=== PATIENT | male | born 1950 | race Caucasian/White ===

== ENCOUNTER 2016-11-30 14:36 | Observation (INO) ==
[2016-11-30] MEDS ORDERED: Aspirin 81 MG TAB.CHEW PO ONE (14:44)
[2016-11-30] MEDS ORDERED: 0.9 % Sodium Chloride 500 ML IVC ONE (14:44)
--- NOTE | 2016-11-30 14:48 | Emergency Department Note ---
Disposition Clinical Impression: PVC (premature ventricular contraction), History of pneumonia Chest pain Qualifiers: Chest pain type: unspecified Qualified Code(s): R07.9 - Chest pain, unspecified COPD (chronic obstructive pulmonary disease) Qualifiers: COPD type: unspecified COPD Qualified Code(s): J44.9 - Chronic obstructive pulmonary disease, unspecified Disposition: Admitted As Inpatient Condition: Fair [facility] Care Provider[facility] - Forms: ED Satisfaction Letter Chest Pain HPI - General Chief Complaint: ED Chest Pain Stated Complaint: Chest Pain Time Seen by Provider: 11/30/16 14:39 Source: patient, EMS Mode of arrival: EMS Limitations: no limitations Vital Signs Reviewed: Yes Nursing Notes Reviewed: Yes - History of Present Illness HPI Narrative: 66-year-old male history of COPD, hypertension presents for evaluation of chest pain. Patient noted the pain started just prior to arrival. Nonexertional retrosternal pain without radiation. Patient states that it felt like " somebody was pushing on his chest". Denies any history of heart attacks or MIs. Denies any other associated symptoms. Reports that the pain lasts approximately half hour and resolved spontaneously. Notes that he was taking his pulse ox and his heart rate was anywhere from 36-90. Denies any shortness of breath. On home oxygen at 2 L. No fevers. No cough. Patient was recently admitted at the [facility] and treated with pneumonia. On ciprofloxacin. No nausea vomiting or diaphoresis. At the time my examination the patient states that he is not any pain. Notes he took 2 baby aspirin prior to arrival. Denies any history of black tarry stools or blood in his stool. Pt complaint: chest pain - Related Data Home Medications Medication Instructions Recorded Confirmed Albuterol Neb [Proventil Neb] 2.5 mg IH Q4HR PRN 04/09/16 04/09/16 Benzoyl Peroxide [Foaming Acne 1 appl TP DAILY 04/09/16 04/09/16 Face Wash] Budesonide/Formoterol 160/4.5 2 puff IH BIDR PRN 04/09/16 04/09/16 [Symbicort 160/4.5] Calcium Carbonate [Calcium] 600 mg PO DAILY 04/09/16 04/09/16 Cholecalciferol (D-3) [Vitamin D] 1,000 unit PO DAILY 04/09/16 04/09/16 Cyanocobalamin (Vitamin B-12) 500 mcg PO DAILY 04/09/16 04/09/16 [Vitamin B12] Escitalopram [Lexapro] 20 mg PO DAILY 04/09/16 04/09/16 Fluticasone Propionate Nasal 1 spray NS DAILY PRN 04/09/16 04/09/16 [Flonase] Gabapentin [Neurontin] 1,200 mg PO HS 04/09/16 04/10/16 Gabapentin [Neurontin] 900 mg PO BID 04/09/16 04/10/16 Guaifenesin [Tab Tussin] 400 mg PO BID PRN 04/09/16 04/09/16 L. Acidophilus/Pectin, [place] 1 cap PO DAILY 04/09/16 04/09/16 [Acidophilus Probiotic Capsule] Levothyroxine [Synthroid] 25 mcg PO DAILY 04/09/16 04/09/16 Loperamide [Imodium] 2 mg PO Q4HR PRN 04/09/16 04/09/16 Mirtazapine [Remeron] 15 mg PO HS 04/09/16 04/09/16 Morphine Sulfate 15 mg PO BID 04/09/16 04/09/16 Previous Rx's Medication Instructions Recorded Ferrous Sulfate 325 mg PO DAILY@0800 #30 tablet 04/12/16 Omeprazole 20 mg PO DAILY #30 tablet. 04/12/16 Allergies Allergy/AdvReac Type Severity Reaction Status Date / Time No Known Allergies Allergy Verified 11/30/16 14:36 All systems ED: reviewed and negative except as stated. Constitutional: Reports: as per HPI. Denies: fever Eyes: Reports: as per HPI ENT ED: Reports: as per HPI Cardiovascular: Reports: as per HPI, chest pain, palpitations Respiratory: Reports: as per HPI. Denies: cough, dyspnea Gastrointestinal: Reports: as per HPI. Denies: abdominal pain, nausea, vomiting Genitourinary: Reports: as per HPI Musculoskeletal: Reports: as per HPI Integumentary: Reports: as per HPI Neurological: Reports: as per HPI Psychiatric: Reports: as per HPI Endocrine: Reports: as per HPI Hematological/Lymphatic: Reports: as per HPI Chest Pain PMH - Past Medical History Medical history: Reports: COPD, GI bleed, thyroid disease, other Surgical history: Reports: colectomy, other Psychiatric history: Reports: anxiety, depression - Social History Smoking Status: Former smoker Alcohol use: Reports: occasionally, recent Drug use: Reports: none Physical Exam - General Limitations: no limitations General appearance: alert, in no apparent distress - Head Head exam: atraumatic, normocephalic, normal inspection - Eye Eye exam: Present: normal appearance, PERRL, EOMI - ENT ENT exam: normal exam, mucous membranes moist - Neck Neck exam: Present: normal inspection, trachea midline - Chest Chest inspection: Present: normal inspection, symmetric chest wall rise - Respiratory Respiratory exam: Present: normal lung sounds bilaterally. Absent: respiratory distress - Cardiovascular Cardiovascular exam: Present: regular rate, normal rhythm - Abdominal Exam Abdominal exam: Present: soft, Non-Tender - Extremities Exam Extremities exam: Present: normal inspection. Absent: pedal edema - Expanded Lower Extremity Exam Neurovascular/Tendon exam: Present: normal capillary refill - Back Exam Back exam: Present: normal inspection. Absent: CVA tenderness (R), CVA tenderness (L) - Neurological Exam Neurological exam: Present: alert, oriented X3, CN II-XII intact - Skin Skin exam: Present: warm, dry, intact, normal color Course Course Narrative: Patient seen and examined. Patient is in no acute distress at time of exam. Patient does have a concerning history of chest pain. Patient does not have a history of heart attacks. Patient's records were reviewed. Patient will get EKG, chest x-ray, basic lab work including a troponin. Patient does not have risk factors for pulmonary embolism. No recent travel. No unilateral leg swelling. No history of DVT or PE. Patient's records reviewed shows that he had an EF of 67% with an nuclear stress test back in September of this year. Negative for ischemia or infarct. - Reevaluation(s) Reevaluation #1: Patient seen and examined. Patient continues to deny chest pain at this time. Patient's lab work reviewed shows a negative troponin with a nonacute EKG. Discussed disposition and plan of care. Recommended admission at this time. Patient agrees Time: 15:38 Vital Signs Temperature 98.0 F 11/30/16 14:38 Pulse Rate 60 11/30/16 14:38 Respiratory Rate 10 11/30/16 14:38 Blood Pressure 150/90 11/30/16 14:38 O2 Sat by Pulse Oximetry 94 11/30/16 14:38 Temperature 98.0 F 11/30/16 14:38 Pulse Rate 58 11/30/16 15:23 Respiratory Rate 10 11/30/16 14:47 Blood Pressure 142/92 11/30/16 15:23 O2 Sat by Pulse Oximetry 93 11/30/16 15:23 Oxygen Delivery Oxygen Delivery Nasal Cannula Chest Pain - MDM Narrative Medical decision making narrative: 66-year-old male for evaluation of chest pain. Patient had a concerning story with nonexertional retrosternal chest pressure she described. No history of cardiac disease in the past. Did have a negative stress test is performed back in September of this year. Given the patient's risk factors and elevated heart score patient will be admitted to the hospital service for further evaluation monitoring. Patient's pain has resolved prior to the [facility] department. Patient was also receiving antibiotics for recent pneumonia. Patient's chest x- ray does show basilar coarse interstitial markings. Patient lab work has been reviewed. Patient has a negative troponin from 30 minutes of nonexertional chest pain. Patient's EKG shows no acute changes but does show a PVC. Patient will be admitted. Patient's plan of care was discussed at bedside. All questions were answered. - Lab Data Lab results reviewed: Yes I reviewed the patient's lab results. Result diagrams: 11/30/16 14:53 11/30/16 14:53 Lab Results 11/30/16 11/30/16 11/30/16 Range/Units 14:53 14:53 14:53 WBC 6.0 (4.3-11.1) K/mcL RBC 4.86 (4.19-5.50) M/mcL Hgb 14.5 (12.9-16.9) g/dL Hct 45.6 (37.5-50.1) % MCV 93.8 (83.0-100.0) fL MCH 29.8 (28.0-33.3) pg MCHC 31.8 (31.6-35.5) g/dL RDW 13.5 (11.5-14.5) % Plt Count 136 L (140-400) K/mcL MPV 11.7 (9.4-12.4) fL Immature Gran % 0.3 (0-4) % Seg Neutrophils % 60.9 % Lymphocytes % 19.2 % Monocytes % 11.4 % Eosinophils % 7.4 % Basophils % 0.8 % Neutrophils # 3.6 (1.6-8.9) K/mcL Lymphocytes # 1.2 (0.6-4.6) K/mcL Monocytes # 0.7 (0.0-1.3) K/mcL Eosinophils # 0.4 (0.0-0.6) K/mcL Basophils # 0.1 (0.0-0.2) K/mcL Sodium 142 (136-145) mEq/L Potassium 3.8 (3.5-4.5) mEq/L Chloride 106 (98-109) mEq/L Carbon Dioxide 30 H (19-29) mEq/L BUN 17 (8-26) mg/dL Creatinine 0.96 (0.72-1.25) mg/dL Est GFR ( Amer) > 60 (> 60) Est GFR (Non-Af Amer) > 60 (> 60) BUN/Creatinine Ratio 18 (6-26) Glucose 101 H (70-99) mg/dL Calculated Osmolality 296 (280-300) Calcium 9.2 (8.6-10.8) mg/dL Troponin I (0-0.03) ng/mL B-Natriuretic Peptide 116 H (0-100) pg/mL 11/30/16 Range/Units 14:53 WBC (4.3-11.1) K/mcL RBC (4.19-5.50) M/mcL Hgb (12.9-16.9) g/dL Hct (37.5-50.1) % MCV (83.0-100.0) fL MCH (28.0-33.3) pg MCHC (31.6-35.5) g/dL RDW (11.5-14.5) % Plt Count (140-400) K/mcL MPV (9.4-12.4) fL Immature Gran % (0-4) % Seg Neutrophils % % Lymphocytes % % Monocytes % % Eosinophils % % Basophils % % Neutrophils # (1.6-8.9) K/mcL Lymphocytes # (0.6-4.6) K/mcL Monocytes # (0.0-1.3) K/mcL Eosinophils # (0.0-0.6) K/mcL Basophils # (0.0-0.2) K/mcL Sodium (136-145) mEq/L Potassium (3.5-4.5) mEq/L Chloride (98-109) mEq/L Carbon Dioxide (19-29) mEq/L BUN (8-26) mg/dL Creatinine (0.72-1.25) mg/dL Est GFR ( Amer) (> 60) Est GFR (Non-Af Amer) (> 60) BUN/Creatinine Ratio (6-26) Glucose (70-99) mg/dL Calculated Osmolality (280-300) Calcium (8.6-10.8) mg/dL Troponin I 0.00 (0-0.03) ng/mL B-Natriuretic Peptide (0-100) pg/mL - Radiology Data Radiology results reviewed: Yes I reviewed the patient's radiology results. Chest X-Ray 11/30/16 14:44 IMPRESSION: Coarsening of the basilar interstitial markings. The findings are suggestive of an infectious or inflammatory pneumonitis. Changes appear similar to images through the lung bases on CT of the abdomen in April of 2016. D/ / Surinder Tipton MD / Surinder Tipton MD Interpreting Provider: Surinder Tipton MD - EKG Data EKG attestation: Yes I reviewed and interpreted this EKG. EKG shows normal: sinus rhythm Rate: normal Rhythm: NSR [place]/QRS: normal T wave inversions noted in: III, v1 Ectopy: PVC When compared to previous EKG there are: no significant changes (04/2016) Interpretation: nonspecific ST-T wave changes Heart Score - Score History: Highly Suspicious EKG: Non Specific repolarisation Disturbance Age: Greater than 65 Risk Factors: 1-2 risk factors Troponin: Less than normal limit HEART Score Total: 6 S.B.A.RHeidi - S.B.A.RHeidi Situation: Demographics Background: Presenting Complaint Assessment: Vital Signs, Course and respsone to treatment, Patient/Family Expectation, Pertinant Lab Results Recommendation: Barrier(s) to disposition, Recommendation based on pending studies, treatments, or consults S.B.A.RHeidi Report Given to: Dr. Doni Gilliam Repor Time: 15:44
--- NOTE | 2016-11-30 14:51 | Emergency Department Note ---
Disposition Clinical Impression: Chest pain, PVC (premature ventricular contraction), COPD (chronic obstructive pulmonary disease), History of pneumonia Disposition: Admitted As Inpatient Condition: Fair General Adult HPI - General Chief complaint: ED Chest Pain Stated complaint: Chest Pain Time Seen by Provider: 11/30/16 14:39 Source: patient, EMS Mode of arrival: EMS Limitations: no limitations - History of Present Illness Pain Scale: 0 - Related Data Home Medications Medication Instructions Recorded Confirmed Albuterol Neb [Proventil Neb] 2.5 mg IH Q4HR PRN 04/09/16 11/30/16 Benzoyl Peroxide [Foaming Acne 1 appl TP DAILY 04/09/16 11/30/16 Face Wash] Budesonide/Formoterol 160/4.5 2 puff IH BIDR PRN 04/09/16 11/30/16 [Symbicort 160/4.5] Calcium Carbonate [Calcium] 600 mg PO DAILY 04/09/16 11/30/16 Cholecalciferol (D-3) [Vitamin D] 1,000 unit PO DAILY 04/09/16 11/30/16 Cyanocobalamin (Vitamin B-12) 500 mcg PO DAILY 04/09/16 11/30/16 [Vitamin B12] Escitalopram [Lexapro] 20 mg PO DAILY 04/09/16 11/30/16 Fluticasone Propionate Nasal 1 spray NS DAILY PRN 04/09/16 11/30/16 [Flonase] Gabapentin [Neurontin] 1,200 mg PO HS 04/09/16 11/30/16 Gabapentin [Neurontin] 900 mg PO BID 04/09/16 11/30/16 Guaifenesin [Tab Tussin] 400 mg PO BID PRN 04/09/16 11/30/16 L. Acidophilus/Pectin, [place] 1 cap PO DAILY 04/09/16 11/30/16 [Acidophilus Probiotic Capsule] Levothyroxine [Synthroid] 25 mcg PO DAILY 04/09/16 11/30/16 Loperamide [Imodium] 2 mg PO Q4HR PRN 04/09/16 11/30/16 Mirtazapine [Remeron] 15 mg PO HS 04/09/16 11/30/16 Morphine Sulfate 30 mg PO BID 04/09/16 11/30/16 Albuterol Sulfate [Albuterol 2 puff IH Q6HR PRN 11/30/16 11/30/16 Inhaler] Aspirin [Ecotrin] 325 mg PO DAILY 11/30/16 11/30/16 Atorvastatin Calcium [Lipitor] 20 mg PO DAILY 11/30/16 11/30/16 Benzocaine/Menthol [place] [Cepacol 1 lozenge MM Q2H 11/30/16 11/30/16 Sore Throat Lozenge] Ciprofloxacin HCl [Cipro] 500 mg PO BID 11/30/16 11/30/16 Lisinopril [Zestril] 10 mg PO DAILY 11/30/16 11/30/16 Polyethylene Glycol 3350 17 gm PO DAILY 11/30/16 11/30/16 [Smoothlax] Propranolol [Inderal] 10 mg PO TID 11/30/16 11/30/16 Previous Rx's Medication Instructions Recorded Ferrous Sulfate 325 mg PO DAILY@0800 #30 tablet 04/12/16 Omeprazole 20 mg PO DAILY #30 tablet. 04/12/16 Allergies Allergy/AdvReac Type Severity Reaction Status Date / Time No Known Allergies Allergy Verified 11/30/16 14:36 Past Medical History - Past Medical History Medical history: Reports: COPD, GI bleed, thyroid disease, other Surgical history: Reports: colectomy, other Psychiatric history: Reports: anxiety, depression - Social History Smoking Status: Former smoker Smokeless Tobacco Status: No Alcohol use: Reports: occasionally, recent Drug use: Reports: none Physical Exam - General Limitations: no limitations General appearance: alert, in no apparent distress Course Vital Signs Temperature 98.0 F 11/30/16 14:38 Pulse Rate 60 11/30/16 14:38 Respiratory Rate 10 11/30/16 14:38 Blood Pressure 150/90 11/30/16 14:38 O2 Sat by Pulse Oximetry 94 11/30/16 14:38 Temperature 97.8 F 11/30/16 18:46 Pulse Rate 57 11/30/16 18:46 Respiratory Rate 17 11/30/16 18:46 Blood Pressure 114/75 11/30/16 18:46 O2 Sat by Pulse Oximetry 93 11/30/16 18:46 Oxygen Delivery Oxygen Delivery Nasal Cannula Medical Decision Making - Lab Data Result diagrams: 11/30/16 14:53 11/30/16 14:53 Lab Results 11/30/16 11/30/1617 Range/Units 14:53 14:53 14:53 WBC 6.0 (4.3-11.1) K/mcL RBC 4.86 (4.19-5.50) M/mcL Hgb 14.5 (12.9-16.9) g/dL Hct 45.6 (37.5-50.1) % MCV 93.8 (83.0-100.0) fL MCH 29.8 (28.0-33.3) pg MCHC 31.8 (31.6-35.5) g/dL RDW 13.5 (11.5-14.5) % Plt Count 136 L (140-400) K/mcL MPV 11.7 (9.4-12.4) fL Immature Gran % 0.3 (0-4) % Seg Neutrophils % 60.9 % Lymphocytes % 19.2 % Monocytes % 11.4 % Eosinophils % 7.4 % Basophils % 0.8 % Neutrophils # 3.6 (1.6-8.9) K/mcL Lymphocytes # 1.2 (0.6-4.6) K/mcL Monocytes # 0.7 (0.0-1.3) K/mcL Eosinophils # 0.4 (0.0-0.6) K/mcL Basophils # 0.1 (0.0-0.2) K/mcL Sodium 142 (136-145) mEq/L Potassium 3.8 (3.5-4.5) mEq/L Chloride 106 (98-109) mEq/L Carbon Dioxide 30 H (19-29) mEq/L BUN 17 (8-26) mg/dL Creatinine 0.96 (0.72-1.25) mg/dL Est GFR ( Amer) > 60 (> 60) Est GFR (Non-Af Amer) > 60 (> 60) BUN/Creatinine Ratio 18 (6-26) Glucose 101 H (70-99) mg/dL Calculated Osmolality 296 (280-300) Calcium 9.2 (8.6-10.8) mg/dL Phosphorus 3.3 (2.3-4.7) mg/dL Magnesium 2.3 (1.6-2.6) mg/dL Troponin I (0-0.03) ng/mL B-Natriuretic Peptide 116 H (0-100) pg/mL 11/30/16 Range/Units 14:53 WBC (4.3-11.1) K/mcL RBC (4.19-5.50) M/mcL Hgb (12.9-16.9) g/dL Hct (37.5-50.1) % MCV (83.0-100.0) fL MCH (28.0-33.3) pg MCHC (31.6-35.5) g/dL RDW (11.5-14.5) % Plt Count (140-400) K/mcL MPV (9.4-12.4) fL Immature Gran % (0-4) % Seg Neutrophils % % Lymphocytes % % Monocytes % % Eosinophils % % Basophils % % Neutrophils # (1.6-8.9) K/mcL Lymphocytes # (0.6-4.6) K/mcL Monocytes # (0.0-1.3) K/mcL Eosinophils # (0.0-0.6) K/mcL Basophils # (0.0-0.2) K/mcL Sodium (136-145) mEq/L Potassium (3.5-4.5) mEq/L Chloride (98-109) mEq/L Carbon Dioxide (19-29) mEq/L BUN (8-26) mg/dL Creatinine (0.72-1.25) mg/dL Est GFR ( Amer) (> 60) Est GFR (Non-Af Amer) (> 60) BUN/Creatinine Ratio (6-26) Glucose (70-99) mg/dL Calculated Osmolality (280-300) Calcium (8.6-10.8) mg/dL Phosphorus (2.3-4.7) mg/dL Magnesium (1.6-2.6) mg/dL Troponin I 0.00 (0-0.03) ng/mL B-Natriuretic Peptide (0-100) pg/mL Attestation Statement - Attestation Attestation: I examined this patient and my medical decision-making was reviewed with the FREIGHT UNLOADER/PA/Advanced Practice Nurse/Resident Physician. I agree with the documented findings, disposition and treatment plan as described except to the extent set forth below. [id number] time provided Patient complains of chest discomfort. No previous history of coronary artery disease. Appears in no acute distress on exam. EKG reviewed by me
[2016-11-30 15:02] LABS: Basophils # 0.1 K/mcL (0.0-0.2); Basophils % 0.8 %; Eosinophils # 0.4 K/mcL (0.0-0.6); Eosinophils % 7.4 %; Hematocrit 45.6 % (37.5-50.1); Hemoglobin 14.5 g/dL (12.9-16.9); Immature Granulocytes % 0.3 % (0-4); Lymphocytes # 1.2 K/mcL (0.6-4.6); Lymphocytes % 19.2 %; Mean Corpuscular HGB Conc 31.8 g/dL (31.6-35.5); Mean Corpuscular Hemoglobin 29.8 pg (28.0-33.3); Mean Corpuscular Volume 93.8 fL (83.0-100.0); Mean Platelet Volume 11.7 fL (9.4-12.4); Monocytes # 0.7 K/mcL (0.0-1.3); Monocytes % 11.4 %; Neutrophils # 3.6 K/mcL (1.6-8.9); Platelet Count 136 K/mcL (140-400); Red Blood Count 4.86 M/mcL (4.19-5.50); Red Cell Distribution Width 13.5 % (11.5-14.5); Segmented Neutrophils % 60.9 %
[2016-11-30 15:14] LABS: BUN/Creatinine Ratio 18 (6-26); Blood Urea Nitrogen 17 mg/dL (8-26); Calcium 9.2 mg/dL (8.6-10.8); Carbon Dioxide 30 mEq/L (19-29); Chloride 106 mEq/L (98-109); Glucose 101 mg/dL (70-99); Osmolality,Calculated 296 (280-300); Potassium 3.8 mEq/L (3.5-4.5); Sodium 142 mEq/L (136-145); eGFR For African Americans > 60 (> 60); eGFR For Non-African Americans > 60 (> 60)
[2016-11-30 15:48] LABS: Magnesium 2.3 mg/dL (1.6-2.6); Phosphorous 3.3 mg/dL (2.3-4.7)
[2016-11-30] MEDS ORDERED: Acetaminophen 325 MG TABLET PO PRN (15:57)
[2016-11-30] MEDS ORDERED: Naloxone 0.4 MG/ML INJ IVP PRN (15:57)
--- NOTE | 2016-11-30 16:27 | Event Note ---
Date of Encounter: 11/30/16 Time of Encounter: 16:26 Patient seen and examined with nurse practitioner. Rule out acute coronary syndrome. Recent diagnoses of pneumonia. continue Levaquin. He is currently chest pain free. Initial troponin normal. Check serial troponin's. He has an appointment with Dr. Mercado at 2 PM tomorrow.
[2016-11-30] MEDS ORDERED: Budesonide/Formoterol 160/4.5 MDI IH PRN (16:39)
[2016-11-30] MEDS ORDERED: GuaiFENesin Liq 200 MG/10 ML UDC PO PRN (16:39)
--- NOTE | 2016-11-30 16:54 | Internal Med History&Physical ---
Date of Encounter: 11/30/16 Time of Encounter: 16:47 Assessment and Plan (1) Chest pain Current visit: Yes Status: Acute Patient complains of chest pain described as pressure in mid sternum with stabbing radiating to bilateral shoulders on and off for about 2 hours accompanied by lightheadedness and palpitations. EKG shows sinus rhythm with occasional PVCs. Troponin negative at 0.00. He had a stress test in September which was negative for ischemia. continuous lunchroom monitor serial troponins echocardiogram Qualifiers: Chest pain type: precordial pain Qualified Code(s): R07.2 - Precordial pain (2) COPD (chronic obstructive pulmonary disease) Current visit: No Status: Acute Patient wears 2L O2 PRN at home. Recent diagnosis of pneumonia 1 week ago, but not in exacerbation currently. duoneb treatments QID albuterol nebulizer Q2hr PRN Continue budesonide/formotorol BID titrate oxygen to maintain O2 sat > 92% Qualifiers: COPD type: unspecified COPD Qualified Code(s): J44.9 - Chronic obstructive pulmonary disease, unspecified (3) Chronic back pain Current visit: No Status: Acute Continue home doses of morphine BID and neurontin. Qualifiers: Back pain location: low back pain Back pain laterality: unspecified Sciatica presence: without sciatica Qualified Code(s): M54.5 - Low back pain; G89.29 - Other chronic pain (4) History of pneumonia Current visit: Yes Status: Acute Patient on cipro for pneumonia diagnosed 1 week ago. EKG shows prolonged QTc of 451, will switch to Doxycycline. duonebs QID albuterol nebulizer Q2hr prn titrate O2 to maintain oxygen saturation > 92%. (5) Prolonged Q-T interval on ECG Current visit: Yes Status: Acute EKG shows sinus rhythm with occasional PVCs. QTc prolonged at 451. Patient has been on cipro for the last week due to pneumonia. Will switch to doxycycline 100mg IVPB BID. Continuous lunchroom monitor. (6) DVT prophylaxis Current visit: No Status: Acute Calf sequential compression devices Patient with 2 episodes of GI bleed, with most recent episode last fall. Will hold pharmacologic prophylaxis. Internal Medicine - H&P: HPI Chief complaint: chest pain Admitted From: Emergency Dept Plans for Post Hospital Care: Home History of present illness: Mr. Abel is a 66 year old male with hypertension, COPD, hypothyroid, GERD, history of GI bleeds, presents to the ED today with complaints of chest pain. He reports it started at 1 pm this afternoon, and he describes it as pressure in the middle of his chest with occasional stabs to the left and right shoulder. The pain was on and off and lasted about 2 hours. He also noted that his heart rate was bouncing around from the 30s to the 90s during that time , he was using a pulse oximeter to track his heart rate. He reports he had some lightheadedness and headache. He denies shortness of breath, nausea, vomiting, abdominal pain, fever, chills or sweats. Evaluation in the ED included an EKG which showed sinus rhythm with occasional PVCs, no changes from previous ekg, troponin was negative at 0.00, BNP was mildly elevated at 116. WBC was normal. On exam, patient denying any active chest pain. Patient alert and oriented, in no distress. Heart had regular rhythm, lungs with some mild rhonchi in left base. Past Med Surg Social Fam HX - Past Medical History Medical history: COPD, GERD, GI bleed, hyperlipidemia, hypertension, thyroid disease, other Psychiatric history: anxiety, depression - Past Surgical History Surgical History: colectomy, orthopedic, other (toe, left wrist), other - Social History Smoking Status: Former smoker (45 pack year history) Smokeless Tobacco Status: No Alcohol use: none Drug use: none - Family History Mother Living Status: Age at : 62 Cause of : [place] Hx Family Cardiac Disorders: Yes Hx Family Respiratory Disorders: No Hx Family Cancer: Yes (Lymphoma) Hx Family GI Disorders: Yes (Ulcers) Hx Family Endocrine Disorder: No Hx Family Neuromuscular Disorders: No Hx Family Neurologic Disorders: No Hx Family HEENT Disorders: No Hx Family Autoimmune Disorders: No Father Living Status: Age at : 70 Cause of : lymphoma Hx Family Cancer: Yes Internal Medicine - H&P: Meds Albuterol Neb [Proventil Neb] 2.5 mg IH Q4HR PRN 04/09/16 [History] Benzoyl Peroxide [Foaming Acne Face Wash] 1 appl TP DAILY 04/09/16 [History] Budesonide/Formoterol 160/4.5 [Symbicort 160/4.5] 2 puff IH BIDR PRN 04/09/16 [ History] Calcium Carbonate [Calcium] 600 mg PO DAILY 04/09/16 [History] Cholecalciferol (D-3) [Vitamin D] 1,000 unit PO DAILY 04/09/16 [History] Cyanocobalamin (Vitamin B-12) [Vitamin B12] 500 mcg PO DAILY 04/09/16 [History] Escitalopram [Lexapro] 20 mg PO DAILY 04/09/16 [History] Fluticasone Propionate Nasal [Flonase] 1 spray NS DAILY PRN 04/09/16 [History] Gabapentin [Neurontin] 1,200 mg PO HS 04/09/16 [History] Gabapentin [Neurontin] 900 mg PO BID 04/09/16 [History] Guaifenesin [Tab Tussin] 400 mg PO BID PRN 04/09/16 [History] L. Acidophilus/Pectin, [place] [Acidophilus Probiotic Capsule] 1 cap PO DAILY 04/16 [History] Levothyroxine [Synthroid] 25 mcg PO DAILY 04/09/16 [History] Loperamide [Imodium] 2 mg PO Q4HR PRN 04/09/16 [History] Mirtazapine [Remeron] 15 mg PO HS 04/09/16 [History] Morphine Sulfate 30 mg PO BID 04/09/16 [History] Ferrous Sulfate 325 mg PO DAILY@0800 #30 tablet 04/12/16 [Rx] Omeprazole 20 mg PO DAILY #30 tablet. 04/12/16 [Rx] Albuterol Sulfate [Albuterol Inhaler] 2 puff IH Q6HR PRN 11/30/16 [History] Aspirin [Ecotrin] 325 mg PO DAILY 11/30/16 [History] Atorvastatin Calcium [Lipitor] 20 mg PO DAILY 11/30/16 [History] Benzocaine/Menthol Marian [Cepacol Sore Throat Lozenge] 1 lozenge MM Q2H 11/30/16 [ History] Ciprofloxacin HCl [Cipro] 500 mg PO BID 11/30/16 [History] Lisinopril [Zestril] 10 mg PO DAILY 11/30/16 [History] Polyethylene Glycol 3350 [Smoothlax] 17 gm PO DAILY 11/30/16 [History] Propranolol [Inderal] 10 mg PO TID 11/30/16 [History] Allergies No Known Allergies Allergy (Verified 11/30/16 14:36) All Systems PM: A 10-system review of systems was performed and is negative for pertinent findings except as documented above in the HPI. - Constitutional Constitutional: no chills, no fever(s), no night sweats - EENT Eyes: no change in vision, no discharge, no pain, no photophobia Ears: no ear discharge, no ear pain, no tinnitus Nose, mouth and throat: no dysphagia, no nasal discharge, no neck pain, no sore throat - Cardiovascular Cardiovascular ROS IM: chest pain, lightheadedness, palpitations, no diaphoresis , no dyspnea, no syncope - Respiratory Respiratory: no cough, no dyspnea, no wheezing, no excessive phlegm production - Gastrointestinal Gastrointestinal: no abdominal pain, no diarrhea, no hematemesis, no hematochezia, no melena, no nausea, no vomiting - Musculoskeletal Musculoskeletal ROS IM: no numbness, no tingling - Integumentary Integumentary IM: no rash, no unusual bruising - Neurological Neurological ROS: no confusion, no convulsions, no focal weakness, no numbness, no tingling, no tremor(s) - Hematologic/Lymphatic Hematologic/Lymphatic: no easy bruising - Constitutional Vitals: Temp Pulse Resp BP Pulse Ox 97.6 F 46 17 146/88 94 11/30/16 16:19 11/30/16 16:19 11/30/16 16:19 11/30/16 16:19 11/30/16 16:19 General appearance: Present: A&O X 3, pleasant, no acute distress - Head Head exam: Present: atraumatic, normocephalic - Eye Eye exam: Present: PERRL, conjuntiva pink, sclera anicteric Pupils: Present: PERRL - Neck Neck exam general surgery: Present: supple, trachea midline. Absent: lymphadenopathy - Respiratory Respiratory exam: Present: CTAB. Absent: accessory muscle use, rales, rhonchi, wheezes - Cardiovascular Cardiovascular exam: Present: RRR, +S1, +S2. Absent: diastolic murmur, gallop, rubs, systolic murmur - GI/Abdominal GI/Abdominal exam: Present: normal bowel sounds, soft, no peritoneal signs. Absent: distended, tenderness - Extremities Exam Extremities exam: Present: warm, radial pulses palpable and symetrical. Absent : calf tenderness, cyanotic, pedal edema - Neurological Exam Neurological exam: Present: CN II-XII intact, oriented X3, no focal deficits. Absent: facial droop, speech deficit - Skin Skin exam: Present: dry, intact Internal Med - H&P Results - Labs CBC & Chem 7: 11/30/16 14:53 11/30/16 14:53 Labs: All Lab Results (24 Hours) 11/30/16 11/30/16 11/30/16 Range/Units 14:53 14:53 14:53 WBC 6.0 (4.3-11.1) K/mcL RBC 4.86 (4.19-5.50) M/mcL Hgb 14.5 (12.9-16.9) g/dL Hct 45.6 (37.5-50.1) % MCV 93.8 (83.0-100.0) fL MCH 29.8 (28.0-33.3) pg MCHC 31.8 (31.6-35.5) g/dL RDW 13.5 (11.5-14.5) % Plt Count 136 L (140-400) K/mcL MPV 11.7 (9.4-12.4) fL Immature Gran % 0.3 (0-4) % Seg Neutrophils % 60.9 % Lymphocytes % 19.2 % Monocytes % 11.4 % Eosinophils % 7.4 % Basophils % 0.8 % Neutrophils # 3.6 (1.6-8.9) K/mcL Lymphocytes # 1.2 (0.6-4.6) K/mcL Monocytes # 0.7 (0.0-1.3) K/mcL Eosinophils # 0.4 (0.0-0.6) K/mcL Basophils # 0.1 (0.0-0.2) K/mcL Sodium 142 (136-145) mEq/L Potassium 3.8 (3.5-4.5) mEq/L Chloride 106 (98-109) mEq/L Carbon Dioxide 30 H (19-29) mEq/L BUN 17 (8-26) mg/dL Creatinine 0.96 (0.72-1.25) mg/dL Est GFR ( Amer) > 60 (> 60) Est GFR (Non-Af Amer) > 60 (> 60) BUN/Creatinine Ratio 18 (6-26) Glucose 101 H (70-99) mg/dL Calculated Osmolality 296 (280-300) Calcium 9.2 (8.6-10.8) mg/dL Phosphorus 3.3 (2.3-4.7) mg/dL Magnesium 2.3 (1.6-2.6) mg/dL Troponin I (0-0.03) ng/mL B-Natriuretic Peptide 116 H (0-100) pg/mL 11/30/16 Range/Units 14:53 WBC (4.3-11.1) K/mcL RBC (4.19-5.50) M/mcL Hgb (12.9-16.9) g/dL Hct (37.5-50.1) % MCV (83.0-100.0) fL MCH (28.0-33.3) pg MCHC (31.6-35.5) g/dL RDW (11.5-14.5) % Plt Count (140-400) K/mcL MPV (9.4-12.4) fL Immature Gran % (0-4) % Seg Neutrophils % % Lymphocytes % % Monocytes % % Eosinophils % % Basophils % % Neutrophils # (1.6-8.9) K/mcL Lymphocytes # (0.6-4.6) K/mcL Monocytes # (0.0-1.3) K/mcL Eosinophils # (0.0-0.6) K/mcL Basophils # (0.0-0.2) K/mcL Sodium (136-145) mEq/L Potassium (3.5-4.5) mEq/L Chloride (98-109) mEq/L Carbon Dioxide (19-29) mEq/L BUN (8-26) mg/dL Creatinine (0.72-1.25) mg/dL Est GFR ( Amer) (> 60) Est GFR (Non-Af Amer) (> 60) BUN/Creatinine Ratio (6-26) Glucose (70-99) mg/dL Calculated Osmolality (280-300) Calcium (8.6-10.8) mg/dL Phosphorus (2.3-4.7) mg/dL Magnesium (1.6-2.6) mg/dL Troponin I 0.00 (0-0.03) ng/mL B-Natriuretic Peptide (0-100) pg/mL - Diagnostic Studies Chest x-ray Additional comments: Chest X-Ray 11/30/16 14:44 IMPRESSION: Coarsening of the basilar interstitial markings. The findings are suggestive of an infectious or inflammatory pneumonitis. Changes appear similar to images through the lung bases on CT of the abdomen in April of 2016. D/ / Surinder Tipton MD / Surinder Tipton MD Interpreting Provider: Surinder Tipton MD
[2016-11-30] MEDS ORDERED: Albuterol 2.5 MG/3 ML NEBULIZER IH PRN (16:59)
[2016-11-30] MEDS: Doxycycline 100 MG in 0.9 % Sodium Chloride Mini Bag 100 ML IVPB SCH (19:17)
[2016-11-30] MEDS: Ipratropium/Albuterol Neb 3 ML IH SCH ×2 (20:01→22:15)
[2016-11-30] MEDS ORDERED: Gabapentin 400 MG CAPSULE PO SCH (21:00)
[2016-11-30] MEDS ORDERED: Mirtazapine 15 MG TABLET PO SCH (21:00)
[2016-11-30] MEDS: Gabapentin 300 MG CAPSULE PO SCH (21:22)
[2016-11-30] MEDS: *HR* Morphine Sulfate SR (12 HR) 30 MG TABLET.ER PO SCH (21:24)
[2016-12-01] MEDS: Ipratropium/Albuterol Neb 3 ML IH SCH ×2 (04:42→11:00)
[2016-12-01 05:29] LABS: Basophils % 0.7 %; Eosinophils # 0.4 K/mcL (0.0-0.6); Hematocrit 44.7 % (37.5-50.1); Hemoglobin 14.2 g/dL (12.9-16.9); Immature Granulocytes % 0.5 % (0-4); Lymphocytes # 1.4 K/mcL (0.6-4.6); Lymphocytes % 23.2 %; Mean Corpuscular HGB Conc 31.8 g/dL (31.6-35.5); Mean Corpuscular Volume 94.3 fL (83.0-100.0); Monocytes # 0.6 K/mcL (0.0-1.3); Monocytes % 9.6 %; Neutrophils # 3.5 K/mcL (1.6-8.9); Platelet Count 122 K/mcL (140-400); Red Blood Count 4.74 M/mcL (4.19-5.50); Red Cell Distribution Width 13.4 % (11.5-14.5)
[2016-12-01] MEDS: Doxycycline 100 MG in 0.9 % Sodium Chloride Mini Bag 100 ML IVPB SCH (05:51)
[2016-12-01 05:52] LABS: BUN/Creatinine Ratio 18 (6-26); Blood Urea Nitrogen 16 mg/dL (8-26); Calcium 8.8 mg/dL (8.6-10.8); Carbon Dioxide 30 mEq/L (19-29); Chloride 106 mEq/L (98-109); Glucose 96 mg/dL (70-99); Osmolality,Calculated 295 (280-300); Potassium 3.8 mEq/L (3.5-4.5); Sodium 142 mEq/L (136-145); eGFR For African Americans > 60 (> 60); eGFR For Non-African Americans > 60 (> 60)
[2016-12-01] MEDS: Gabapentin 300 MG CAPSULE PO SCH (08:07)
[2016-12-01] MEDS: *HR* Morphine Sulfate SR (12 HR) 30 MG TABLET.ER PO SCH (08:07)
[2016-12-01] MEDS ORDERED: Lactobacillus 1 EACH CAP.SPRINK PO SCH (09:00)
[2016-12-01] MEDS ORDERED: Levothyroxine 25 MCG TABLET PO SCH (09:00)
[2016-12-01] MEDS ORDERED: Cyanocobalamin (B-12) 1,000 MCG TABLET PO SCH (09:00)
[2016-12-01] MEDS ORDERED: Aspirin Enteric Coated 325 MG Tablet PO SCH (09:00)
[2016-12-01 10:50] VITALS: BP 127/80
--- NOTE | 2016-12-01 12:02 | ECHO - Doppler Report ---
Echocardiogram Name: Surinder Abel Date of Study: 12/01/2016 Date: 1950 Ht: 73.0 in Medical Record#: [id number] Age: 66 Wt: 176.0 lb Gender: Male BSA: 2.04 Order #: [id number] Location: [facility] Room #: 3B12 Reading Physician: Chan Ramirez DO, JULIANNE HEAD Roving Machine Operator: Matthew Gabriel Ordering Physician: Rekha Mcqueen CNP Primary Physician: [facility] Indications: Chest pain Impressions: LVEF 60%. Normal LV chamber size, wall thickness and function. Mild left ventricular diastolic dysfunction. Atypical septal motion of unclear etiology. Mild to moderately dilated left atrium. Mildly dilated right ventricle with normal function. Moderate pulmonary hypertension. No significant valvular dysfunction. Left Ventricular Wall Motion: Rest Echo Findings All wall segments showed normal motion. Findings: Study Quality * Technically adequate exam. ECG Findings * Sinus bradycardia. Left Ventricle * LVEF 60%. * Normal LV chamber size, wall thickness and function. * Mild left ventricular diastolic dysfunction. * Atypical septal motion of unclear etiology. Right Ventricle * Mildly dilated right ventricle with normal function. Left Atrium * Mild to moderately dilated left atrium. Right Atrium * Mildly dilated right atrium. Interatrial Septum * Interatrial septum not well evaluated. Aortic Valve * Trileaflet aortic valve. * Trace aortic regurgitation. * No aortic stenosis. Mitral Valve * Mildly thickened mitral valve leaflets. * No mitral regurgitation. * No mitral stenosis. Tricuspid Valve * Normal tricuspid valve structure and function. * Trace tricuspid regurgitation. * Moderate pulmonary hypertension. Pulmonic Valve * Normal pulmonic valve structure and function. * No pulmonic regurgitation. Aorta * Normally sized aortic root. Pericardium * The pericardium appears normal. IVC * Normal IVC dimensions and inspiratory collapse. Pulmonary Artery * Normal visualized portions of the main pulmonary artery. History Hypertension Hypercholesteremia Years 30 Packs 1.5 Family History of CAD 08/07/2015 a Previous Echo was performed. Measurements: BP: 154/ 91 2D Normal Values RVIDd: 3.50 cm <2.7 cm IVSd: .80 cm 0.6 - 1.0 cm LVIDd: 5.20 cm 3.7 - 5.6 cm LVPWd: .90 cm 0.6 - 1.1 cm LVIDs: 3.90 cm 1.5 - 3.6 cm AO: 2.90 cm < 4.0 cm LA: 4.30 cm 2.0 - 4.0cm %FS: 31.60 cm >25 % LA volume: 63 Mitral Valve Peak E:.38 m/sec Peak A:.71 m/sec E/A Ratio:0.5 Peak E' Lat Stephen:6.04 cm/s Peak E' Med Stephen:5.85 cm/s E/E' Lat Ratio:6.29 E/E' Med Ratio:6.49 Aortic Valve AI pressure Half-time: 677.00 msec Tricuspid Valve TV Regurg Peak Grad: 45.00mmHg TV Regurg Peak Stephen: 3.34m/sec Updated by Chan Ramirez DO, FACEllyn, HUMBLE WHITAKER on 12/01/2016 11:56:47 AM electronically signed on 12/01/2016 11:57:57 AM with status of Final Wall Motion [place]: 1=Normal, 2=Hypokinesis, 3=Akinesis, 4=Dyskinesis, 5=Aneurysmal, 6=Hyperkinetic, X=Not Visualized (Blank)=Missing
--- NOTE | 2016-12-01 12:38 | Discharge Summary ---
Date of Encounter: 12/01/16 Time of Encounter: 12:00 - Discharge Diagnosis (1) Chest pain Priority: Primary Status: Resolved Comments: Patient denied chest pain on the of discharge. Negative stress test in September. Echocardiogram unremarkable with ejection fraction of 60%. Euvolemic on examination. Follow up outpatient with cardiology Qualifiers: Chest pain type: precordial pain Qualified Code(s): R07.2 - Precordial pain (2) Pneumonitis Priority: Primary Status: Acute Comments: Patient was diagnosed with pneumonia 1 week prior to presentation was started on ciprofloxacin. EKG with prolonged QTC of 451 so he was changed to doxycycline. Repeat imaging consistent with inflammatory/infectious pneumonitis. Patient was on room air during this admission and denied shortness of breath above his norm. Continue doxycycline and follow-up outpatient. ITS Impressions Chest X-Ray 11/30/16 14:44 IMPRESSION: Coarsening of the basilar interstitial markings. The findings are suggestive of an infectious or inflammatory pneumonitis. Changes appear similar to images through the lung bases on CT of the abdomen in April of 2016. D/ / Surinder Tipton MD / Surinder Tipton MD Interpreting Provider: Surinder Tipton MD (3) History of pneumonia Priority: Secondary Status: Chronic (4) COPD (chronic obstructive pulmonary disease) Priority: Secondary Status: Chronic Comments: No acute exacerbation. Qualifiers: COPD type: unspecified COPD Qualified Code(s): J44.9 - Chronic obstructive pulmonary disease, unspecified (5) Chronic back pain Priority: Secondary Status: Chronic Qualifiers: Back pain location: low back pain Back pain laterality: unspecified Sciatica presence: without sciatica Qualified Code(s): M54.5 - Low back pain; G89.29 - Other chronic pain (6) Alcohol abuse Priority: Secondary Status: Chronic Comments: No signs of withdrawal during this admission (7) Hypothyroidism Priority: Secondary Status: Chronic Comments: TSH checked in April 2016 was normal. Follow-up outpatient. Qualifiers: Hypothyroidism type: unspecified Qualified Code(s): E03.9 - Hypothyroidism , unspecified (8) Anxiety and depression Priority: Secondary Status: Chronic (9) DVT prophylaxis Priority: Primary Status: Acute Comments: IPC's; pharmacologic prophylaxis contraindicated secondary to patient's lengthy history of GI bleeds. (10) PVC (premature ventricular contraction) Priority: Primary Status: Acute Comments: Telemetry with sinus rhythm and occasional PVCs. He has an appointment with his hospitality ambassador later today. (11) Prolonged Q-T interval on ECG Priority: Primary Status: Acute (12) Chronic respiratory failure Priority: Secondary Status: Chronic Comments: On 2 L per nasal cannula as needed at home. Was on room air during this admission. Qualifiers: Respiratory failure complication: unspecified whether with hypoxia or hypercapnia Qualified Code(s): J96.10 - Chronic respiratory failure, unspecified whether with hypoxia or hypercapnia - Discharge Medications Prescriptions: Doxycycline 100 mg PO BID #14 capsule Home Medications: Albuterol Neb [Proventil Neb] 2.5 mg IH Q4HR PRN 04/09/16 [History] Benzoyl Peroxide [Foaming Acne Face Wash] 1 appl TP DAILY 04/09/16 [History] Budesonide/Formoterol 160/4.5 [Symbicort 160/4.5] 2 puff IH BIDR PRN 04/09/16 [ History] Calcium Carbonate [Calcium] 600 mg PO DAILY 04/09/16 [History] Cholecalciferol (D-3) [Vitamin D] 1,000 unit PO DAILY 04/09/16 [History] Cyanocobalamin (Vitamin B-12) [Vitamin B12] 500 mcg PO DAILY 04/09/16 [History] Escitalopram [Lexapro] 20 mg PO DAILY 04/09/16 [History] Fluticasone Propionate Nasal [Flonase] 1 spray NS DAILY PRN 04/09/16 [History] Gabapentin [Neurontin] 1,200 mg PO HS 04/09/16 [History] Gabapentin [Neurontin] 900 mg PO BID 04/09/16 [History] Guaifenesin [Tab Tussin] 400 mg PO BID PRN 04/09/16 [History] L. Acidophilus/Pectin, [place] [Acidophilus Probiotic Capsule] 1 cap PO DAILY 04/16 [History] Levothyroxine [Synthroid] 25 mcg PO DAILY 04/09/16 [History] Loperamide [Imodium] 2 mg PO Q4HR PRN 04/09/16 [History] Mirtazapine [Remeron] 15 mg PO HS 04/09/16 [History] Morphine Sulfate 30 mg PO BID 04/09/16 [History] Ferrous Sulfate 325 mg PO DAILY@0800 #30 tablet 04/12/16 [Rx] Omeprazole 20 mg PO DAILY #30 tablet. 04/12/16 [Rx] Albuterol Sulfate [Albuterol Inhaler] 2 puff IH Q6HR PRN 11/30/16 [History] Aspirin [Ecotrin] 325 mg PO DAILY 11/30/16 [History] Atorvastatin Calcium [Lipitor] 20 mg PO DAILY 11/30/16 [History] Benzocaine/Menthol Marian [Cepacol Sore Throat Lozenge] 1 lozenge MM Q2H 11/30/16 [ History] Lisinopril [Zestril] 10 mg PO DAILY 11/30/16 [History] Polyethylene Glycol 3350 [Smoothlax] 17 gm PO DAILY 11/30/16 [History] Propranolol [Inderal] 10 mg PO TID 11/30/16 [History] Doxycycline 100 mg PO BID #14 capsule 12/01/16 [Rx] Allergies/Adverse Reactions: Allergies No Known Allergies Allergy (Verified 11/30/16 14:36) Procedures/tests Complete & Pending: Procedures Performed prior 72 hours Category Date Time Status EV echocardiogram Routine Y 12/01/16 17:13 Completed Date of admission: 11/30/16 15:48 Primary care physician: PCP [place] Discharging clinician: Monie Dempsey Anticipated date of discharge: 12/01/16 (has cardio appt today) - Patient Status Disposition: Home, Self-Care Condition: Fair Functional capacity at discharge: independent ambulation Overall status at discharge: patient is back to baseline - Discharge Instructions Follow Up With: [facility] [Primary Care Provider[facility] - 12/09/16 1:30 pm Megan Mercado MD [Partnered Physician] - Additional Instructions: Follow-up with primary care provider as scheduled. Follow-up with hospitality ambassador this afternoon - Diet and Activity Activity: increase activity as tolerated Diet: low fat, low cholesterol, low salt diet Hospital course: Mr. Abel is a 66 year old male past medical history of COPD on 2 L as needed at home, hypertension, hypothyroid, GERD, GI bleeds. Patient presented to emergency department chief complaint of chest pain started on the day of presentation described as pressure in the middle of his chest with occasional stabbing cessation to the right and left shoulders. Patient stating the pain was intermittent and lasted approximately 2 hours. Patient also noted that his heart rate was ranging from 30s to the 90s as he has a home pulse oximeter that he was tracking his heart rate with. He also endorsed lightheadedness and headache. He denies shortness of breath, abdominal pain. ECG in the emergency department revealed sinus rhythm with occasional PVCs, no change from prior EKGs. Patient was admitted to the hospitalist service for further evaluation and management. Patient was diagnosed with pneumonia last week and was started on ciprofloxacin. EKG with prolonged QTC of 451 so he was changed to doxycycline. Repeat chest imaging consistent with inflammatory/infectious pneumonitis. Patient was on room air during this admission and denied shortness of breath above his norm. He also denied chest pain during this admission. Echocardiogram unremarkable with ejection fraction of 60% and mild diastolic dysfunction. Patient euvolemic on examination throughout this admission. Troponins negative 3. ACS ruled out. He was discharged home in stable condition with close outpatient follow-up recommended. Of note, he has an appointment with his hospitality ambassador Dr. Megan Mercado on the afternoon of discharge. ITS Impressions Chest X-Ray 11/30/16 14:44 IMPRESSION: Coarsening of the basilar interstitial markings. The findings are suggestive of an infectious or inflammatory pneumonitis. Changes appear similar to images through the lung bases on CT of the abdomen in April of 2016. D/ / Surinder Tipton MD / Surinder Tipton MD Interpreting Provider: Surinder Tipton MD Echocardiogram impressions: LVEF 60%. Normal LV chamber size, wall thickness and function. Mild left ventricular diastolic dysfunction. Atypical septal motion of unclear etiology. Mild to moderately dilated left atrium. Mildly dilated right ventricle with normal function. Moderate pulmonary hypertension. No significant valvular dysfunction. - Time Spent with Patient Total time spent providing and/or coordinating discharge services: - Constitutional Vitals: Temp Pulse Resp BP Pulse Ox 98.0 F 59 16 127/80 93 12/01/16 10:47 12/01/16 10:47 12/01/16 11:01 12/01/16 10:47 12/01/16 11:01 General appearance: Present: A&O X 3, pleasant, no acute distress, answers questions appropriately - Head Head exam: Present: atraumatic, normocephalic - Eye Eye exam: Present: PERRL, conjuntiva pink, sclera anicteric Pupils: Present: PERRL - Neck Neck exam general surgery: Present: supple, trachea midline. Absent: lymphadenopathy - Respiratory Respiratory exam: Present: decreased breath sounds. Absent: accessory muscle use, rales, respiratory distress, rhonchi, wheezes - Cardiovascular Cardiovascular exam: Present: RRR, +S1, +S2. Absent: diastolic murmur, gallop, rubs, systolic murmur - GI/Abdominal GI/Abdominal exam: Present: normal bowel sounds, soft, no peritoneal signs. Absent: distended, tenderness - Extremities Exam Extremities exam: Present: warm, radial pulses palpable and symetrical. Absent : calf tenderness, cyanotic, pedal edema - Neurological Exam Neurological exam: Present: alert, CN II-XII intact, normal gait, oriented X3, no focal deficits, strengths equal and symetr throughout. Absent: pronater drift, facial droop, speech deficit - Skin Skin exam: Present: dry, intact, normal color, warm
--- NOTE | 2016-12-01 14:23 | Electrocardiograph Report ---
[place] [id number] Test Date: 2016-11-30 Pat Name: Surinder Abel Department: 102 Room: 3B12 Gender: M Extruder: [facility] : 1950 Requested By: Tone Ramon Order Number: [id number] Reading MD: Pa Simon MD Measurements Intervals [place] Rate: 62 P: 41 [place]: 184 QRS: -1 QRSD: 97 T: 6 QT: 446 QTc: 451 Interpretive Statements SINUS RHYTHM WITH OCCASIONAL VENTRICULAR PREMATURE COMPLEXES Electronically Signed On 12-01-2016 14:22:10 EDT by Pa Simon MD
== END 2016-12-01 13:40 | disposition home or self-care (01) ==
LOC: EMEROO 14:36 → 3BNU 14:36
PROVIDERS: ADMIT Hospitalist; ATTEND Nurse Practitioner Family

== ENCOUNTER 2019-01-09 12:58 | Inpatient (IN) ==
--- NOTE | 2019-01-09 13:39 | Emergency Department Note ---
Disposition Clinical Impression: Anemia due to blood loss, acute, Acute GI bleeding Disposition: Admitted As Inpatient Condition: Fair Time of Disposition: 15:32 General Adult HPI - General Chief complaint: ED GI Bleed Stated complaint: possible gi bleed Time Seen by Provider: 01/09/19 13:05 Source: patient, EMS Limitations: no limitations Nursing Notes Reviewed: Yes Vital Signs Reviewed: Yes - History of Present Illness HPI Narrative: 68-year-old male with history of bowel resection, COPD on home oxygen 2.5L who presents the emergency department with complaints of bright red blood per rectum which started this morning at approximately 8 AM. The patient has had 4 episodes of large-volume bright red blood passing in his stool since that time. He initially noted abdominal cramping, weakness and lightheadedness which has since resolved. He denies any straining during bowel movements. He has external hemorrhoids but denies any recent bleeding from this. He denies any blood thinners though he does take aspirin and meloxicam daily. He was also recently placed on prednisone and azithromycin for pneumonia per his PCP. He otherwise denies any recent alcohol use, last drink was approximately one month ago. He denies any hematemesis, vomiting, nausea, abdominal pain at this time, hematuria, headache or falls. Pain Scale: 3 - Related Data Home Medications Medication Instructions Recorded Confirmed Albuterol Neb [Proventil Neb] 2.5 mg IH Q4HR PRN 04/09/16 01/09/19 Budesonide/Formoterol 160/4.5 2 puff IH BIDR 04/09/16 01/09/19 [Symbicort 160/4.5] Fluticasone Propionate Nasal 1 spray NS DAILY PRN 04/09/16 01/09/19 [Flonase] Gabapentin [Neurontin] 1,200 mg PO HS 04/09/16 01/09/19 Gabapentin [Neurontin] 900 mg PO 0900,1500 04/09/16 01/09/19 L. Acidophilus/Pectin, [place] 1 cap PO DAILY 04/09/16 01/09/19 [Acidophilus Probiotic Capsule] Levothyroxine [Synthroid] 25 mcg PO DAILY 04/09/16 01/09/19 Mirtazapine [Remeron] 30 mg PO HS 04/09/16 01/09/19 Albuterol Sulfate [Albuterol 2 puff IH Q6HR PRN 05/02/17 06/11/19 Inhaler] Atorvastatin Calcium [Lipitor] 20 mg PO DAILY 11/30/16 01/09/19 Lisinopril [Zestril] 20 mg PO DAILY 11/30/16 01/09/19 Furosemide [Lasix] 40 mg PO DAILY PRN 09/26/18 01/09/19 Meloxicam [Mobic] 7.5 mg PO BID 09/26/18 01/09/19 Metoprolol Succinate [Toprol Xl] 12.5 mg PO DAILY 09/26/18 01/09/19 Morphine Sulfate SR (12 HR) [MS 1 tab PO Q12HR 09/26/18 01/09/19 Contin] Tiotropium [place] [Spiriva 2 puff IH DAILY 09/26/18 01/09/19 Respimat] guaiFENesin [Guaifenesin] 400 mg PO BID PRN 09/26/18 01/09/19 Ergocalciferol (VITAMIN D2) 50,000 unit PO QWEEK 01/09/19 01/09/19 [Vitamin D2] Escitalopram Oxalate 20 mg PO QAM 01/09/19 01/09/19 Melatonin 3 mg Tablet 6 mg PO HS 01/09/19 01/09/19 Prazosin [Minipress] 5 mg PO DAILY 01/09/19 01/09/19 Prednisone 20 mg PO DAILY 01/09/19 01/09/19 Allergies Allergy/AdvReac Type Severity Reaction Status Date / Time No Known Allergies Allergy Verified 10/06/18 14:00 Review of Systems: ROS per history of present illness, all other systems reviewed and negative or normal.ROS per history of present illness, all other systems reviewed and negative or normal. All systems ED: reviewed and negative except as stated. Review of Systems: As Per HPI Past Medical History - Past Medical History Medical history: Reports: COPD, GERD, GI bleed, hypertension, thyroid disease, other Surgical history: Reports: colectomy, other Psychiatric history: Reports: anxiety, depression - Social History Smoking Status: Never smoker Smokeless Tobacco Status: No Alcohol use: Reports: occasionally Drug use: Reports: none Physical Exam General: Conversant. No apparent distress. Follow commands. Appears stated age. Neck: No JVD. Trachea midline. Neck supple. Eyes: PERRL. No scleral icterus. HENT: Normocephalic and atraumatic. Moist mucus membranes. Telangectasias bilateral cheeks. Cardiovascular: Regular rate and rhythm. Normal S1 and S2. No murmurs appreciated. Normal capillary refill. Extremities well perfused with 2+ distal pulses bilaterally. No edema. Pulmonary: Normal and equal breath sounds bilaterally, anteriorly and posterior ly. No wheezes, rales, or rhonchi. Not in respiratory distress. Speaks in full sentences on 2.5L which is baseline. Abdomen: Soft, nondistended, and tontender. No bruits or masses. No guarding. Patient does have notable external hemorrhoid which does not appear to be actively bleeding. There is maroon colored stool on rectal exam. No palpable rectal mass. Neuro: Alert and oriented x3. No slurred speech. No focal deficits noted. Skin: No rashes noted on visualized skin., Diffuse pallor. Musculoskeletal: No bony abnormalities visualized. Moves all extremities. Psych: Normal mood. Pleasant. Makes appropriate eye contact. - General Limitations: no limitations General appearance: alert, in no apparent distress Course - Reevaluation(s) Reevaluation #1: Patietns blood pressure found to be 80s systolic on multiple readings given hemoglobin drop of 8.9 which is a 3 point drop in three months and now hypotensive, will transfuse. 2U pRBC ordered. Blood bank contacted for uncrossed blood while type and screen are pending. Time: 14:25 Reevaluation #2: PAtient undergoing first transfusion, BP in 90s systolic. Awaiting GI to return call with Dr. Adam's recommendation. Repeat paged. Time: 15:28 - Consultations Consultation #1: Discussed with Mj Livingston who will discuss case with Dr. Adam regarding endoscopy. Time: 14:53 Consultation #2: Discussed case with Mj Livingston and Dr. Adam, GI. At this point they will plan for EGD ~1730. Kept NPO for now. Do not recommend octreotide at this time given no varices on EGD in 2016 and no history of cirrhosis. Time: 15:32 Vital Signs Temperature 99.9 F H 01/09/19 13:01 Pulse Rate 89 01/09/19 13:01 Respiratory Rate 16 01/09/19 13:01 Blood Pressure 110/70 01/09/19 13:01 O2 Sat by Pulse Oximetry 95 01/09/19 13:01 Temperature 98.3 F 01/09/19 17:00 Pulse Rate 72 01/09/19 17:00 Respiratory Rate 16 01/09/19 17:00 Blood Pressure 95/68 01/09/19 17:00 O2 Sat by Pulse Oximetry 87 01/09/19 17:00 Oxygen Delivery Oxygen Delivery Nasal Cannula Medical Decision Making - MDM Narrative Medical decision making narrative: 68-year-old male who presents emergency department for possible GI bleed. The patient has had several instances of lower GI bleed, most recently in 2016 which required several units transfusion without an obvious source of bleed found at that time. On arrival the patient is in no acute distress, no significant tachycardia or hypotension. He is otherwise well-appearing though does appear slightly pale. He does have maroon-colored stool on exam and non-bleeding external hemorrhoid. Laboratory evaluation shows Hemoccult-positive, hemoglobin of 8.9 which is down approximately 3 point drop from 4 months ago at 12. On reassessment the patient was found be hypertensive with systolics in the 80s. Given his hypotension will transfuse with 2 units of uncrossed packed red blood cells. The patient has no abdominal tenderness therefore did not obtain imaging. On evaluation of the patient's home medication he is beta-blockaded therefore do not believe he can mount an appropriate tachycardic response. Patient has no prior history of variceal bleed or evidence of varices on 2016 EGD and has no history of cirrhosis. I discussed the patient's case with on- call cobbler mckay, Dr. Adam who at this point does not recommend octreotide. We have initiated a Protonix bolus and drip. The patient does have the UA and elevation above his baseline therefore do consider him more likely to have an upper GI source of bleeding. Dr. Adam plans to proceed with EGD at approximately 1730 today. We will keep him nothing by mouth until that time. Discussed case with on-call hospitalist Dr. Oliva who agrees with plan for admission and accepts the patient to the inpatient service. Patient agrees with and understands course of treatment plan including plan for admission. All questions answered. - Medical Records Medical records reviewed: Yes I reviewed the patient's medical records. - Lab Data Lab results reviewed: Yes I reviewed the patient's lab results. Result diagrams: 01/09/19 17:33 01/09/19 13:50 Lab Results 01/09/19 01/09/19 01/09/19 Range/Units 13:45 13:50 13:50 WBC 8.8 (4.3-11.1) K/mcL RBC 3.03 L (4.19-5.50) M/mcL Hgb 8.9 L (12.9-16.9) g/dL Hct 30.1 L (37.5-50.1) % MCV 99.3 (83.0-100.0) fL MCH 29.4 (28.0-33.3) pg MCHC 29.6 L (31.6-35.5) g/dL RDW 15.0 H (11.5-14.5) % Plt Count 128 L (140-400) K/mcL MPV 11.3 (9.4-12.4) fL Immature Gran % Test Not Performed Seg Neutrophils % 86.0 % Band Neutrophils % 4.0 (0-4) % Lymphocytes % 2.0 % Monocytes % 8.0 % Eosinophils % Test Not Performed Basophils % Test Not Performed Neutrophils # 7.9 (1.6-8.9) K/mcL Lymphocytes # 0.2 L (0.6-4.6) K/mcL Monocytes # 0.7 (0.0-1.3) K/mcL Eosinophils # Test Not Performed Basophils # Test Not Performed Platelet Estimate Slight Decrease L (Normal) PT (9.4-12.1) Seconds INR Sodium 139 (136-145) mEq/L Potassium 4.4 (3.5-5.1) mEq/L Chloride 105 (98-107) mEq/L Carbon Dioxide 30 H (23-29) mEq/L BUN 36 H (8-23) mg/dL Creatinine 0.85 (0.70-1.30) mg/dL Est GFR ( Amer) > 60 (> 60) Est GFR (Non-Af Amer) > 60 (> 60) BUN/Creatinine Ratio 42 H (6-26) Glucose 219 H (70-105) mg/dL Calculated Osmolality 303 H (280-300) Calcium 7.6 L (8.6-10.3) mg/dL Magnesium 1.9 (1.6-2.6) mg/dL Total Bilirubin 0.3 (0.3-1.0) mg/dL Direct Bilirubin 0.1 (0.0-0.2) mg/dL Indirect Bilirubin 0.2 (0.0-1.2) mg/dL AST 8 L (13-39) Units/L ALT 4 L (7-52) Units/L Alkaline Phosphatase 46 (34-104) Units/L Serum Total Protein 4.6 L (6.4-8.9) g/dL Albumin 2.5 L (3.5-5.7) g/dL Globulin 2.1 L (2.4-3.5) g/dL Albumin/Globulin Ratio 1.2 (1.1-2.2) Stool Occult Bld Scrn Positive A (Negative) Blood Type Antibody Screen Crossmatch 01/09/19 01/09/19 Range/Units 13:50 13:50 WBC (4.3-11.1) K/mcL RBC (4.19-5.50) M/mcL Hgb (12.9-16.9) g/dL Hct (37.5-50.1) % MCV (83.0-100.0) fL MCH (28.0-33.3) pg MCHC (31.6-35.5) g/dL RDW (11.5-14.5) % Plt Count (140-400) K/mcL MPV (9.4-12.4) fL Immature Gran % Seg Neutrophils % % Band Neutrophils % (0-4) % Lymphocytes % % Monocytes % % Eosinophils % Basophils % Neutrophils # (1.6-8.9) K/mcL Lymphocytes # (0.6-4.6) K/mcL Monocytes # (0.0-1.3) K/mcL Eosinophils # Basophils # Platelet Estimate (Normal) PT 12.2 H (9.4-12.1) Seconds INR 1.1 Sodium (136-145) mEq/L Potassium (3.5-5.1) mEq/L Chloride (98-107) mEq/L Carbon Dioxide (23-29) mEq/L BUN (8-23) mg/dL Creatinine (0.70-1.30) mg/dL Est GFR ( Amer) (> 60) Est GFR (Non-Af Amer) (> 60) BUN/Creatinine Ratio (6-26) Glucose (70-105) mg/dL Calculated Osmolality (280-300) Calcium (8.6-10.3) mg/dL Magnesium (1.6-2.6) mg/dL Total Bilirubin (0.3-1.0) mg/dL Direct Bilirubin (0.0-0.2) mg/dL Indirect Bilirubin (0.0-1.2) mg/dL AST (13-39) Units/L ALT (7-52) Units/L Alkaline Phosphatase (34-104) Units/L Serum Total Protein (6.4-8.9) g/dL Albumin (3.5-5.7) g/dL Globulin (2.4-3.5) g/dL Albumin/Globulin Ratio (1.1-2.2) Stool Occult Bld Scrn (Negative) Blood Type A POSITIVE Antibody Screen NEGATIVE Crossmatch See Detail - Radiology Data Radiology results reviewed: Yes I reviewed the patient's radiology results. Chest X-Ray 01/09/19 13:28 IMPRESSION: Stable chest. Coarsening of the interstitial markings, likely chronic. Nodule at the right base, likely a nipple shadow. Consider follow-up chest with nipple markers. D/ / Surinder Tipton MD / Surinder Tipton MD Interpreting Provider: Surinder Tipton MD - EKG Data EKG #1 EKG attestation: Yes I reviewed and interpreted this EKG. EKG results narrative: Normal sinus rhythm rate of 79. Normal axis. No acute ischemic ST or T wave changes. Normal intervals. Compared with prior from 09/25/18 there are no significant changes. Attestation Statement - Attestation Attestation: Resident Attestation: I examined this patient and my medical decision making was reviewed with the Resident Physician. I agree with the documented findings, disposition and treatment plan as described except to the extent set forth below. We independently had [id number] contact with the patient.EKG reviewed with resident physician. Agree with documentation. Patient presenting to the emergency department for evaluation of bright red bloo d per rectum. Started earlier in the day. Patient has had 4 episodes. Patient has associated weakness and fatigue. Currently undergoing treatment for pneumonia. Patient is on steroids as well as takes aspirin at home for headaches and is also taking ibuprofen. Patient did become hypotensive with in the emergency department. Blood has been transfused. Patient has 2 large IVs area GI was called and the patient will be admitted for further management. Resting in bed comfortably, generalized weakness, regular rhythm, abdomen soft nontender to palpation without guarding or rebound.
[2019-01-09 14:11] LABS: Hematocrit 30.1 % (37.5-50.1); Hemoglobin 8.9 g/dL (12.9-16.9); Mean Corpuscular HGB Conc 29.6 g/dL (31.6-35.5); Mean Corpuscular Hemoglobin 29.4 pg (28.0-33.3); Mean Corpuscular Volume 99.3 fL (83.0-100.0); Mean Platelet Volume 11.3 fL (9.4-12.4); Monocytes # 0.7 K/mcL (0.0-1.3); Platelet Count 128 K/mcL (140-400); Red Blood Count 3.03 M/mcL (4.19-5.50); White Blood Count 8.8 K/mcL (4.3-11.1)
[2019-01-09 14:21] LABS: INR 1.1; Prothrombin Time 12.2 Seconds (9.4-12.1)
[2019-01-09] MEDS ORDERED: Pantoprazole 40 MG VIAL IVP ONE (14:24)
[2019-01-09 14:27] LABS: Alanine Aminotransferase 4 Units/L (7-52); Albumin 2.5 g/dL (3.5-5.7); Albumin/Globulin Ratio 1.2 (1.1-2.2); Alkaline Phosphatase 46 Units/L (34-104); Aspartate Amino Transferase 8 Units/L (13-39); BUN/Creatinine Ratio 42 (6-26); Bilirubin,Direct 0.1 mg/dL (0.0-0.2); Bilirubin,Indirect 0.2 mg/dL (0.0-1.2); Bilirubin,Total 0.3 mg/dL (0.3-1.0); Blood Urea Nitrogen 36 mg/dL (8-23); Calcium 7.6 mg/dL (8.6-10.3); Carbon Dioxide 30 mEq/L (23-29); Chloride 105 mEq/L (98-107); Globulin 2.1 g/dL (2.4-3.5); Glucose 219 mg/dL (70-105); Lymphocytes # 0.2 K/mcL (0.6-4.6); Magnesium 1.9 mg/dL (1.6-2.6); Neutrophils # 7.9 K/mcL (1.6-8.9); Osmolality,Calculated 303 (280-300); Platelet Estimate Slight Decrease (Normal); Potassium 4.4 mEq/L (3.5-5.1); Sodium 139 mEq/L (136-145); Total Protein 4.6 g/dL (6.4-8.9); eGFR For African Americans > 60 (> 60); eGFR For Non-African Americans > 60 (> 60)
[2019-01-09] MEDS ORDERED: Pantoprazole 40 MG in 0.9 % Sodium Chloride Mini Bag 100 ML IVC SCH (14:30)
[2019-01-09] MEDS ORDERED: 0.9 % Sodium Chloride 250 ML ONE (14:44)
[2019-01-09] MEDS ORDERED: Naloxone 0.4 MG/ML INJ IVP PRN (16:56)
[2019-01-09] MEDS ORDERED: Ondansetron 4 MG/2 ML VIAL IVP PRN (16:56)
--- NOTE | 2019-01-09 16:56 | Internal Med History&Physical ---
Date of Encounter: 01/09/19 Time of Encounter: 16:56 Internal Medicine - H&P: HPI Chief complaint: GI bleed Admitted From: Emergency Dept Plans for Post Hospital Care: Home History of present illness: Mr. Abel is a 68 year old male with history of GI bleed in the past is status post bowel resection few years ago with last GI bleed 20 17(multiple episode of GI bleed almost 3 times in the past), last GI endoscope in 2016 with no varices or cirrhosis, COPD on 2.5 L home oxygen came to emergency room with complaint of bright red blood per rectum a started this morning. He had 4-5 episodes of large-volume bright red blood in the stool associated with dizziness, lightheadedness and shortness of breath. He also initially noted abdominal cramps especially right side but resolved eventually. Patient takes aspirin and meloxicam daily for chronic low back pain but not prescribed by any physician. He also got treated for pneumonia almost 10-14 days ago at [facility] and completed course of antibiotic but is still on tapering prednisone. In ER his blood pressure was found to be low but no active bleeding witnessed. Hemoglobin 8.9 with Hemoccult positive. 1 L IV fluid resuscitation was done by EMS and PRC transfusion is started in the ER. ER physician also consulted GI specialist who is planning for endoscopy possibly later today. Your physician called on-call hospitalists for the admission with diagnosis of GI bleed. Patient is nothing by mouth. Patient denies fever but had intermittent chills, chest pain headache urinary complaint. He does complain of fatigue generalized weakness lightheadedness with some shortness of breath. He also denies hemoptysis immaturity a hematemesis. Abdominal pain no complaint of abdominal pain at this time Past Med Surg Social Fam HX - Past Medical History Medical history: COPD, GERD, GI bleed, hypertension, thyroid disease, other Additional medical history: Skin cancer on the face Psychiatric history: anxiety, depression - Past Surgical History Surgical History: colectomy, other Additional surgical history: laminectomy, Right foot surgery, Left wrist surgery - Social History Smoking Status: Never smoker Smokeless Tobacco Status: No Alcohol use: occasionally Drug use: none - Family History Mother Living Status: Hx Family Cardiac Disorders: Yes Hx Family Respiratory Disorders: No Hx Family Cancer: Yes (Lymphoma) Hx Family GI Disorders: Yes (Ulcers) Hx Family Endocrine Disorder: No Hx Family Neuromuscular Disorders: No Hx Family Neurologic Disorders: No Hx Family HEENT Disorders: No Hx Family Autoimmune Disorders: No Father Living Status: Hx Family Cancer: Yes Internal Medicine - H&P: Meds Albuterol Neb [Proventil Neb] 2.5 mg IH Q4HR PRN 04/09/16 [History] Budesonide/Formoterol 160/4.5 [Symbicort 160/4.5] 2 puff IH BIDR 04/09/16 [History] Fluticasone Propionate Nasal [Flonase] 1 spray NS DAILY PRN 04/09/16 [History] Gabapentin [Neurontin] 1,200 mg PO HS 04/09/16 [History] Gabapentin [Neurontin] 900 mg PO 0900,1500 04/09/16 [History] L. Acidophilus/Pectin, [place] [Acidophilus Probiotic Capsule] 1 cap PO DAILY 04/09/16 [History] Levothyroxine [Synthroid] 25 mcg PO DAILY 04/09/16 [History] Mirtazapine [Remeron] 30 mg PO HS 04/09/16 [History] Albuterol Sulfate [Albuterol Inhaler] 2 puff IH Q6HR PRN 11/30/16 [History] Atorvastatin Calcium [Lipitor] 20 mg PO DAILY 11/30/16 [History] Lisinopril [Zestril] 20 mg PO DAILY 11/30/16 [History] Furosemide [Lasix] 40 mg PO DAILY PRN 09/26/18 [History] Meloxicam [Mobic] 7.5 mg PO BID 09/26/18 [History] Metoprolol Succinate [Toprol Xl] 12.5 mg PO DAILY 09/26/18 [History] Morphine Sulfate SR (12 HR) [MS Contin] 1 tab PO Q12HR 09/26/18 [History] Tiotropium [place] [Spiriva Respimat] 2 puff IH DAILY 09/26/18 [History] guaiFENesin [Guaifenesin] 400 mg PO BID PRN 09/26/18 [History] Ergocalciferol (VITAMIN D2) [Vitamin D2] 50,000 unit PO QWEEK 01/09/19 [History] Escitalopram Oxalate 20 mg PO QAM 01/09/19 [History] Melatonin 3 mg Tablet 6 mg PO HS 01/09/19 [History] Prazosin [Minipress] 5 mg PO DAILY 01/09/19 [History] Prednisone 20 mg PO DAILY 01/09/19 [History] Allergy/AdvReac Type Severity Reaction Status Date / Time No Known Allergies Allergy Verified 10/06/18 14:00 All Systems PM: A 10-system review of systems was performed and is negative for pertinent findings except as documented above in the HPI. - Constitutional Vitals: Temp Pulse Resp BP Pulse Ox 98.5 F 74 18 98/66 95 01/09/19 15:21 01/09/19 16:04 01/09/19 16:04 01/09/19 16:04 01/09/19 16:04 Exam: General appearance: No acute distress, A&O X 3. Family at bedside. Appear pale and tired Head exam: Atraumatic Eye exam: EOMI, PERRLA. Pallor conjunctiva ENT exam: Moist oral mucosa Neck nontender, supple Respiratory exam: Rales bilaterally more on the left side-possibly chronic. No wheezing Cardiovascular exam: Regular rate and rhythm, no systolic murmur Abdominal exam: Soft, nontender, nondistended, positive bowel sounds Extremities exam: No calf tenderness, no pedal edema Present: Skin-no rash, warm, dry, intact Neurological exam: Alert, awake, oriented 3, CN II-XII intact, no focal deficits. No facial droop. Normal speech. Internal Med - H&P Results - Labs CBC & Chem 7: 01/09/19 13:50 01/09/19 13:50 Labs: Short CBC 01/09/19 Range/Units 13:50 WBC 8.8 (4.3-11.1) K/mcL Hgb 8.9 L (12.9-16.9) g/dL Hct 30.1 L (37.5-50.1) % Plt Count 128 L (140-400) K/mcL Neutrophils # 7.9 (1.6-8.9) K/mcL BMP 01/09/19 13:50 Sodium 139 Potassium 4.4 Chloride 105 Carbon Dioxide 30 H BUN 36 H Creatinine 0.85 Glucose 219 H Calcium 7.6 L Liver Function 01/09/19 Range/Units 13:50 Total Bilirubin 0.3 (0.3-1.0) mg/dL Direct Bilirubin 0.1 (0.0-0.2) mg/dL AST 8 L (13-39) Units/L ALT 4 L (7-52) Units/L Alkaline Phosphatase 46 (34-104) Units/L Albumin 2.5 L (3.5-5.7) g/dL - Impressions ITS Impressions Chest X-Ray 01/09/19 13:28 IMPRESSION: Stable chest. Coarsening of the interstitial markings, likely chronic. Nodule at the right base, likely a nipple shadow. Consider follow-up chest with nipple markers. D/ / Surinder Tipton MD / Surinder Tipton MD Interpreting Provider: Surinder Tipton MD - Assessment and Plan (1) Acute GI bleeding Current Visit: Yes Status: Acute Assessment and plan: History of recurrent GI bleed in the past. Is status post bowel resection but no further details available. Patient has symptomatic anemia. Stool occult positive. PRC transfusion is started in the ER. Keep patient nothing by mouth, IV fluid normal saline 100 mL per hour, PRC transfusion, PPI drip. Surgery GI and plan for endoscopic possibly later today. Serial hemoglobin. SCD for DVT prophylaxis (2) Anemia due to blood loss, acute Current Visit: Yes Status: Acute Assessment and plan: as mentioned above. Hemoglobin 8.9 on admission. Noticed 3-point drop in hemoglobin compared to last 3 month. (3) Anxiety and depression Current Visit: No Status: Chronic Assessment and plan: Stable. Continue home medicine (4) Chronic back pain Current Visit: No Status: Chronic Assessment and plan: Stable. Continue home medicine Qualifiers: Back pain location: low back pain Back pain laterality: unspecified Sciatica presence: without sciatica Qualified Code(s): M54.5 - Low back pain; G89.29 - Other chronic pain (5) Chronic diastolic heart failure Current Visit: No Status: Chronic Assessment and plan: Stable and does not appear in volume overloaded. Lasix on hold for now. Echo done in November 2016 Impressions: LVEF 60%. Normal LV chamber size, wall thickness and function. Mild left ventricular diastolic dysfunction. Atypical septal motion of unclear etiology. Mild to moderately dilated left atrium. Mildly dilated right ventricle with normal function. Moderate pulmonary hypertension. No significant valvular dysfunction. Left Ventricular Wall Motion: Rest Echo Findings All wall segments showed normal motion. (6) Hypertension Current Visit: No Status: Chronic Assessment and plan: Low blood pressure at this time. Blood pressure medicine on hold Qualifiers: Hypertension type: unspecified Qualified Code(s): I10 - Essential (primary) hypertension (7) Hypothyroidism Current Visit: No Status: Chronic Assessment and plan: Continue home medicine Qualifiers: Hypothyroidism type: unspecified Qualified Code(s): E03.9 - Hypothyroidism, unspecified (8) DVT prophylaxis Current Visit: No Status: Acute Assessment and plan: SCDs - Time Spent With Patient Total time spent is greater than 50% in coordination of care (as documented) at patient's floor/unit and/or counseling patient:
[2019-01-09] MEDS ORDERED: Albuterol 2.5 MG/3 ML NEBULIZER IH PRN (17:04)
[2019-01-09] MEDS ORDERED: Fluticasone Propionate Nasal 50 MCG/SPRAY BOTTLE NS PRN (17:04)
[2019-01-09] MEDS ORDERED: D5% in Water 1,000 ML IVC PRN (17:26)
[2019-01-09] MEDS ORDERED: Dextrose Gel 15 GM/37.5 ML TUBE PO PRN ×2 (17:26)
[2019-01-09] MEDS ORDERED: *HR* Dextrose 50 % in Water (Syg) 50 ML SYRINGE IVP PRN (17:26)
[2019-01-09 17:47] LABS: Hematocrit 34.7 % (37.5-50.1)
[2019-01-09 17:52] LABS: Hemoglobin 10.6 g/dL (12.9-16.9)
[2019-01-09] MEDS ORDERED: 0.9 % Sodium Chloride 500 ML ONE (17:59)
[2019-01-09] MEDS: Morphine Sulfate ER (12 HR) 15 MG TABLET.ER PO SCH (18:09)
[2019-01-09] MEDS: Cholecalciferol (D-3) 1,000 UNIT TABLET PO SCH (18:09)
[2019-01-09] MEDS: Insulin LISPRO 300 UNITS/3 ML VIAL SQ SCH (18:20)
[2019-01-09 18:21] LABS: Estimated Average Glucose 146 mg/dl
[2019-01-09] MEDS: 0.9 % Sodium Chloride 1,000 ML IVC SCH (18:24)
--- NOTE | 2019-01-09 18:24 | Event Note ---
Date of Encounter: 01/09/19 Time of Encounter: 18:00 Patient seen. Patient with a history of recurrent lower GI bleed first time in 2005. Had a hemicolectomy done and then repeat bleeding 2015 and . Previous workup have been negative including multiple scopes and capsule endoscopies. Bleeding this time started around 8 am the last bloody bowel movement was ~ 12 pm. per patient is not bleeding anymore and is feeling hungry and wants to eat. Rec: Patient to gets 2nd blood hemodynamically stable and asymptomatic. If he starts bleeding again will need bleeding scan stat. We will tentatively prep him for possible scopes tomorrow
[2019-01-09] MEDS: Budesonide/Formoterol 160/4.5 1 PUFF INH IH SCH (19:59)
[2019-01-09] MEDS: Pantoprazole 40 MG in 0.9 % Sodium Chloride Mini Bag 100 ML IVC SCH ×2 (20:02→22:32)
[2019-01-09] MEDS ORDERED: Acetaminophen IV 1,000 MG/100 ML INFUS..BTL IVPB ONE (20:08)
[2019-01-09 23:26] LABS: Hematocrit 38.2 % (37.5-50.1); Hemoglobin 11.9 g/dL (12.9-16.9)
[2019-01-10] MEDS: Insulin LISPRO 300 UNITS/3 ML VIAL SQ SCH ×4 (00:52→18:02)
[2019-01-10] MEDS: Pantoprazole 40 MG in 0.9 % Sodium Chloride Mini Bag 100 ML IVC SCH ×5 (00:53→23:46)
[2019-01-10] MEDS: 0.9 % Sodium Chloride 1,000 ML IVC SCH ×2 (04:50→14:28)
[2019-01-10] MEDS: Morphine Sulfate ER (12 HR) 15 MG TABLET.ER PO SCH ×2 (05:59→18:02)
[2019-01-10] MEDS: Levothyroxine 25 MCG TABLET PO SCH (05:59)
[2019-01-10] MEDS ORDERED: 0.9 % Sodium Chloride 1,000 ML IVC SCH (06:55)
[2019-01-10] MEDS: (Tiotropium Bromide [Spiriva Respimat] 2 PUFF) IH SCH (08:12)
[2019-01-10] MEDS: Lactobacillus 1 EACH CAP.SPRINK PO SCH (08:34)
[2019-01-10] MEDS: Cholecalciferol (D-3) 1,000 UNIT TABLET PO SCH (08:34)
[2019-01-10 08:55] LABS: Basophils % 0.1 %; Eosinophils # 0.1 K/mcL (0.0-0.6); Eosinophils % 1.8 %; Hematocrit 34.7 % (37.5-50.1); Hemoglobin 10.8 g/dL (12.9-16.9); Immature Granulocytes % 0.4 % (0-4); Lymphocytes # 0.8 K/mcL (0.6-4.6); Lymphocytes % 10.1 %; Mean Corpuscular HGB Conc 31.1 g/dL (31.6-35.5); Mean Corpuscular Hemoglobin 29.2 pg (28.0-33.3); Mean Corpuscular Volume 93.8 fL (83.0-100.0); Mean Platelet Volume 10.9 fL (9.4-12.4); Monocytes # 0.8 K/mcL (0.0-1.3); Monocytes % 10.5 %; Neutrophils # 5.7 K/mcL (1.6-8.9); Platelet Count 122 K/mcL (140-400); Red Cell Distribution Width 16.2 % (11.5-14.5); Segmented Neutrophils % 77.1 %; White Blood Count 7.4 K/mcL (4.3-11.1)
[2019-01-10 09:15] LABS: BUN/Creatinine Ratio 42 (6-26); Blood Urea Nitrogen 28 mg/dL (8-23); Calcium 7.7 mg/dL (8.6-10.3); Carbon Dioxide 29 mEq/L (23-29); Chloride 105 mEq/L (98-107); Glucose 103 mg/dL (70-105); Osmolality,Calculated 292 (280-300); Potassium 3.5 mEq/L (3.5-5.1); Sodium 138 mEq/L (136-145); eGFR For African Americans > 60 (> 60); eGFR For Non-African Americans > 60 (> 60)
[2019-01-10] MEDS: Acetaminophen 325 MG TABLET PO PRN ×2 (09:47→19:35)
[2019-01-10] MEDS: Budesonide/Formoterol 160/4.5 1 PUFF INH IH SCH ×2 (11:20→20:12)
--- NOTE | 2019-01-10 12:56 | Gastroenterology Consult Note ---
Date of Encounter: 01/10/19 Time of Encounter: 10:50 - Assessment and plan (1) GI bleed Current Visit: No Status: Acute Assessment and plan: Pt with several large volume BRBPR. Hgb 8.9 on admission and 11.9 today. Received 2 units PRBC. No further bleeding noted. Plan for EGD and colonoscopy tomorrow. Clear liquid diet today, no red or purple. NPO at midnight. If unable tolerate NuLytely please use MiraLAX prep. If not clear by 6 AM, give 2 tap water enemas. Qualifiers: GI bleed type/associated pathology: unspecified gastrointestinal hemorrhage type Qualified Code(s): K92.2 - Gastrointestinal hemorrhage, unspecified - Time Spent With Patient Total time spent is greater than 50% in coordination of care (as documented) at patient's floor/unit and/or counseling patient: GI History of Present Illness - Data of Consult Patient: new to practice Consult date: 01/10/19 Requesting Physician: Celsa Oliva - Consult Narrative Reason for consult: GI bleed History of present illness: Mr. Abel is a 68 year old male with PMHx of COPD, GERD, GI bleed, HTN, s/p sigmoid resection (12/20/2006 Dr. Ybarra) who presented with several episodes of large volume bright red blood per rectum with associated SOB and fatigue. He denies abdominal pain. On admission Hgb 8.9 and today Hgb 11.9 after 2 units PRBC. He denies nausea, vomiting, coffee-ground emesis, or hematemesis. Procedures: Colonoscopy 04/19/2016 Dr. Hinojosa: Hematin in the the entire colon, internal hemorrhoids. EGD 04/09/2016 Dr. Hinojosa: Normal. Colonoscopy 06/18/2008 Dr. Collado: Minimal patchy inflammation. EGD 01/29/2004 Dr. Collado: Gastric ulcer, mild chronic inflammation. EGD 03/27/2004 Dr. Collado: Gastritis, healing gastric ulcer. NSAIDs: Mobic Anticoagulation: None Past Med Surg Social Fam HX - Past Medical History Medical history: COPD, GERD, GI bleed, hypertension, thyroid disease, other Additional medical history: Skin cancer on the face Psychiatric history: anxiety, depression - Past Surgical History Surgical History: colectomy, other Additional surgical history: laminectomy, Right foot surgery, Left wrist surgery - Social History Smoking Status: Never smoker Smokeless Tobacco Status: No Alcohol use: occasionally Drug use: none - Family History Mother Living Status: Hx Family Cardiac Disorders: Yes Hx Family Respiratory Disorders: No Hx Family Cancer: Yes (Lymphoma) Hx Family GI Disorders: Yes (Ulcers) Hx Family Endocrine Disorder: No Hx Family Neuromuscular Disorders: No Hx Family Neurologic Disorders: No Hx Family HEENT Disorders: No Hx Family Autoimmune Disorders: No Father Living Status: Hx Family Cancer: Yes - Gastrointestinal Gastrointestinal: Present: as per HPI - Constitutional Constitutional: as per HPI - EENT Eyes: as per HPI Ears: Present: as per HPI Nose, mouth and throat: Present: as per HPI - Cardiovascular Cardiovascular ROS: Present: as per HPI - Respiratory Respiratory IM: Present: as per HPI - Genitourinary Genitourinary: Absent: change in color, Urinary frequency - Neurological ROS Neurological GI: Present: as per HPI - Hematologic/Lymphatic Hematologic/Lymphatic pediatric: Present: as per HPI - Musculoskeletal Musculoskeletal ROS GI: Present: as per HPI - Integumentary Integumentary GI: Present: as per HPI - Psychiatric ROS Psychiatric GI: Present: as per HPI - Endocrine Endocrine IM: Present: as per HPI - Constitutional Vitals: Temp Pulse Resp BP Pulse Ox 99.1 F 97 18 76/51 88 01/10/19 11:41 01/10/19 11:41 01/10/19 11:41 01/10/19 11:41 01/10/19 11:41 General appearance: Present: cooperative, A&O X 3, no acute distress, answers questions appropriately - Head Head exam: Present: atraumatic, normocephalic - Eye Eye exam: Present: normal appearance, sclera anicteric - ENT ENT exam: Present: mucous membranes dry - Neck Neck exam general surgery: Present: normal inspection, trachea midline - Respiratory Respiratory exam: Present: CTAB. Absent: rales, rhonchi - Cardiovascular Cardiovascular exam: Present: RRR, +S1, +S2 - GI/Abdominal GI/Abdominal exam: Present: soft, no peritoneal signs. Absent: distended, firm, guarding, tenderness - Rectal Rectal exam: Present: deferred - Extremities Exam Extremities exam: Present: warm - Neurological Exam Neurological exam: Present: no focal deficits - Psychiatric Psychiatric exam: Present: normal affect, normal mood - Skin Skin exam: Present: dry, intact, normal color, warm Results - Labs CBC & Chem 7: 01/10/19 08:42 01/10/19 08:42 Labs: Last Result 01/10/19 08:42 Calcium 7.7 L Entire Visit 01/10/19 08:42 Hgb 10.8 L Hct 34.7 L - ABG ABG results: PT/INR, D-dimer PT 12.2 Seconds (9.4-12.1) H 01/09/19 13:50 - Impressions Impressions Chest X-Ray 01/09/19 13:28 IMPRESSION: Stable chest. Coarsening of the interstitial markings, likely chronic. Nodule at the right base, likely a nipple shadow. Consider follow-up chest with nipple markers. D/ / Surinder Tipton MD / Surinder Tipton MD Interpreting Provider: Surinder Tipton MD Consult Discharge Plan - Plan [facility]errals: [facility] [Primary Care Provider] - 01/18/19 3:00 pm Cuate Adam MD [Partnered Physician] - (sent web request on 01-10-19 @ [id number])
[2019-01-10] MEDS ORDERED: Propofol 500 MG/50 ML INFUS..BTL ONE (13:35)
[2019-01-10] MEDS ORDERED: *HR* Propofol 200 MG/20 ML VIAL IVP ONE (14:03)
[2019-01-10 14:13] LABS: Hematocrit 30.2 % (37.5-50.1); Hemoglobin 9.6 g/dL (12.9-16.9)
--- NOTE | 2019-01-10 14:35 | Anesthesia Evaluation PreOp ---
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 Acidophilus/Pectin, Barber [Acidophilus Probiotic Capsule] 1 cap PO DAILY 04/09/16 [History] Levothyroxine [Synthroid] 25 mcg PO DAILY 04/09/16 [History] Mirtazapine [Remeron] 30 mg PO HS 04/09/16 [History] Albuterol Sulfate [Albuterol Inhaler] 2 puff IH Q6HR PRN 11/30/16 [History] Atorvastatin Calcium [Lipitor] 20 mg PO DAILY 11/30/16 [History] Lisinopril [Zestril] 20 mg PO DAILY 11/30/16 [History] Furosemide [Lasix] 40 mg PO DAILY PRN 09/26/18 [History] Meloxicam [Mobic] 7.5 mg PO BID 09/26/18 [History] Metoprolol Succinate [Toprol Xl] 12.5 mg PO DAILY 09/26/18 [History] Morphine Sulfate SR (12 HR) [MS Contin] 1 tab PO Q12HR 09/26/18 [History] Tiotropium Danielson [Spiriva Respimat] 2 puff IH DAILY 09/26/18 [History] guaiFENesin [Guaifenesin] 400 mg PO BID PRN 09/26/18 [History] Ergocalciferol (VITAMIN D2) [Vitamin D2] 50,000 unit PO QWEEK 01/09/19 [History] Escitalopram Oxalate 20 mg PO QAM 01/09/19 [History] Melatonin 3 mg Tablet 6 mg PO HS 01/09/19 [History] Prazosin [Minipress] 5 mg PO DAILY 01/09/19 [History] Prednisone 20 mg PO DAILY 01/09/19 [History] Allergy/AdvReac Type Severity Reaction Status Date / Time No Known Allergies Allergy Verified 10/06/18 14:00 - Meds/Allergy Pre-op Review Medications Reviewed: Yes Allergies Reviewed: Yes Beta Blockers on Current Med List: No Anesthesia Results - Labs 01/10/19 13:44 01/10/19 08:42 Laboratory Tests 09/25/18 01/09/19 01/10/19 17:52 13:50 13:44 Hgb 9.6 L Hct 30.2 L PT 12.2 H D-Dimer 795 H Anesthesia Exam Selected Entries 01/10/19 14:20 Temperature 98.5 F Pulse Rate 99 Respiratory Rate 16 Blood Pressure 102/69 O2 Sat by Pulse Oximetry 92 - HEENT Pupil (Motor): EOMI Mallampati: III Teeth: Poor dentition Oral Opening: Greater than 3 - POWDER COAT PAINTER LOC: Oriented POWDER COAT PAINTER Motor: Normal RUE, Normal LUE, Normal RLE, Normal LLE, Normal Face POWDER COAT PAINTER Sensory: Normal: RUE, LUE, RLE, LLE, Face - Cardiac Rhythm: Regular Murmur: None - Pulmonary Breath Sounds: bilateral Clear Respiratory Effort: Symmetrical Anesthesia Assess/Plan ASA Score: 3 Level of consciousness: Cooperative, Oriented, Tranquil Anesthetic Plan: MAC Monitoring Plan: Standard Monitors Recovery Plan: Other (agrees to GA)
--- NOTE | 2019-01-10 16:50 | Internal Med Progress Note ---
Hospitalist Progress Note - Encounter Date of Encounter: 01/10/19 Time of Encounter: 13:47 - Subjective Interval History: Patient had [address] sherwoodry stool overnight. Denies hematemesis hematochezia or hemoptysis. Family at bedside. Reviewed lab in vitals. Patient complained of fatigue generalized weakness but denies fever chills nausea vomiting headache dizziness chest pain shortness of breath abdominal pain urinary complaint - Exam Vitals: Temp Pulse Resp BP Pulse Ox 98.4 F 74 18 126/77 91 01/10/19 16:22 01/10/19 16:22 01/10/19 16:22 01/10/19 16:22 01/10/19 16:22 Exam: General appearance: No acute distress, A&O X 3. Family at bedside. Eye exam: EOMI, PERRLA. Pallor conjunctiva ENT exam: Moist oral mucosa Neck nontender, supple Respiratory exam: Decreased breath sounds at base with a few rales-? Chronic. No wheezing or crepitation Cardiovascular exam: Regular rate and rhythm, no systolic murmur Abdominal exam: Soft, nontender, nondistended, positive bowel sounds Extremities exam: No calf tenderness, no pedal edema Present: Skin-no rash, warm, dry, intact Neurological exam: Alert, awake, oriented 3, CN II-XII intact, no focal deficits. No facial droop. Normal speech. - Assessment and Plan (1) Acute GI bleeding Current Visit: Yes Status: Acute Assessment and Plan: History of recurrent GI bleed in the past. Is status post hernan-colectomy and then repeat bleeding 2015 and . had multiple scope and Endoscopically with No Significant Finding. Patient has symptomatic anemia. Stool occult positive. Hemoglobin is stable after 2 unit blood transfusion today. Plan for endoscopy today. Keep patient nothing by mouth, IV fluid normal saline 100 mL per hour, PRC transfusion if needed, PPI drip. Serial hemoglobin. SCD for DVT prophylaxis (2) Anemia due to blood loss, acute Current Visit: Yes Status: Acute Assessment and Plan: as mentioned above. Hemoglobin 8.9 on admission. Noticed 3-point drop in hemoglobin compared to last 3 month. (3) Anxiety and depression Current Visit: No Status: Chronic Assessment and Plan: Stable. Continue home medicine (4) Chronic back pain Current Visit: No Status: Chronic Assessment and Plan: Stable. Continue home medicine (5) Chronic diastolic heart failure Current Visit: No Status: Chronic Assessment and Plan: Stable and does not appear in volume overloaded. Lasix on hold for now. Echo done in November 2016 Impressions: LVEF 60%. Normal LV chamber size, wall thickness and function. Mild left ventricular diastolic dysfunction. Atypical septal motion of unclear etiology. Mild to moderately dilated left atrium. Mildly dilated right ventricle with normal function. Moderate pulmonary hypertension. No significant valvular dysfunction. Left Ventricular Wall Motion: Rest Echo Findings All wall segments showed normal motion. (6) Hypertension Current Visit: No Status: Chronic Assessment and Plan: Low blood pressure on admission therefore Blood pressure medicine was on hold. Pressure blood pressure now. Will stop IV fluid and restart home medicine when appropriate (7) Hypothyroidism Current Visit: No Status: Chronic (8) DVT prophylaxis Current Visit: No Status: Acute Assessment and Plan: SCDs - Time Spent with Patient Total time spent is greater than 50% in coordination of care (as documented) at patient's floor/unit and/or counseling patient: 25 - 35 minutes Plan of Care Discussed with: patient Internal Medicine: Result - Labs CBC & Chem 7: 01/10/19 13:44 01/10/19 08:42 Labs: Short CBC 01/09/19 01/09/19 01/10/19 Range/Units 17:33 22:59 08:42 WBC 7.4 (4.3-11.1) K/mcL Hgb 10.6 L D 11.9 L 10.8 L (12.9-16.9) g/dL Hct 34.7 L 38.2 34.7 L (37.5-50.1) % Plt Count 122 L (140-400) K/mcL Neutrophils # 5.7 (1.6-8.9) K/mcL 01/10/19 Range/Units 13:44 WBC (4.3-11.1) K/mcL Hgb 9.6 L (12.9-16.9) g/dL Hct 30.2 L (37.5-50.1) % Plt Count (140-400) K/mcL Neutrophils # (1.6-8.9) K/mcL BMP 01/10/19 08:42 Sodium 138 Potassium 3.5 Chloride 105 Carbon Dioxide 29 BUN 28 H Creatinine 0.67 L Glucose 103 Calcium 7.7 L - ABG Interpretation ABG results: PT/INR, D-dimer PT 12.2 Seconds (9.4-12.1) H 01/09/19 13:50 Consult Discharge Plan - Plan Referrals: [facility],PCP [Primary Care Provider] - 01/18/19 3:00 pm Cuate Adam MD [Partnered Physician] - (sent web request on 01-10-19 @ [id number]) (4) Chronic back pain Qualifiers: Back pain location: low back pain Back pain laterality: unspecified Sciatica presence: without sciatica Qualified Code(s): M54.5 - Low back pain; G89.29 - Other chronic pain (6) Hypertension Qualifiers: Hypertension type: unspecified Qualified Code(s): I10 - Essential (primary) hypertension (7) Hypothyroidism Qualifiers: Hypothyroidism type: unspecified Qualified Code(s): E03.9 - Hypothyroidism, unspecified
[2019-01-10] MEDS ORDERED: SODIUM CHLORIDE/NAHCO3/KCL/PEG 4,000 ML SOLN.RECON PO ONE (17:00)
[2019-01-11] MEDS: Insulin LISPRO 300 UNITS/3 ML VIAL SQ SCH ×4 (00:23→17:52)
[2019-01-11] MEDS: 0.9 % Sodium Chloride 1,000 ML IVC SCH (03:49)
[2019-01-11] MEDS: Pantoprazole 40 MG in 0.9 % Sodium Chloride Mini Bag 100 ML IVC SCH ×3 (05:01→15:30)
[2019-01-11 05:06] LABS: Basophils % 0.1 %; Eosinophils # 0.1 K/mcL (0.0-0.6); Eosinophils % 1.1 %; Hematocrit 30.3 % (37.5-50.1); Hemoglobin 9.3 g/dL (12.9-16.9); Immature Granulocytes % 0.4 % (0-4); Lymphocytes # 0.6 K/mcL (0.6-4.6); Lymphocytes % 7.9 %; Mean Corpuscular HGB Conc 30.7 g/dL (31.6-35.5); Mean Corpuscular Hemoglobin 29.4 pg (28.0-33.3); Mean Corpuscular Volume 95.9 fL (83.0-100.0); Mean Platelet Volume 11.5 fL (9.4-12.4); Monocytes # 0.7 K/mcL (0.0-1.3); Monocytes % 9.3 %; Neutrophils # 6.4 K/mcL (1.6-8.9); Platelet Count 111 K/mcL (140-400); Red Blood Count 3.16 M/mcL (4.19-5.50); Red Cell Distribution Width 15.6 % (11.5-14.5); Segmented Neutrophils % 81.2 %; White Blood Count 7.9 K/mcL (4.3-11.1)
[2019-01-11 05:25] LABS: BUN/Creatinine Ratio 25 (6-26); Blood Urea Nitrogen 19 mg/dL (8-23); Calcium 7.5 mg/dL (8.6-10.3); Carbon Dioxide 28 mEq/L (23-29); Chloride 107 mEq/L (98-107); Glucose 101 mg/dL (70-105); Osmolality,Calculated 292 (280-300); Platelet Estimate Slight Decrease (Normal); Potassium 3.5 mEq/L (3.5-5.1); Sodium 140 mEq/L (136-145); Tear Drop Cells 1+ (Not Present); eGFR For African Americans > 60 (> 60); eGFR For Non-African Americans > 60 (> 60)
[2019-01-11] MEDS: Morphine Sulfate ER (12 HR) 15 MG TABLET.ER PO SCH ×2 (05:49→18:51)
[2019-01-11] MEDS: Levothyroxine 25 MCG TABLET PO SCH (05:49)
[2019-01-11] MEDS: Ondansetron 4 MG/2 ML VIAL IVP PRN ×3 (07:03→20:56)
[2019-01-11] MEDS: Budesonide/Formoterol 160/4.5 1 PUFF INH IH SCH ×2 (08:06→21:25)
[2019-01-11] MEDS: Cholecalciferol (D-3) 1,000 UNIT TABLET PO SCH (08:13)
[2019-01-11] MEDS: Lactobacillus 1 EACH CAP.SPRINK PO SCH (08:13)
[2019-01-11] MEDS: Metoprolol XL (24 HR) Succ 25 MG TAB.ER.24H PO SCH (08:14)
[2019-01-11] MEDS: (Tiotropium Bromide [Spiriva Respimat] 2 PUFF) IH SCH (08:51)
--- NOTE | 2019-01-11 10:22 | Internal Med Progress Note ---
Hospitalist Progress Note - Encounter Date of Encounter: 01/11/19 Time of Encounter: 10:21 - Subjective Interval History: Patient had one bowel movement with fresh red blood and brown color. Complain of some nausea but denies vomiting. Patient has chronic right upper quadrant pain and got gallbladder ultrasound recently at [place] but not aware about the re port. Review the lab with a stable hemoglobin. Review of the vitals Denies fever chills vomiting headache dizziness chest pain urinary complaint - Exam Vitals: Temp Pulse Resp BP Pulse Ox 98.8 F 93 16 113/65 93 01/11/19 07:11 01/11/19 07:11 01/11/19 08:06 01/11/19 07:11 01/11/19 08:06 Exam: General appearance: No acute distress, A&O X 3. Eye exam: EOMI, PERRLA. Pallor conjunctiva. Slight puffiness around the eyes ENT exam: Moist oral mucosa Neck nontender, supple Respiratory exam: Decreased breath sound bilateral but slight faint crepitation on left lower lobe Cardiovascular exam: Regular rate and rhythm, no systolic murmur Abdominal exam: Soft, mild right upper quadrant tenderness, nondistended, positive bowel sounds Extremities exam: No calf tenderness, no pedal edema Present: Skin-no rash, warm, dry, intact Neurological exam: Alert, awake, oriented 3, CN II-XII intact, no focal deficits. No facial droop. Normal speech. - Assessment and Plan (1) Acute GI bleeding Current Visit: Yes Status: Acute Assessment and Plan: History of recurrent GI bleed in the past. Is status post hernan-colectomy and then repeat bleeding 2015 and . Patient had multiple scope and Endoscopically with No Significant Finding. Patient has symptomatic anemia. Stool occult po sitive. Hemoglobin is stable after 2 unit blood transfusion . Endoscopy with esophageal polyps and single red spot in stomach treated with APC-done on 01/10/2019. Colonoscopy with fair prep, no obvious bleeding noted. Tolerating clear diet. Further advancement of diet as per GI advise. Stop IV fluid as patient had history of diastolic heart failure PRC transfusion if needed Continue PPI drip for now. Hemoglobin monitoring SCD for DVT prophylaxis If further drop in hemoglobin then GI team will reconsider colonoscopy. (2) Anemia due to blood loss, acute Current Visit: Yes Status: Acute Assessment and Plan: as mentioned above. Hemoglobin 8.9 on admission. Noticed 3-point drop in he moglobin compared to last 3 month. (3) Anxiety and depression Current Visit: No Status: Chronic (4) Chronic back pain Current Visit: No Status: Chronic Assessment and Plan: Stable. Continue home medicine. (5) Chronic diastolic heart failure Current Visit: No Status: Chronic Assessment and Plan: Stable and does not appear in volume overloaded. Lasix on hold for now. Stopped IV fluid now is slight puffiness around the eye and minimal crepitation on left lung base noticed. Patient has low normal blood pressure therefore no diuretic given but will continue to monitor. given Continue a strict I&O's. Will consider diuresis if requires. Echo done in November 2016 Impressions: LVEF 60%. Normal LV chamber size, wall thickness and function. Mild left ventricular diastolic dysfunction. Atypical septal motion of unclear etiology. Mild to moderately dilated left atrium. Mildly dilated right ventricle with normal function. Moderate pulmonary hypertension. No significant valvular dysfunction. Left Ventricular Wall Motion: Rest Echo Findings All wall segments showed normal motion. (6) Hypertension Current Visit: No Status: Chronic Assessment and Plan: Low blood pressure on admission therefore Blood pressure medicine was on hold. Close monitoring. (7) Hypothyroidism Current Visit: No Status: Chronic Assessment and Plan: Continue home medicine (8) DVT prophylaxis Current Visit: No Status: Acute Assessment and Plan: SCDs (9) Abdominal pain Current Visit: Yes Status: Acute Assessment and Plan: Chronic. Patient had recent gallbladder ultrasound at [place] but does not have report. Ultrasound gallbladder ordered. Patient does not have any acute abdomen finding. - Time Spent with Patient Total time spent is greater than 50% in coordination of care (as documented) at patient's floor/unit and/or counseling patient: 25 - 35 minutes Internal Medicine: Result - Labs CBC & Chem 7: 01/11/19 04:27 01/11/19 04:27 Labs: Short CBC 01/10/19 01/11/19 Range/Units 13:44 04:27 WBC 7.9 (4.3-11.1) K/mcL Hgb 9.6 L 9.3 L (12.9-16.9) g/dL Hct 30.2 L 30.3 L (37.5-50.1) % Plt Count 111 L (140-400) K/mcL Neutrophils # 6.4 (1.6-8.9) K/mcL BMP 01/11/19 04:27 Sodium 140 Potassium 3.5 Chloride 107 Carbon Dioxide 28 BUN 19 Creatinine 0.75 Glucose 101 Calcium 7.5 L - ABG Interpretation ABG results: PT/INR, D-dimer PT 12.2 Seconds (9.4-12.1) H 01/09/19 13:50 Consult Discharge Plan - Plan [facility]errals: [facility] [Primary Care Provider] - 01/18/19 3:00 pm Cuate Adam MD [Partnered Physician] - (sent web request on 01-10-19 @ 1112) (4) Chronic back pain Qualifiers: Back pain location: low back pain Back pain laterality: unspecified Sciatica presence: without sciatica Qualified Code(s): M54.5 - Low back pain; G89.29 - Other chronic pain (6) Hypertension Qualifiers: Hypertension type: unspecified Qualified Code(s): I10 - Essential (primary) hypertension (7) Hypothyroidism Qualifiers: Hypothyroidism type: unspecified Qualified Code(s): E03.9 - Hypothyroidism, unspecified (9) Abdominal pain Qualifiers: Abdominal location: left upper quadrant Qualified Code(s): R10.12 - Left upper quadrant pain
--- NOTE | 2019-01-11 11:53 | Gastroenterology Progress Note ---
<Mj Livingston - Last Filed: 01/11/19 11:49> Date of Encounter: 01/11/19 Time of Encounter: 10:15 - Assessment and plan (1) GI bleed Current Visit: No Status: Acute Assessment and plan: Pt with several large volume BRBPR. Hgb 9.6 yesterday and 9.3 today. One small volume episode of BRBPR. Enteroscopy with esophageal polyps and single red spot in stomach treated with APC. Colonoscopy with fair prep, no obvious bleeding noted. If he continues to have BRBPR, will consider repeating colonoscopy. Qualifiers: GI bleed type/associated pathology: unspecified gastrointestinal hemorrhage type Qualified Code(s): K92.2 - Gastrointestinal hemorrhage, unspecified - Time Spent With Patient Total time spent is greater than 50% in coordination of care (as documented) at patient's floor/unit and/or counseling patient: - Subjective Interval history: Patient reports one small volume of BRBPR overnight. He denies any pain at this time. - Constitutional Vitals: Temp Pulse Resp BP Pulse Ox 98.8 F 93 16 113/65 93 01/11/19 07:11 01/11/19 07:11 01/11/19 08:06 01/11/19 07:11 01/11/19 08:06 General appearance: Present: cooperative, A&O X 3, no acute distress, answers questions appropriately - Head Head exam: Present: atraumatic, normocephalic - Eye Eye exam: Present: normal appearance, sclera anicteric - ENT ENT exam: Present: mucous membranes moist - Neck Neck exam general surgery: Present: normal inspection, trachea midline - Respiratory Respiratory exam: Present: CTAB. Absent: rales, rhonchi - Cardiovascular Cardiovascular exam: Present: RRR, +S1, +S2 - GI/Abdominal GI/Abdominal exam: Present: soft, no peritoneal signs. Absent: distended, firm, guarding, tenderness - Rectal Rectal exam: Present: deferred - Extremities Exam Extremities exam: Present: warm - Neurological Exam Neurological exam: Present: no focal deficits - Psychiatric Psychiatric exam: Present: normal affect, normal mood - Skin Skin exam: Present: dry, intact, normal color, warm Results - Labs CBC & Chem 7: 01/11/19 04:27 01/11/19 04:27 Labs: Last Result 01/11/19 04:27 Calcium 7.5 L Entire Visit 01/11/19 04:27 Hgb 9.3 L Hct 30.3 L - ABG ABG results: PT/INR, D-dimer PT 12.2 Seconds (9.4-12.1) H 01/09/19 13:50 Consult Discharge Plan - Plan [facility]errals: [facility] [Primary Care Provider] - 01/18/19 3:00 pm Cuate Adam MD [Partnered Physician] - (sent web request on 01-10-19 @ 1112) <Cuate Adam - Last Filed: 01/11/19 18:02> Date of Encounter: 01/11/19 Time of Encounter: 18:00 - Time Spent With Patient Total time spent is greater than 50% in coordination of care (as documented) at patient's floor/unit and/or counseling patient: - Constitutional Vitals: Temp Pulse Resp BP Pulse Ox 98.8 F 96 18 112/72 96 01/11/19 16:01 01/11/19 16:01 01/11/19 16:01 01/11/19 16:01 01/11/19 16:01 Results - Labs CBC & Chem 7: 01/11/19 04:27 01/11/19 04:27 - ABG ABG results: PT/INR, D-dimer PT 12.2 Seconds (9.4-12.1) H 01/09/19 13:50 - Impressions Impressions Gallbladder Ultrasound 01/11/19 14:00 IMPRESSION: 1. Hepatic steatosis. 2. Nonspecific mild pancreatic ductal dilation measuring up to 0.3 cm. No definite focal pancreatic lesion noted. D/ / Monisha Loyola MD / Monisha Loyola MD Interpreting Provider: Monisha Loyola MD - Attending Attestation I have personally performed a face to face evaluation on this patient. I have reviewed and agree with the care plan. History and Exam by me shows: Pt seen at the bedside had 2 episode of dark red blood in the stool today. Last one was just a few minutes ago and still has dark red blood in the commode. Assessment: Patient with recurrent lower GI bleed unclear etiology. Enteroscopy was negative and colonoscopy showed only old blood/ not a good prep. Recommendation: The bleeding scan now. Follow H&H we will give him some bowel prep in case need colon tomorrow
--- NOTE | 2019-01-11 12:47 | Electrocardiograph Report ---
[facility] Test Date: 2019-01-09 Pat Name: Surinder Abel Department: EXAM8 Room: 2N15 Gender: M Key Sander: : 1950 Requested By: Peggy Huntley Order Number: [id number] Reading MD: Zane De Leon Measurements Intervals [place] Rate: 79 P: 54 CT: 139 QRS: 50 QRSD: 95 T: 54 QT: 399 QTc: 458 Interpretive Statements Sinus rhythm wnl Electronically Signed On 01-11-2019 12:45:46 EDT by Zane De Leon
[2019-01-11] MEDS ORDERED: GI Cocktail 40 ML EACH PO ONE (15:33)
[2019-01-11 18:06] LABS: Hematocrit 24.8 % (37.5-50.1); Hemoglobin 7.6 g/dL (12.9-16.9)
[2019-01-11] MEDS: *HR* Promethazine 25 MG/ML VIAL IVP PRN (18:32)
[2019-01-11] MEDS ORDERED: Furosemide 20 MG/2 ML VIAL IVP ONE (19:03)
[2019-01-11] MEDS ORDERED: 0.9 % Sodium Chloride 250 ML ONE (21:09)
[2019-01-12] MEDS: Insulin LISPRO 300 UNITS/3 ML VIAL SQ SCH ×4 (00:40→17:17)
[2019-01-12] MEDS ORDERED: 0.9 % Sodium Chloride 250 ML ONE (01:26)
[2019-01-12] MEDS: Morphine Sulfate ER (12 HR) 15 MG TABLET.ER PO SCH ×2 (05:04→17:12)
[2019-01-12] MEDS: Pantoprazole 40 MG in 0.9 % Sodium Chloride Mini Bag 100 ML IVC SCH ×5 (05:05→20:58)
[2019-01-12] MEDS: Levothyroxine 25 MCG TABLET PO SCH (05:05)
[2019-01-12] MEDS: Budesonide/Formoterol 160/4.5 1 PUFF INH IH SCH ×2 (07:22→20:45)
[2019-01-12] MEDS: Cholecalciferol (D-3) 1,000 UNIT TABLET PO SCH (07:54)
[2019-01-12] MEDS: Lactobacillus 1 EACH CAP.SPRINK PO SCH (07:54)
[2019-01-12] MEDS: *HR* Promethazine 25 MG/ML VIAL IVP PRN ×3 (07:55→20:55)
[2019-01-12 09:05] LABS: Hematocrit 27.9 % (37.5-50.1); Hemoglobin 8.8 g/dL (12.9-16.9); Mean Corpuscular HGB Conc 31.5 g/dL (31.6-35.5)
[2019-01-12 09:06] LABS: Immature Platelets 3.9 % (1.1-6.1); Mean Corpuscular Hemoglobin 29.8 pg (28.0-33.3); Mean Corpuscular Volume 94.6 fL (83.0-100.0); Mean Platelet Volume 11.7 fL (9.4-12.4); Red Blood Count 2.95 M/mcL (4.19-5.50); Red Cell Distribution Width 14.7 % (11.5-14.5); White Blood Count 8.1 K/mcL (4.3-11.1)
[2019-01-12 09:13] LABS: BUN/Creatinine Ratio 31 (6-26); Blood Urea Nitrogen 22 mg/dL (8-23); Calcium 7.3 mg/dL (8.6-10.3); Carbon Dioxide 26 mEq/L (23-29); Chloride 108 mEq/L (98-107); Glucose 116 mg/dL (70-105); Osmolality,Calculated 286 (280-300); Potassium 3.6 mEq/L (3.5-5.1); Sodium 136 mEq/L (136-145); eGFR For African Americans > 60 (> 60); eGFR For Non-African Americans > 60 (> 60)
[2019-01-12] MEDS: SPIRIVA IH SCH (09:42)
[2019-01-12 11:06] LABS: Platelet Count 88 K/mcL (140-400)
[2019-01-12 11:12] LABS: Eosinophils # 0.2 K/mcL (0.0-0.6); Monocytes # 0.2 K/mcL (0.0-1.3); Neutrophils # 6.8 K/mcL (1.6-8.9)
[2019-01-12 11:13] LABS: Anisocytosis 1+ (Not Present); Platelet Estimate Decreased (Normal); Polychromasia 1+ (Not Present); Toxic Granulation Present (Not Present)
[2019-01-12] MEDS ORDERED: *HR* Metoprolol 5 MG/5 ML VIAL IVP ONE (12:04)
[2019-01-12] MEDS ORDERED: Propofol 500 MG/50 ML INFUS..BTL ONE (12:05)
--- NOTE | 2019-01-12 12:07 | Gastroenterology Progress Note ---
Date of Encounter: 01/12/19 Time of Encounter: 11:20 - Assessment and plan (1) GI bleed Current Visit: No Status: Acute Assessment and plan: Hgb 9.3 yesterday AM, which dropped to 7.6 yesterday evening. Two units PRBC given, and Hgb 8.8 this AM. Enteroscopy 01/10 with esophageal polyps and single red spot in stomach treated with APC. Colonoscopy 01/10 with fair prep, no obvious bleeding noted. Patient refused prep overnight, but did receive two enemas this AM. Repeat colonoscopy today. Keep NPO for scope. Qualifiers: GI bleed type/associated pathology: unspecified gastrointestinal hemorrhage type Qualified Code(s): K92.2 - Gastrointestinal hemorrhage, unspecified - Time Spent With Patient Total time spent is greater than 50% in coordination of care (as documented) at patient's floor/unit and/or counseling patient: - Subjective Interval history: Patient with continued BRBPR overnight. Patient refused bowel prep because "it hurts my stomach". Two tap water enemas given this AM by nursing staff. - Constitutional Vitals: Temp Pulse Resp BP Pulse Ox 99.4 F 99 17 99/64 93 01/12/19 11:50 01/12/19 11:50 01/12/19 11:50 01/12/19 11:50 01/12/19 11:50 General appearance: Present: cooperative, A&O X 3, no acute distress, answers questions appropriately - Head Head exam: Present: atraumatic, normocephalic - Eye Eye exam: Present: normal appearance, sclera anicteric - ENT ENT exam: Present: mucous membranes moist - Neck Neck exam general surgery: Present: normal inspection, trachea midline - Respiratory Respiratory exam: Present: CTAB. Absent: rales, rhonchi - Cardiovascular Cardiovascular exam: Present: RRR, +S1, +S2 - GI/Abdominal GI/Abdominal exam: Present: soft, no peritoneal signs. Absent: distended, firm, guarding, tenderness - Rectal Rectal exam: Present: deferred - Extremities Exam Extremities exam: Present: warm - Neurological Exam Neurological exam: Present: no focal deficits - Psychiatric Psychiatric exam: Present: normal affect, normal mood - Skin Skin exam: Present: dry, intact, normal color, warm Results - Labs CBC & Chem 7: 01/12/19 08:14 01/12/19 08:14 Labs: Last Result 01/12/19 08:14 Calcium 7.3 L Entire Visit 01/12/19 08:14 Hgb 8.8 L Hct 27.9 L - ABG ABG results: PT/INR, D-dimer PT 12.2 Seconds (9.4-12.1) H 01/09/19 13:50 - Impressions Impressions Gallbladder Ultrasound 01/11/19 14:00 IMPRESSION: 1. Hepatic steatosis. 2. Nonspecific mild pancreatic ductal dilation measuring up to 0.3 cm. No definite focal pancreatic lesion noted. D/ / Monisha Loyola MD / Monisha Loyola MD Interpreting Provider: Monisha Loyola MD Bleed Scan Nuclear Medicine 01/11/19 17:42 IMPRESSION: No evidence of active GI bleeding during acquisition. RECOMMENDATIONS: If the patient shows hemodynamic signs of an active bleed in the next 20 hours, additional images can be acquired. D/ / Brooks Mesa MD / Brooks Mesa MD Interpreting Provider: Brooks Mesa MD Consult Discharge Plan - Plan Referrals: [facility],PCP [Primary Care Provider] - 01/18/19 3:00 pm Cuate Adam MD [Partnered Physician] - (sent web request on 01-10-19 @ 0842)
--- NOTE | 2019-01-12 12:37 | Anesthesia Evaluation PreOp ---
Date of Encounter: 01/12/19 Time of Encounter: 13:01 - Past History Planned Operation: Colonoscopy Cardiac History: HTN, Hyperlipidemia Pulmonary History: Former smoker (quit 2005), COPD (home O2 qhs), Snore, WON Dx (uses Bipap) [employer] History: Denies Any Significant HX Other Medical History: Thyroid, GERD Anesthesia History: No Prior Anesthetic Complications, Past Anesthesia Alcohol Use: occasionally Drug use: none Medications and Allergies Albuterol Neb [Proventil Neb] 2.5 mg IH QID PRN 04/09/16 [History] Budesonide/Formoterol 160/4.5 [Symbicort 160/4.5] 2 puff IH BID 04/09/16 [History] Fluticasone Propionate Nasal [Flonase] 2 spray NS DAILY 04/09/16 [History] Gabapentin [Neurontin] 1,200 mg PO HS 04/09/16 [History] Gabapentin [Neurontin] 900 mg PO QAM 04/09/16 [History] L. Acidophilus/Pectin, Yell [Acidophilus Probiotic Capsule] 1 cap PO DAILY 04/09/16 [History] Levothyroxine [Synthroid] 25 mcg PO DAILY 04/09/16 [History] Albuterol Sulfate [Albuterol Inhaler] 2 puff IH Q6HR PRN 11/30/16 [History] Furosemide [Lasix] 40 mg PO DAILY PRN 09/26/18 [History] Meloxicam [Mobic] 7.5 mg PO BID 09/26/18 [History] Metoprolol Succinate [Toprol Xl] 12.5 mg PO DAILY 09/26/18 [History] Tiotropium [place] [Spiriva Respimat] 2 puff IH DAILY 09/26/18 [History] guaiFENesin [Guaifenesin] 400 mg PO TID 09/26/18 [History] Ergocalciferol (VITAMIN D2) [Vitamin D2] 50,000 unit PO FR 01/09/19 [History] Escitalopram [Lexapro] 20 mg PO QAM 01/09/19 [History] Melatonin [Melatin] 3 mg PO HS 01/09/19 [History] Prazosin [Minipress] 5 mg PO QAM 01/09/19 [History] predniSONE [PredniSONE] 10 mg PO DAILY 01/09/19 [History] Atorvastatin [Lipitor] 20 mg PO DAILY 01/11/19 [History] Azithromycin [Zithromax] 500 mg PO MOWEFR 01/11/19 [History] Benzoyl Peroxide [Bpo] 1 appl TP DAILY PRN 01/11/19 [History] Gabapentin [Neurontin] 900 mg PO QPM 01/11/19 [History] Lisinopril [Zestril] 40 mg PO DAILY 01/11/19 [History] Mirtazapine [Remeron] 15 mg PO HS 01/11/19 [History] Morphine Sulfate [Arymo ER] 30 mg PO BID 01/11/19 [History] Allergy/AdvReac Type Severity Reaction Status Date / Time No Known Allergies Allergy Verified 01/11/19 10:36 - Meds/Allergy Pre-op Review Medications Reviewed: Yes Allergies Reviewed: Yes Beta Blockers on Current Med List: Yes If Beta Blockers taken, Date/Time (Last Dose taken): 01/11/2019 at 0814 Anesthesia Results - Labs 01/12/19 08:14 01/12/19 08:14 - Imaging EKG: report reviewed (01/09/2019 Sinus rhythm wnl) Additional studies: 12/01/2016 Echo Impressions: LVEF 60%. Normal LV chamber size, wall thickness and function. Mild left ventricular diastolic dysfunction. Atypical septal motion of unclear etiology. Mild to moderately dilated left atrium. Mildly dilated right ventricle with normal function. Moderate pulmonary hypertension. No significant valvular dysfunction. 09/22/2016 Stress Impression: Perfusion imaging was negative for ischemia or infarct. Pharmacologic ECG was negative for ischemia at the level of heart rate achieved. Patient had 7/10 chest pain with pharmacologic infusion. Gated EF = 67%. Recommend clinical correlation. Anesthesia Exam Vital Signs/O2 Sat/Glucose, Most Recent Temp Pulse Resp BP Pulse Ox 99.4 F 99 17 99/64 93 01/12/19 11:50 01/12/19 11:50 01/12/19 11:50 01/12/19 11:50 01/12/19 11:50 Blood Glucose* 112 Height: 5'10"/1.78m Weight: 177 lbs/80.7 kg NPO (# of Hours): 8 Pain Scale: 0 Pain Scale Used: Numeric (1 - 10) - HEENT Pupil (Motor): EOMI Mallampati: III Teeth: Poor dentition Oral Opening: Greater than 3 - [employer]UCK [employer] LOC: Oriented [employer]UCK [employer] Motor: Normal RUE, Normal LUE, Normal RLE, Normal LLE, Normal Face [employer] Sensory: Normal: RUE, LUE, RLE, LLE, Face - Cardiac Rhythm: Regular Murmur: None - Pulmonary Breath Sounds: bilateral Clear Respiratory Effort: Symmetrical Anesthesia Assess/Plan ASA Score: 3 Level of consciousness: Cooperative, Oriented, Tranquil Anesthetic Plan: MAC Monitoring Plan: Standard Monitors
[2019-01-12] MEDS ORDERED: *HR* Propofol 200 MG/20 ML VIAL IVP ONE (13:05)
--- NOTE | 2019-01-12 13:07 | Internal Med Progress Note ---
Hospitalist Progress Note - Encounter Date of Encounter: 01/12/19 Time of Encounter: 12:07 - Subjective Interval History: Last evening patient had episode of hematochezia in hemoglobin dropped 2 point, joking evaluated patient and ordered a stat GI bleeding scan. Patient also got 2 unit blood transfusion. Today hemoglobin slight better. Overnight had BM with slight blurred. Patient is nothing by mouth. at bedside. Denies fever chills vomiting headache chest pain urinary complaint. Patient has chronic right upper quadrant abdominal pain. Patient also complained of nausea. - Exam Vitals: Temp Pulse Resp BP Pulse Ox 99.4 F 101 20 100/55 92 01/12/19 11:50 01/12/19 12:55 01/12/19 12:55 01/12/19 12:55 01/12/19 12:55 Exam: General appearance: No acute distress, A&O X 3. Appears tired and pale. at bedside Eye exam: EOMI, PERRLA. Pallor conjunctiva. ENT exam: Moist oral mucosa Neck nontender, supple Respiratory exam: Decreased breath sound bilateral but slight faint crepitation on left lower lobe Cardiovascular exam: Regular rate and rhythm, no systolic murmur Abdominal exam: Soft, mild right upper quadrant tenderness, nondistended, positive bowel sounds Extremities exam: No calf tenderness, no pedal edema Present: Skin-no rash, warm, dry, intact Neurological exam: Alert, awake, oriented 3, CN II-XII intact, no focal deficits. No facial droop. Normal speech. - Assessment and Plan (1) Acute GI bleeding Current Visit: Yes Status: Acute Assessment and Plan: History of recurrent GI bleed in the past. Is status post hernan-colectomy and then repeat bleeding 2015 and . Patient had multiple scope and Endoscopically with No Significant Finding. Patient has symptomatic anemia. Stool occult positive. Endoscopy with esophageal polyps and single red spot in stomach treated with APC-done on 01/10/2019. Colonoscopy with fair prep, no obvious bleeding noted. GI bleeding scan done on 01/11/2019 after having massive episode of hematochezia-with no source identified Planned to repeat colonoscopy on 01/12/2019 Patient is nothing by mouth. Continue PPI drip Total for unit PRC transfusions since admission (2) Anemia due to blood loss, acute Current Visit: Yes Status: Acute Assessment and Plan: as mentioned above. Hemoglobin 8.9 on admission. Noticed 3-point drop in hemoglobin compared to last 3 month. (3) Anxiety and depression Current Visit: No Status: Chronic Assessment and Plan: Stable. Continue home medicine (4) Chronic back pain Current Visit: No Status: Chronic Assessment and Plan: Stable. Continue home medicine. (5) Chronic diastolic heart failure Current Visit: No Status: Chronic Assessment and Plan: Stable and does not appear in volume overloaded. Lasix on hold for now. Earlie r Stopped IV fluid now is slight puffiness around the eye and minimal crepitation on left lung base noticed. Today low normal blood pressure and does not appear in volume overload therefore restarted normal saline 75 mL per hour with a strict I&O's. BMP and repeat echocardiogram also ordered to assess cardiac condition. Continue a strict I&O's. Will consider diuresis if requires. Echo done in November 2016 Impressions: LVEF 60%. Normal LV chamber size, wall thickness and function. Mild left ventricular diastolic dysfunction. Atypical septal motion of unclear etiology. Mild to moderately dilated left atrium. Mildly dilated right ventricle with normal function. Moderate pulmonary hypertension. No significant valvular dysfunction. Left Ventricular Wall Motion: Rest Echo Findings All wall segments showed normal motion. (6) Hypertension Current Visit: No Status: Chronic Assessment and Plan: Low blood pressure on admission therefore Blood pressure medicine was on hold. Close monitoring. (7) Hypothyroidism Current Visit: No Status: Chronic Assessment and Plan: Continue home medicine (8) DVT prophylaxis Current Visit: No Status: Acute Assessment and Plan: SCDs (9) Abdominal pain Current Visit: Yes Status: Acute Assessment and Plan: Chronic. Patient had recent gallbladder ultrasound at [facility] but does not have report. Patient does not have any acute abdomen finding. Lipase ordered. Gallbladder ultrasound- IMPRESSION: 1. Hepatic steatosis. 2. Nonspecific mild pancreatic ductal dilation measuring up to 0.3 cm. No definite focal pancreatic lesion noted. (10) Goals of care, counseling/discussion Current Visit: Yes Status: Acute Assessment and Plan: Spent more than 35 minutes inpatient care and communication with GI team, nursing staff, family. Patient has left crepitation along with shortness of breath but does not appear volume overloaded, ?concern for pneumonia. Repeat chest x-ray ordered. Empiric antibiotic Rocephin is started especially in the context of GI bleed and some diffuse abdominal pain. - Time Spent with Patient Total time spent is greater than 50% in coordination of care (as documented) at patient's floor/unit and/or counseling patient: Greater than 35 minutes Plan of Care Discussed with: patient Internal Medicine: Result - Labs CBC & Chem 7: 01/12/19 08:14 01/12/19 08:14 Labs: Short CBC 01/11/19 01/12/19 Range/Units 17:44 08:14 WBC 8.1 (4.3-11.1) K/mcL Hgb 7.6 L D 8.8 L (12.9-16.9) g/dL Hct 24.8 L 27.9 L (37.5-50.1) % Plt Count 88 L (140-400) K/mcL Neutrophils # 6.8 (1.6-8.9) K/mcL BMP 01/12/19 08:14 Sodium 136 Potassium 3.6 Chloride 108 H Carbon Dioxide 26 BUN 22 Creatinine 0.72 Glucose 116 H Calcium 7.3 L - ABG Interpretation ABG results: PT/INR, D-dimer PT 12.2 Seconds (9.4-12.1) H 01/09/19 13:50 - Impressions Impressions Gallbladder Ultrasound 01/11/19 14:00 IMPRESSION: 1. Hepatic steatosis. 2. Nonspecific mild pancreatic ductal dilation measuring up to 0.3 cm. No definite focal pancreatic lesion noted. D/ / Monisha Loyola MD / Monisha Loyola MD Interpreting Provider: Monisha Loyola MD Bleed Scan Nuclear Medicine 01/11/19 17:42 IMPRESSION: No evidence of active GI bleeding during acquisition. RECOMMENDATIONS: If the patient shows hemodynamic signs of an active bleed in the next 20 hours, additional images can be acquired. D/ / Brooks Mesa MD / Brooks Mesa MD Interpreting Provider: Brooks Mesa MD Consult Discharge Plan - Plan Referrals: [facility] [Primary Care Provider] - 01/18/19 3:00 pm Cuate Adam MD [Partnered Physician] - (sent web request on 01-10-19 @ 1112) (4) Chronic back pain Qualifiers: Back pain location: low back pain Back pain laterality: unspecified Sciatica presence: without sciatica Qualified Code(s): M54.5 - Low back pain; G89.29 - Other chronic pain (6) Hypertension Qualifiers: Hypertension type: unspecified Qualified Code(s): I10 - Essential (primary) hypertension (7) Hypothyroidism Qualifiers: Hypothyroidism type: unspecified Qualified Code(s): E03.9 - Hypothyroidism, unspecified (9) Abdominal pain Qualifiers: Abdominal location: left upper quadrant Qualified Code(s): R10.12 - Left upper quadrant pain
[2019-01-12] MEDS: 0.9 % Sodium Chloride 1,000 ML IVC SCH (15:08)
[2019-01-12] MEDS: cefTRIAXone 1,000 MG in Water for inj. (sterile) 10 ML IVP SCH (15:08)
[2019-01-12] MEDS: Acetaminophen 325 MG TABLET PO PRN (20:55)
[2019-01-13] MEDS: Insulin LISPRO 300 UNITS/3 ML VIAL SQ SCH ×4 (01:28→18:14)
[2019-01-13] MEDS: 0.9 % Sodium Chloride 1,000 ML IVC SCH (02:00)
[2019-01-13] MEDS: Pantoprazole 40 MG in 0.9 % Sodium Chloride Mini Bag 100 ML IVC SCH ×5 (02:53→21:10)
[2019-01-13] MEDS: Levothyroxine 25 MCG TABLET PO SCH (04:54)
[2019-01-13] MEDS: Ondansetron 4 MG/2 ML VIAL IVP PRN ×2 (04:54→16:17)
[2019-01-13] MEDS: Morphine Sulfate ER (12 HR) 15 MG TABLET.ER PO SCH ×2 (04:54→18:17)
[2019-01-13 05:29] LABS: Basophils % 0.1 %; Lymphocytes % 6.1 %; Red Blood Count 2.65 M/mcL (4.19-5.50)
[2019-01-13 05:30] LABS: VBG Ionized Calcium 1.12 mmol/L (1.15-1.35)
[2019-01-13 05:31] LABS: Eosinophils # 0.1 K/mcL (0.0-0.6); Hematocrit 25.1 % (37.5-50.1); Hemoglobin 7.9 g/dL (12.9-16.9); Immature Granulocytes % 0.5 % (0-4); Lymphocytes # 0.6 K/mcL (0.6-4.6); Mean Corpuscular HGB Conc 31.5 g/dL (31.6-35.5); Mean Corpuscular Hemoglobin 29.8 pg (28.0-33.3); Mean Corpuscular Volume 94.7 fL (83.0-100.0); Mean Platelet Volume 10.5 fL (9.4-12.4); Monocytes # 0.7 K/mcL (0.0-1.3); Monocytes % 7.1 %; Neutrophils # 8.4 K/mcL (1.6-8.9); Platelet Count 91 K/mcL (140-400); Segmented Neutrophils % 85.2 %; White Blood Count 9.8 K/mcL (4.3-11.1)
[2019-01-13 05:48] LABS: BUN/Creatinine Ratio 26 (6-26); Blood Urea Nitrogen 17 mg/dL (8-23); Carbon Dioxide 28 mEq/L (23-29); Chloride 106 mEq/L (98-107); Glucose 102 mg/dL (70-105); Potassium 3.5 mEq/L (3.5-5.1); Sodium 137 mEq/L (136-145); eGFR For African Americans > 60 (> 60); eGFR For Non-African Americans > 60 (> 60)
[2019-01-13 05:49] LABS: Calcium 7.4 mg/dL (8.6-10.3); Osmolality,Calculated 286 (280-300)
[2019-01-13] MEDS: SPIRIVA IH SCH (07:49)
[2019-01-13] MEDS: Budesonide/Formoterol 160/4.5 1 PUFF INH IH SCH ×2 (07:49→21:43)
--- NOTE | 2019-01-13 10:21 | Internal Med Progress Note ---
Hospitalist Progress Note - Encounter Date of Encounter: 01/13/19 Time of Encounter: 10:20 - Subjective Interval History: No acute event overnight. Patient did not had any bowel movement since after colonoscopy yesterday. Reviewed the lab with trending down hemoglobin. Patient had low grade temperature last night but normal white count. at bedside. Denies chills vomiting headache dizziness chest pain short of breath urinary complaint. He has stable chronic abdominal pain with some nausea. - Exam Vitals: Temp Pulse Resp BP Pulse Ox 99.7 F H 90 16 141/88 91 01/13/19 07:17 01/13/19 07:17 01/13/19 07:50 01/13/19 07:17 01/13/19 07:50 Exam: General appearance: No acute distress, A&O X 3. Appears tired and pale. at bedside Eye exam: EOMI, PERRLA. Pallor conjunctiva. ENT exam: Moist oral mucosa Neck nontender, supple Respiratory exam: Decreased breath sound bilateral but slight faint crepitation on left lower lobe Cardiovascular exam: Regular rate and rhythm, no systolic murmur Abdominal exam: Soft, mild right upper quadrant tenderness, nondistended, positive bowel sounds Extremities exam: No calf tenderness, no pedal edema Present: Skin-no rash, warm, dry, intact Neurological exam: Alert, awake, oriented 3, CN II-XII intact, no focal deficits. No facial droop. Normal speech. - Assessment and Plan (1) Acute GI bleeding Current Visit: Yes Status: Acute Assessment and Plan: History of recurrent GI bleed in the past. Is status post hernan-colectomy and then repeat bleeding 2015 and . Patient had multiple scope and Endoscopically with No Significant Finding. Patient has symptomatic anemia. Stool occult positive. Endoscopy with esophageal polyps and single red spot in stomach treated with APC-done on 01/10/2019. Colonoscopy with fair prep, no obvious bleeding noted. GI bleeding scan done on 01/11/2019 after having massive episode of hematochezia-with no source identified Planned to repeat colonoscopy on 01/12/2019-dark red blood seen in entire colon extensive washing done but no obvious source of active bleeding was found in the entire colon. Clear liquid diet. Continue PPI drip. 2 unit blood transfusion today. Updated GI team. (2) Anemia due to blood loss, acute Current Visit: Yes Status: Acute Assessment and Plan: as mentioned above. Hemoglobin 8.9 on admission. Noticed 3-point drop in hemoglobin compared to last 3 month. (3) Anxiety and depression Current Visit: No Status: Chronic (4) Chronic back pain Current Visit: No Status: Chronic (5) Chronic diastolic heart failure Current Visit: No Status: Chronic Assessment and Plan: Stable and does not appear in volume overloaded. Lasix on hold for now. Earlier Stopped IV fluid now is slight puffiness around the eye and minimal crepitation on left lung base noticed. Today low normal blood pressure and does not appear in volume overload therefore restarted normal saline 75 mL per hour with a strict I&O's. BMP and repeat echocardiogram also ordered to assess cardiac condition. Continue a strict I&O's. Will consider diuresis if requires. Echo report-done yesterday EV/EV echocardiogram Impressions: LVEF 60%. Mild left ventricular diastolic dysfunction. Normal right ventricular structure and function. Mild aortic regurgitation. Mild pulmonic regurgitation. No pulmonary hypertension. Left Ventricular Wall Motion: Rest Echo Findings All wall segments showed normal motion. Echo done in November 2016 Impressions: LVEF 60%. Normal LV chamber size, wall thickness and function. Mild left ventricular diastolic dysfunction. Atypical septal motion of unclear etiology. Mild to moderately dilated left atrium. Mildly dilated right ventricle with normal function. Moderate pulmonary hypertension. No significant valvular dysfunction. Left Ventricular Wall Motion: Rest Echo Findings All wall segments showed normal motion. (6) Hypertension Current Visit: No Status: Chronic Assessment and Plan: Low blood pressure on admission therefore Blood pressure medicine was on hold. Close monitoring. (7) Hypothyroidism Current Visit: No Status: Chronic Assessment and Plan: Continue home medicine (8) Abdominal pain Current Visit: Yes Status: Acute Assessment and Plan: Chronic. Patient had recent gallbladder ultrasound at [facility] but does not have report. Patient does not have any acute abdomen finding. Lipase normal. Gallbladder ultrasound- IMPRESSION: 1. Hepatic steatosis. 2. Nonspecific mild pancreatic ductal dilation measuring up to 0.3 cm. No definite focal pancreatic lesion noted. (9) Goals of care, counseling/discussion Current Visit: Yes Status: Acute Assessment and Plan: As mentioned above. Chest x-ray with no acute finding (10) DVT prophylaxis Current Visit: No Status: Acute Assessment and Plan: SCDs - Time Spent with Patient Total time spent is greater than 50% in coordination of care (as documented) at patient's floor/unit and/or counseling patient: 25 - 35 minutes Plan of Care Discussed with: family Internal Medicine: Result - Labs CBC & Chem 7: 01/13/19 05:17 01/13/19 05:17 Labs: Short CBC 01/12/19 01/13/19 Range/Units 08:14 05:17 WBC 8.1 9.8 (4.3-11.1) K/mcL Hgb 8.8 L 7.9 L (12.9-16.9) g/dL Hct 27.9 L 25.1 L (37.5-50.1) % Plt Count 88 L 91 L (140-400) K/mcL Neutrophils # 6.8 8.4 (1.6-8.9) K/mcL BMP 01/13/19 05:17 Sodium 137 Potassium 3.5 Chloride 106 Carbon Dioxide 28 BUN 17 Creatinine 0.66 L Glucose 102 Calcium 7.4 L - ABG Interpretation ABG results: PT/INR, D-dimer PT 12.2 Seconds (9.4-12.1) H 01/09/19 13:50 - Impressions Impressions Chest X-Ray 01/12/19 14:30 IMPRESSION: No acute findings. D/ / Timmy Perez MD / Timmy Perez MD Interpreting Provider: Timmy Perez MD Consult Discharge Plan - Plan [facility]errals: [facility] [Primary Care Provider] - 01/18/19 3:00 pm Cuate Adam MD [Partnered Physician] - (sent web request on 01-10-19 @ 0042) (4) Chronic back pain Qualifiers: Back pain location: low back pain Back pain laterality: unspecified Sciatica presence: without sciatica Qualified Code(s): M54.5 - Low back pain; G89.29 - Other chronic pain (6) Hypertension Qualifiers: Hypertension type: unspecified Qualified Code(s): I10 - Essential (primary) hypertension (7) Hypothyroidism Qualifiers: Hypothyroidism type: unspecified Qualified Code(s): E03.9 - Hypothyroidism, unspecified (8) Abdominal pain Qualifiers: Abdominal location: left upper quadrant Qualified Code(s): R10.12 - Left upper quadrant pain
[2019-01-13] MEDS: Cholecalciferol (D-3) 1,000 UNIT TABLET PO SCH (10:41)
[2019-01-13] MEDS: Lactobacillus 1 EACH CAP.SPRINK PO SCH (10:42)
[2019-01-13] MEDS: Calcium Gluconate 1gm/50mL 1 GM/50 ML BAG IVPB SCH ×6 (10:54→17:56)
[2019-01-13] MEDS ORDERED: 0.9 % Sodium Chloride 250 ML ONE ×2 (11:02→20:10)
[2019-01-13] MEDS: cefTRIAXone 1,000 MG in Water for inj. (sterile) 10 ML IVP SCH (16:05)
[2019-01-13 17:58] LABS: Hematocrit 24.6 % (37.5-50.1); Hemoglobin 7.8 g/dL (12.9-16.9)
[2019-01-14] MEDS: Insulin LISPRO 300 UNITS/3 ML VIAL SQ SCH ×4 (00:30→18:10)
[2019-01-14 01:59] LABS: Eosinophils % 1.4 %; Hematocrit 27.6 % (37.5-50.1); Immature Granulocytes % 1.1 % (0-4); Mean Corpuscular HGB Conc 32.6 g/dL (31.6-35.5); Mean Platelet Volume 10.9 fL (9.4-12.4)
[2019-01-14 01:59] LABS: VBG Ionized Calcium 1.07 mmol/L (1.15-1.35)
[2019-01-14 02:01] LABS: Basophils % 0.2 %; Eosinophils # 0.1 K/mcL (0.0-0.6); Immature Platelets 4.7 % (1.1-6.1); Lymphocytes # 0.8 K/mcL (0.6-4.6); Lymphocytes % 8.8 %; Mean Corpuscular Hemoglobin 29.6 pg (28.0-33.3); Mean Corpuscular Volume 90.8 fL (83.0-100.0); Monocytes # 0.8 K/mcL (0.0-1.3); Neutrophils # 7.4 K/mcL (1.6-8.9); Red Blood Count 3.04 M/mcL (4.19-5.50); Red Cell Distribution Width 14.9 % (11.5-14.5); Segmented Neutrophils % 79.5 %; White Blood Count 9.3 K/mcL (4.3-11.1)
[2019-01-14 02:03] LABS: Platelet Count 77 K/mcL (140-400)
[2019-01-14 02:16] LABS: BUN/Creatinine Ratio 23 (6-26); Blood Urea Nitrogen 13 mg/dL (8-23); Calcium 7.5 mg/dL (8.6-10.3); Carbon Dioxide 25 mEq/L (23-29); Chloride 105 mEq/L (98-107); Glucose 102 mg/dL (70-105); Osmolality,Calculated 284 (280-300); Potassium 3.3 mEq/L (3.5-5.1); Sodium 137 mEq/L (136-145); eGFR For African Americans > 60 (> 60); eGFR For Non-African Americans > 60 (> 60)
[2019-01-14] MEDS: Pantoprazole 40 MG in 0.9 % Sodium Chloride Mini Bag 100 ML IVC SCH ×2 (02:25→06:53)
[2019-01-14] MEDS: 0.9 % Sodium Chloride 1,000 ML IVC SCH (02:25)
[2019-01-14] MEDS: Levothyroxine 25 MCG TABLET PO SCH (05:07)
[2019-01-14] MEDS: Morphine Sulfate ER (12 HR) 15 MG TABLET.ER PO SCH ×2 (05:07→18:10)
--- NOTE | 2019-01-14 09:48 | Internal Med Progress Note ---
Hospitalist Progress Note - Encounter Date of Encounter: 01/14/19 Time of Encounter: 09:48 - Subjective Interval History: Patient it is small amount of melena once last midnight since after the colonoscopy procedure. Tolerating clear liquid diet. Denies fresh red blood per rectum. He also had low-grade temperature with chills. Review the lab normal white count. Hemoglobin 9.0. Review the vitals Patient denies vomiting headache dizziness chest pain short of breath diarrhea urinary complaint. Complained of generalized weakness tiredness and fatigue - Exam Vitals: Temp Pulse Resp BP Pulse Ox 99.2 F 92 18 149/85 94 01/14/19 07:44 01/14/19 07:44 01/14/19 07:44 01/14/19 07:44 01/14/19 07:44 Exam: General appearance: No acute distress, A&O X 3. Appears tired Eye exam: EOMI, PERRLA. ENT exam: Moist oral mucosa Neck nontender, supple Respiratory exam: Decreased breath sound bilateral but slight faint crepitation on left lower lobe- better Cardiovascular exam: Regular rate and rhythm, no systolic murmur Abdominal exam: Soft, mild right upper quadrant tenderness- chronic, nondistended, positive bowel sounds Extremities exam: No calf tenderness, no pedal edema Present: Skin-no rash, warm, dry, intact Neurological exam: Alert, awake, oriented 3, CN II-XII intact, no focal deficits. No facial droop. Normal speech. - Assessment and Plan (1) Acute GI bleeding Current Visit: Yes Status: Acute Assessment and Plan: History of recurrent GI bleed in the past. Is status post hernan-colectomy and then repeat bleeding 2015 and . Patient had multiple scope and Endoscopically with No Significant Finding. Patient has symptomatic anemia. Stool occult positive. Endoscopy with esophageal polyps and single red spot in stomach treated with APC-done on 01/10/2019. Colonoscopy with fair prep, no obvious bleeding noted. GI bleeding scan done on 01/11/2019 after having massive episode of hematochezia-with no source identified Planned to repeat colonoscopy on 01/12/2019-dark red blood seen in entire colon extensive washing done but no obvious source of active bleeding was found in the entire colon. Clear liquid diet as tolerated but will advance to full liquid diet today. Will restart PPI drip and his start PPI 40 mg twice a day. Total blood transfusion 6 unit since admission. Hemoglobin 9.0 today. (2) Anemia due to blood loss, acute Current Visit: Yes Status: Acute Assessment and Plan: as mentioned above. Hemoglobin 8.9 on admission. Noticed 3-point drop in hemoglobin compared to last 3 month. (3) Fever and chills Current Visit: Yes Status: Acute Assessment and Plan: Low-grade but no obvious source of infection. Could be reaction to PRBC transfusion as well. Lactate, pro-calcitonin, blood culture ordered. Continue Rocephin for now. If any concern of infection then will upgrade antibiotic and also consult ID if required. (4) Chronic diastolic heart failure Current Visit: No Status: Chronic Assessment and Plan: Stable and does not appear in volume overloaded. Lasix on hold for now. Earlier gentle hydration was given due to low blood pressure. Now stopped IV fluid. strict I&O's. BMP and repeat echocardiogram also ordered to assess cardiac condition. Continue a strict I&O's. Will consider diuresis once patient stable. Echo report-done EV/EV echocardiogram Impressions: LVEF 60%. Mild left ventricular diastolic dysfunction. Normal right ventricular structure and function. Mild aortic regurgitation. Mild pulmonic regurgitation. No pulmonary hypertension. Left Ventricular Wall Motion: Rest Echo Findings All wall segments showed normal motion. Echo done in November 2016 Impressions: LVEF 60%. Normal LV chamber size, wall thickness and function. Mild left ventricular diastolic dysfunction. Atypical septal motion of unclear etiology. Mild to moderately dilated left atrium. Mildly dilated right ventricle with normal function. Moderate pulmonary hypertension. No significant valvular dysfunction. Left Ventricular Wall Motion: Rest Echo Findings All wall segments showed normal motion. (5) Hypertension Current Visit: No Status: Chronic Assessment and Plan: Low blood pressure on admission therefore Blood pressure medicine was on hold. Normal blood pressure today. Continue Close monitoring. (6) Chronic back pain Current Visit: No Status: Chronic Assessment and Plan: Stable. Continue home medicine. (7) Hypothyroidism Current Visit: No Status: Chronic Assessment and Plan: Continue home medicine (8) Abdominal pain Current Visit: Yes Status: Acute Assessment and Plan: Chronic. Patient had recent gallbladder ultrasound at [place] but does not have report. Patient does not have any acute abdomen finding. Lipase normal. Gallbladder ultrasound- IMPRESSION: 1. Hepatic steatosis. 2. Nonspecific mild pancreatic ductal dilation measuring up to 0.3 cm. No definite focal pancreatic lesion noted. 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 Possible discharge in 1-2 days after getting clearance from GI and no further active bleeding. If further active bleeding then discuss about transfer higher center possibly [employer]-started conversation with patient and after discussing with GI specialist. (10) Anxiety and depression Current Visit: No Status: Chronic Assessment and Plan: Stable. Continue home medicine (11) DVT prophylaxis Current Visit: No Status: Acute Assessment and Plan: SCDs - Time Spent with Patient Total time spent is greater than 50% in coordination of care (as documented) at patient's floor/unit and/or counseling patient: 25 - 35 minutes Plan of Care Discussed with: patient Internal Medicine: Result - Labs CBC & Chem 7: 01/14/19 01:39 01/14/19 01:39 Labs: Short CBC 01/13/19 01/14/19 Range/Units 16:54 01:39 WBC 9.3 (4.3-11.1) K/mcL Hgb 7.8 L 9.0 L (12.9-16.9) g/dL Hct 24.6 L 27.6 L (37.5-50.1) % Plt Count 77 L (140-400) K/mcL Neutrophils # 7.4 (1.6-8.9) K/mcL BMP 01/14/19 01:39 Sodium 137 Potassium 3.3 L Chloride 105 Carbon Dioxide 25 BUN 13 Creatinine 0.56 L Glucose 102 Calcium 7.5 L - ABG Interpretation ABG results: PT/INR, D-dimer PT 12.2 Seconds (9.4-12.1) H 01/09/19 13:50 - Impressions Impressions Echocardiogram 01/12/19 14:35 Impressions: LVEF 60%. Mild left ventricular diastolic dysfunction. Normal right ventricular structure and function. Mild aortic regurgitation. Mild pulmonic regurgitation. No pulmonary hypertension. Left Ventricular Wall Motion: Rest Echo Findings All wall segments showed normal motion. Findings: Study Quality * Technically adequate exam. ECG Findings * Normal sinus rhythm. Left Ventricle * LVEF 60%. * Normal LV chamber size, wall thickness and systolic function. * Mild left ventricular diastolic dysfunction. Right Ventricle * Normal right ventricular structure and function. Left Atrium * Normal left atrial size. Right Atrium * Normal right atrial size. Interatrial Septum * Interatrial septum not well evaluated. Aortic Valve * Trileaflet aortic valve. * Mild aortic regurgitation. * No aortic stenosis. Mitral Valve * Normal mitral valve structure. * No mitral stenosis. * Trace mitral regurgitation. Tricuspid Valve * Normal tricuspid valve structure. * No tricuspid stenosis. * Trace tricuspid regurgitation. * Estimated RVSP is 22 mmHg. * Estimated RA pressure is 8 mmHg. * No pulmonary hypertension. Pulmonic Valve * Pulmonic valve is not well visualized. * No pulmonic stenosis. * Mild pulmonic regurgitation. Aorta * Normally sized aortic root. Pericardium * The pericardium appears normal. IVC * The IVC is not dilated. * < 50% respiratory change. Consult Discharge Plan - Plan Referrals: [facility] [Primary Care Provider] - 01/18/19 3:00 pm Cuate Adam MD [Partnered Physician] - (sent web request on 01-10-19 @ [phone]) __ (5) Hypertension Qualifiers: Hypertension type: unspecified Qualified Code(s): I10 - Essential (primary) hypertension (6) Chronic back pain Qualifiers: Back pain location: low back pain Back pain laterality: unspecified Sciatica presence: without sciatica Qualified Code(s): M54.5 - Low back pain; G89.29 - Other chronic pain (7) Hypothyroidism Qualifiers: Hypothyroidism type: unspecified Qualified Code(s): E03.9 - Hypothyroidism, unspecified (8) Abdominal pain Qualifiers: Abdominal location: left upper quadrant Qualified Code(s): R10.12 - Left upper quadrant pain
[2019-01-14] MEDS: Cholecalciferol (D-3) 1,000 UNIT TABLET PO SCH (10:12)
[2019-01-14] MEDS: Lactobacillus 1 EACH CAP.SPRINK PO SCH (10:13)
[2019-01-14] MEDS: Calcium Gluconate 1gm/50mL 1 GM/50 ML BAG IVPB SCH ×3 (10:14→14:07)
[2019-01-14] MEDS: Budesonide/Formoterol 160/4.5 1 PUFF INH IH SCH ×2 (11:01→19:53)
[2019-01-14] MEDS: SPIRIVA IH SCH (11:01)
[2019-01-14] MEDS: Pantoprazole 40 MG VIAL IVP SCH (14:17)
[2019-01-14] MEDS: cefTRIAXone 1,000 MG in Water for inj. (sterile) 10 ML IVP SCH (18:10)
[2019-01-15] MEDS: Insulin LISPRO 300 UNITS/3 ML VIAL SQ SCH ×4 (00:24→17:19)
[2019-01-15] MEDS: Pantoprazole 40 MG VIAL IVP SCH ×2 (00:28→00:32)
[2019-01-15 03:41] LABS: Red Cell Distribution Width 14.5 % (11.5-14.5)
[2019-01-15 03:43] LABS: Basophils % 0.2 %; Eosinophils # 0.2 K/mcL (0.0-0.6); Eosinophils % 1.5 %; Hematocrit 24.9 % (37.5-50.1); Hemoglobin 8.2 g/dL (12.9-16.9); Immature Granulocytes % 1.3 % (0-4); Immature Platelets 5.4 % (1.1-6.1); Lymphocytes # 0.8 K/mcL (0.6-4.6); Mean Corpuscular HGB Conc 32.9 g/dL (31.6-35.5); Mean Corpuscular Hemoglobin 29.9 pg (28.0-33.3); Mean Corpuscular Volume 90.9 fL (83.0-100.0); Monocytes % 9.4 %; Red Blood Count 2.74 M/mcL (4.19-5.50); Segmented Neutrophils % 79.6 %; White Blood Count 10.1 K/mcL (4.3-11.1)
[2019-01-15 03:50] LABS: Platelet Count 91 K/mcL (140-400)
[2019-01-15 03:56] LABS: BUN/Creatinine Ratio 19 (6-26); Blood Urea Nitrogen 11 mg/dL (8-23); Calcium 7.6 mg/dL (8.6-10.3); Carbon Dioxide 31 mEq/L (23-29); Chloride 101 mEq/L (98-107); Glucose 118 mg/dL (70-105); Osmolality,Calculated 288 (280-300); Potassium 3.6 mEq/L (3.5-5.1); Sodium 139 mEq/L (136-145); eGFR For African Americans > 60 (> 60); eGFR For Non-African Americans > 60 (> 60)
[2019-01-15] MEDS: Levothyroxine 25 MCG TABLET PO SCH (05:54)
[2019-01-15] MEDS: Morphine Sulfate ER (12 HR) 15 MG TABLET.ER PO SCH ×2 (05:54→17:22)
[2019-01-15] MEDS: SPIRIVA IH SCH (07:32)
[2019-01-15] MEDS: Budesonide/Formoterol 160/4.5 1 PUFF INH IH SCH ×2 (07:32→20:06)
[2019-01-15] MEDS: Pantoprazole 40 MG in 0.9 % Sodium Chloride Mini Bag 100 ML IVC SCH (07:32)
[2019-01-15] MEDS: 0.9 % Sodium Chloride 1,000 ML IVC SCH (07:32)
[2019-01-15] MEDS: Lactobacillus 1 EACH CAP.SPRINK PO SCH (09:37)
[2019-01-15] MEDS: Cholecalciferol (D-3) 1,000 UNIT TABLET PO SCH (09:37)
[2019-01-15] MEDS: Metoprolol XL (24 HR) Succ 25 MG TAB.ER.24H PO SCH (09:37)
--- NOTE | 2019-01-15 11:50 | Internal Med Progress Note ---
Hospitalist Progress Note - Encounter Date of Encounter: 01/15/19 Time of Encounter: 11:48 - Subjective Interval History: Pt denies any further bleeding but states he has not had food or fluid in quite a while. Denies leg swelling or SOB or CP, no N/V/D. - Exam Vitals: Temp Pulse Resp BP Pulse Ox 99.4 F 97 20 123/79 92 01/15/19 07:00 01/15/19 07:00 01/15/19 07:32 01/15/19 07:00 01/15/19 07:32 Exam: General: NAD, good eye contact, relatively well appearing Thoracic: faint bibasilar crackles Cardio: Normal S1 and S2, regular rate and rhythm Abdomen: Soft, nontender Extremities: Warm, well perfused. DP pulses 2+ b/l. No edema. Skin: Intact. No rashes, bruises, or ulcers Neuro: Awake, fully oriented. Speech fluent - Assessment and Plan (1) Acute GI bleeding Current Visit: Yes Status: Acute Assessment and Plan: c/b acute blood loss anemia. Hx recurrent GI bleeds. Is s/p hernan-colectomy with repeat bleeding and . Patient currently has symptomatic anemia. This admission underwent EGD/enteroscopy 01/10 showing esophageal polyps and single red spot in stomach treated with APC. Colonoscopy 01/10 and again 01/12 with old blood throughout entire colon but no acute bleeding after extensive washing. Tagged RBC scan unable to identify source. - tolerating full liquid diet - PPI bid - GI following, awaiting additional rec's - s/p 6u prbc during admission, last unit 01/14, Hb today is downtrending but hemodynamically stable - if continues to bleed, consider transfer for further endoscopic evaluation Fever: improved, follow cultures, suspect 2/2 multiple transfusions - stop empiric rocephin HFpEF and moderate PH: monitor volume status and consider prn diuresis if overloaded HTN: continue home meds Chronic back pain: continue home meds Hypothyroidism: home synthroid Generalized weakness: PT/OT following Anx/dep: home meds PPx: SCDs FEN: full liquid, no MIVF Lines: PIV Consults: GI Code: Full Dispo: patient requires inpatient eval and management at this time, unclear dispo at this time Internal Medicine: Result - Labs CBC & Chem 7: 01/15/19 03:12 01/15/19 03:12 Labs: Short CBC 01/15/19 Range/Units 03:12 WBC 10.1 (4.3-11.1) K/mcL Hgb 8.2 L (12.9-16.9) g/dL Hct 24.9 L (37.5-50.1) % Plt Count 91 L (140-400) K/mcL Neutrophils # 8.0 (1.6-8.9) K/mcL BMP 01/15/19 03:12 Sodium 139 Potassium 3.6 Chloride 101 Carbon Dioxide 31 H BUN 11 Creatinine 0.57 L Glucose 118 H Calcium 7.6 L - ABG Interpretation ABG results: PT/INR, D-dimer PT 12.2 Seconds (9.4-12.1) H 01/09/19 13:50 Consult Discharge Plan - Plan [facility] Care Provider[facility] - 01/18/19 3:00 pm Cuate Adam MD [Partnered Physician] - (sent web request on 01-10-19 @ [phone])
[2019-01-16] MEDS: Insulin LISPRO 300 UNITS/3 ML VIAL SQ SCH ×4 (00:28→17:43)
[2019-01-16] MEDS: Pantoprazole 40 MG VIAL IVP SCH ×2 (00:45→13:10)
[2019-01-16 04:39] LABS: Hematocrit 21.9 % (37.5-50.1); Hemoglobin 7.1 g/dL (12.9-16.9); Mean Corpuscular HGB Conc 32.4 g/dL (31.6-35.5); Mean Corpuscular Hemoglobin 29.8 pg (28.0-33.3); Mean Platelet Volume 10.7 fL (9.4-12.4); Platelet Count 113 K/mcL (140-400); Red Blood Count 2.38 M/mcL (4.19-5.50); Red Cell Distribution Width 14.4 % (11.5-14.5); White Blood Count 10.2 K/mcL (4.3-11.1)
[2019-01-16 04:50] LABS: BUN/Creatinine Ratio 22 (6-26); Blood Urea Nitrogen 12 mg/dL (8-23); Calcium 7.7 mg/dL (8.6-10.3); Carbon Dioxide 33 mEq/L (23-29); Chloride 99 mEq/L (98-107); Glucose 122 mg/dL (70-105); Magnesium 1.9 mg/dL (1.6-2.6); Osmolality,Calculated 285 (280-300); Potassium 3.5 mEq/L (3.5-5.1); Sodium 137 mEq/L (136-145); eGFR For African Americans > 60 (> 60); eGFR For Non-African Americans > 60 (> 60)
[2019-01-16] MEDS: Levothyroxine 25 MCG TABLET PO SCH (06:03)
[2019-01-16] MEDS: Morphine Sulfate ER (12 HR) 15 MG TABLET.ER PO SCH ×2 (06:03→17:46)
--- NOTE | 2019-01-16 06:17 | Event Note ---
Date of Encounter: 01/16/19 Time of Encounter: 06:00 Patient was to be made clears only until midnight then NPO after midnight for GI intervention today d/t GI bleeding. Patient's last meal was before 18:00 last night with nothing else overnight. Alerted by pts. nurse ANGELES Dooley that the pts. Hgb had dropped to 7.1 this a.m. Transfusion order for 3 units of PRBCs placed stat. GI to determine how to proceed d/t new drop in Hgb this a.m. Nurse confirmed that the pt. had nothing by mouth except water w/medications. Nurse instructed to continue monitoring the patient closely and alert me immediately of any adverse changes.
[2019-01-16] MEDS: Budesonide/Formoterol 160/4.5 1 PUFF INH IH SCH ×2 (07:26→21:10)
[2019-01-16] MEDS: SPIRIVA IH SCH (07:26)
--- NOTE | 2019-01-16 07:59 | Internal Med Progress Note ---
Hospitalist Progress Note - Encounter Date of Encounter: 01/16/19 Time of Encounter: 07:59 - Subjective Interval History: Pt asymptomatic today, reports no further BMs and no blood per rectum. Pt does have mild nonfocal R-sided abd pain. Denies N/V. No CP or SOB or leg swelling. GI planning for repeat push enteroscopy today. - Exam Vitals: Temp Pulse Resp BP Pulse Ox 98.9 F 95 16 136/80 92 01/16/19 07:50 01/16/19 07:50 01/16/19 07:50 01/16/19 07:50 01/16/19 07:50 Exam: General: NAD, good eye contact, relatively well appearing Thoracic: more pronounced bibasilar crackles Cardio: Normal S1 and S2, regular rate and rhythm Abdomen: Soft, nontender Extremities: Warm, well perfused. DP pulses 2+ b/l. No edema. Skin: Intact. No rashes, bruises, or ulcers Neuro: Awake, fully oriented. Speech fluent - Assessment and Plan (1) Acute GI bleeding Current Visit: Yes Status: Acute - Summary of Assessment and Plan Summary of Assessment and Plan: Surinder Abel is a 68 M w hx HFpEF, HTN, hypothyroidism, anx/dep, chronic back pain, and recurrent GI bleeds s/p hemicolectomy, who p/w several episodes BRBPR, Hb down to 9, consistent with GI bleed causing acute blood loss anemia. Acute GI bleed: c/b acute blood loss anemia. Source unknown. Hx recurrent GI bleeds, and is s/p hernan-colectomy with repeat bleeding and . This admission underwent EGD/enteroscopy 01/10 showing esophageal polyps and single red spot in stomach treated with APC. Colonoscopy 01/10 and again 01/12 with old blood throughout entire colon but no acute bleeding after extensive washing. Tagged RBC scan 01/11 unable to identify source. - tolerating full liquid diet but was made NPO@[place] - GI planning for repeat push enteroscopy today - continue PPI bid - if continues to bleed, consider transfer for further endoscopic evaluation Acute blood loss anemia: 2/2 above. S/p 6u prbc during admission, last unit 01/14, Hb today is significantly downtrending, pt remains hemodynamically stable - maintain T&C, monitor H&H q12h - transfuse additional 2u today - lasix 40 iv between units Fever: resolved, cultures ngtd, suspect 2/2 multiple transfusions, did receive 3 days empiric rocephin HFpEF and moderate PH: mild hypervolemia today w bibasilar crackles, lasix as above HTN: continue home meds Chronic back pain: continue home meds Hypothyroidism: home synthroid Generalized weakness: PT/OT following Anx/dep: home meds PPx: SCDs FEN: NPO then resume clears after EGD, no MIVF Lines: PIV Consults: GI Code: Full Dispo: patient requires inpatient eval and management at this time, unclear dispo at this time Internal Medicine: Result - Labs CBC & Chem 7: 01/16/19 04:18 01/16/19 04:18 Labs: Short CBC 01/16/19 Range/Units 04:18 WBC 10.2 (4.3-11.1) K/mcL Hgb 7.1 L (12.9-16.9) g/dL Hct 21.9 L (37.5-50.1) % Plt Count 113 L (140-400) K/mcL BMP 01/16/19 04:18 Sodium 137 Potassium 3.5 Chloride 99 Carbon Dioxide 33 H BUN 12 Creatinine 0.55 L Glucose 122 H Calcium 7.7 L - ABG Interpretation ABG results: PT/INR, D-dimer PT 12.2 Seconds (9.4-12.1) H 01/09/19 13:50 Consult Discharge Plan - Plan [facility]: [facility] Provider[facility] - 01/18/19 3:00 pm Cuate Adam MD [Partnered Physician] - (sent web request on 01-10-19 @ [phone])
[2019-01-16] MEDS: Metoprolol XL (24 HR) Succ 25 MG TAB.ER.24H PO SCH (08:59)
[2019-01-16] MEDS: Cholecalciferol (D-3) 1,000 UNIT TABLET PO SCH (08:59)
[2019-01-16] MEDS: Lactobacillus 1 EACH CAP.SPRINK PO SCH (08:59)
[2019-01-16] MEDS: Acetaminophen 325 MG TABLET PO PRN (09:01)
[2019-01-16] MEDS ORDERED: Furosemide 40 MG/4 ML VIAL IVP ONE ×2 (12:07→20:15)
--- NOTE | 2019-01-16 13:12 | Anesthesia Evaluation PreOp ---
Date of Encounter: 01/16/19 Time of Encounter: 14:00 - Past History Planned Operation: push enteroscopy Cardiac History: HTN, Hyperlipidemia Pulmonary History: Former smoker (quit 2005), COPD (home O2), WON Dx (Bipap) [employer] History: Denies Any Significant HX Other Medical History: Thyroid, GERD Anesthesia History: No Prior Anesthetic Complications, Past Anesthesia (had c-s cope 01-12-19) Alcohol Use: occasionally Drug use: none Medications and Allergies Albuterol Neb [Proventil Neb] 2.5 mg IH QID PRN 04/09/16 [History] Budesonide/Formoterol 160/4.5 [Symbicort 160/4.5] 2 puff IH BID 04/09/16 [History] Fluticasone Propionate Nasal [Flonase] 2 spray NS DAILY 04/09/16 [History] Gabapentin [Neurontin] 1,200 mg PO HS 04/09/16 [History] Gabapentin [Neurontin] 900 mg PO QAM 04/09/16 [History] L. Acidophilus/Pectin, [place] [Acidophilus Probiotic Capsule] 1 cap PO DAILY 04/09/16 [History] Levothyroxine [Synthroid] 25 mcg PO DAILY 04/09/16 [History] Albuterol Sulfate [Albuterol Inhaler] 2 puff IH Q6HR PRN 11/30/16 [History] Furosemide [Lasix] 40 mg PO DAILY PRN 09/26/18 [History] Meloxicam [Mobic] 7.5 mg PO BID 09/26/18 [History] Metoprolol Succinate [Toprol Xl] 12.5 mg PO DAILY 09/26/18 [History] Tiotropium [place] [Spiriva Respimat] 2 puff IH DAILY 09/26/18 [History] guaiFENesin [Guaifenesin] 400 mg PO TID 09/26/18 [History] Ergocalciferol (VITAMIN D2) [Vitamin D2] 50,000 unit PO FR 01/09/19 [History] Escitalopram [Lexapro] 20 mg PO QAM 01/09/19 [History] Melatonin [Melatin] 3 mg PO HS 01/09/19 [History] Prazosin [Minipress] 5 mg PO QAM 01/09/19 [History] predniSONE [PredniSONE] 10 mg PO DAILY 01/09/19 [History] Atorvastatin [Lipitor] 20 mg PO DAILY 01/11/19 [History] Azithromycin [Zithromax] 500 mg PO MOWEFR 01/11/19 [History] Benzoyl Peroxide [Bpo] 1 appl TP DAILY PRN 01/11/19 [History] Gabapentin [Neurontin] 900 mg PO QPM 01/11/19 [History] Lisinopril [Zestril] 40 mg PO DAILY 01/11/19 [History] Mirtazapine [Remeron] 15 mg PO HS 01/11/19 [History] Morphine Sulfate [Arymo ER] 30 mg PO BID 01/11/19 [History] Allergy/AdvReac Type Severity Reaction Status Date / Time No Known Allergies Allergy Verified 01/11/19 10:36 - Meds/Allergy Pre-op Review Medications Reviewed: Yes Allergies Reviewed: Yes Beta Blockers on Current Med List: Yes If Beta Blockers taken, Date/Time (Last Dose taken): today 0900 Anesthesia Results - Labs 01/16/19 04:18 01/16/19 04:18 Anesthesia Exam Selected Entries 01/16/19 12:01 Temperature 98.1 F Pulse Rate 93 Respiratory Rate 14 Blood Pressure 95/63 O2 Sat by Pulse Oximetry 95 Oxygen Flow Rate (LPM) 5 Weight: 77kg NPO (# of Hours): 8 - HEENT Pupil (Motor): EOMI Mallampati: III Teeth: Poor dentition Oral Opening: Greater than 3 - [employer] LOC: Oriented [employer] Motor: Normal RUE, Normal LUE, Normal RLE, Normal LLE, Normal Face [employer] Sensory: Normal: RUE, LUE, RLE, LLE, Face - Cardiac Rhythm: Regular Murmur: None - Pulmonary Breath Sounds: bilateral Clear Respiratory Effort: Symmetrical Anesthesia Assess/Plan ASA Score: 3 Level of consciousness: Cooperative, Oriented Anesthetic Plan: MAC Monitoring Plan: Standard Monitors Recovery Plan: Other (agrees to MAC)
[2019-01-16] MEDS ORDERED: 0.9 % Sodium Chloride 250 ML ONE ×2 (16:12→21:04)
[2019-01-16 17:30] LABS: Hematocrit 23.3 % (37.5-50.1); Hemoglobin 7.4 g/dL (12.9-16.9)
[2019-01-16] MEDS: Sucralfate 1 GM TABLET PO SCH ×2 (17:46→20:17)
[2019-01-17] MEDS: Pantoprazole 40 MG VIAL IVP SCH ×2 (00:31→11:19)
[2019-01-17] MEDS: Insulin LISPRO 300 UNITS/3 ML VIAL SQ SCH ×4 (00:39→20:32)
[2019-01-17] MEDS: Levothyroxine 25 MCG TABLET PO SCH (05:31)
[2019-01-17] MEDS: Morphine Sulfate ER (12 HR) 15 MG TABLET.ER PO SCH ×2 (05:31→16:56)
[2019-01-17] MEDS: Budesonide/Formoterol 160/4.5 1 PUFF INH IH SCH ×2 (07:28→20:30)
[2019-01-17] MEDS: Cholecalciferol (D-3) 1,000 UNIT TABLET PO SCH (07:39)
[2019-01-17] MEDS: Metoprolol XL (24 HR) Succ 25 MG TAB.ER.24H PO SCH (07:40)
[2019-01-17] MEDS: Sucralfate 1 GM TABLET PO SCH ×4 (07:40→19:47)
[2019-01-17] MEDS: Lactobacillus 1 EACH CAP.SPRINK PO SCH (07:40)
[2019-01-17 07:45] LABS: Hematocrit 28.9 % (37.5-50.1); Mean Corpuscular HGB Conc 32.5 g/dL (31.6-35.5); Mean Corpuscular Hemoglobin 29.5 pg (28.0-33.3); Mean Corpuscular Volume 90.6 fL (83.0-100.0); Mean Platelet Volume 10.5 fL (9.4-12.4); Platelet Count 157 K/mcL (140-400); Red Blood Count 3.19 M/mcL (4.19-5.50); Red Cell Distribution Width 14.3 % (11.5-14.5); White Blood Count 11.4 K/mcL (4.3-11.1)
[2019-01-17 07:48] LABS: Hemoglobin 9.4 g/dL (12.9-16.9)
--- NOTE | 2019-01-17 07:52 | Internal Med Progress Note ---
Hospitalist Progress Note - Encounter Date of Encounter: 01/17/19 Time of Encounter: 07:52 - Subjective Interval History: Pt today feels tired but otherwise no issues, denies any BMs or blood per rectum, no N/V, tolerated full liquid diet, no abd pain. No CP or SOB or leg swelling. - Exam Vitals: Temp Pulse Resp BP Pulse Ox 98.7 F 88 20 149/89 93 01/17/19 07:20 01/17/19 07:20 01/17/19 07:20 01/17/19 07:20 01/17/19 07:20 Exam: General: NAD, good eye contact, relatively well appearing Thoracic: Mild L-sided basilar crackles Cardio: Normal S1 and S2, regular rate and rhythm Abdomen: Soft, nontender Extremities: Warm, well perfused. DP pulses 2+ b/l. No edema. Skin: Intact. No rashes, bruises, or ulcers Neuro: Awake, fully oriented. Speech fluent - Summary of Assessment and Plan Summary of Assessment and Plan: Surinder Abel is a 68 M w hx HFpEF, HTN, hypothyroidism, anx/dep, chronic back pain, and recurrent GI bleeds s/p hemicolectomy, who p/w several episodes BRBPR, Hb down to 9, consistent with GI bleed causing acute blood loss anemia. Acute GI bleed: Hx recurrent GI bleeds, and is s/p hernan-colectomy with repeat bleeding ' and . This admission underwent EGD/enteroscopy 01/10 showing esophageal polyps and single red spot in stomach treated with APC. Colonoscopy 01/10 and again 01/12 with old blood throughout entire colon but no acute bleeding after extensive washing. Tagged RBC scan 01/11 unable to identify source. Continued bleeding and transfusion requirements, thus repeat EGD/push enteroscopy on 01/16 showed nonbleeding cratered gastric ulcer 2cm (possibly site of previous APC) which was cauterized, and a single 5mm nonbleeding angiodysplastic lesion in stomach also cauterized. - GI following, appreciate assistance - resumed on full liquids - continue PPI bid - Hb stable today after 2u yesterday, continue to monitor - if has recurrent bleeds, consider transfer for further endoscopic evaluation Acute blood loss anemia: 2/2 above. S/p 8u prbc during admission, last units 6/18, Hb today is improved by 2 following 2u yesterday, and pt remains hemodynamically stable - maintain T&C, monitor H&H q12h Fever: resolved, cultures ngtd, suspect 2/2 multiple transfusions, did receive 3 days empiric rocephin HFpEF and moderate PH: mild hypervolemia today w bibasilar crackles, lasix as above HTN: continue home meds Chronic back pain: continue home meds Hypothyroidism: home synthroid Generalized weakness: PT/OT following Anx/dep: home meds PPx: SCDs FEN: full liquids, no MIVF Lines: PIV Consults: GI Code: Full Dispo: patient requires inpatient eval and management at this time, monitor for additional bleeding for another 48h Internal Medicine: Result - Labs CBC & Chem 7: 01/17/19 06:59 01/16/19 04:18 Labs: Short CBC 01/16/19 01/17/19 Range/Units 17:07 06:59 WBC 11.4 H (4.3-11.1) K/mcL Hgb 7.4 L 9.4 L D (12.9-16.9) g/dL Hct 23.3 L 28.9 L (37.5-50.1) % Plt Count 157 (140-400) K/mcL - ABG Interpretation ABG results: PT/INR, D-dimer PT 12.2 Seconds (9.4-12.1) H 01/09/19 13:50 Consult Discharge Plan - Plan [facility]: [facility]Primary Care Provider[facility] - 01/18/19 3:00 pm Cuate Adam MD [Partnered Physician] - (sent web request on 01-10-19 @ [phone])
[2019-01-17] MEDS: SPIRIVA IH SCH (10:57)
[2019-01-18] MEDS: Pantoprazole 40 MG VIAL IVP SCH ×2 (00:12→11:44)
[2019-01-18] MEDS: Insulin LISPRO 300 UNITS/3 ML VIAL SQ SCH ×4 (00:13→19:25)
[2019-01-18] MEDS: Morphine Sulfate ER (12 HR) 15 MG TABLET.ER PO SCH ×2 (05:05→16:14)
[2019-01-18] MEDS: Levothyroxine 25 MCG TABLET PO SCH (05:05)
[2019-01-18] MEDS: SPIRIVA IH SCH (07:25)
[2019-01-18] MEDS: Budesonide/Formoterol 160/4.5 1 PUFF INH IH SCH ×2 (07:25→20:42)
[2019-01-18 07:44] LABS: Hematocrit 29.4 % (37.5-50.1); Hemoglobin 9.4 g/dL (12.9-16.9); Mean Corpuscular Hemoglobin 29.7 pg (28.0-33.3); Mean Platelet Volume 9.9 fL (9.4-12.4); Platelet Count 177 K/mcL (140-400); Red Blood Count 3.16 M/mcL (4.19-5.50); Red Cell Distribution Width 14.1 % (11.5-14.5); White Blood Count 12.3 K/mcL (4.3-11.1)
--- NOTE | 2019-01-18 07:53 | Internal Med Progress Note ---
Hospitalist Progress Note - Encounter Date of Encounter: 01/18/19 Time of Encounter: 07:53 - Subjective Interval History: Pt sleeping upon entrance to room, does wake with gentle voice. He states he feels weak still, but denies any further bleeding. No N/V/D. PT/OT suggested swing bed, and pt amenable. - Exam Vitals: Temp Pulse Resp BP Pulse Ox 98.4 F 93 18 153/86 92 01/18/19 07:30 01/18/19 07:30 01/18/19 07:30 01/18/19 07:30 01/18/19 07:25 Exam: General: NAD, good eye contact, relatively well appearing Thoracic: Mild L-sided basilar crackles again noted today Cardio: Normal S1 and S2, regular rate and rhythm Abdomen: Soft, nontender Extremities: Warm, well perfused. DP pulses 2+ b/l. No edema. Skin: Intact. No rashes, bruises, or ulcers Neuro: Awake, fully oriented. Speech fluent - Summary of Assessment and Plan Summary of Assessment and Plan: Surinder Abel is a 68 M w hx HFpEF, HTN, hypothyroidism, anx/dep, chronic back pain, and recurrent GI bleeds s/p hemicolectomy, who p/w several episodes BRBPR, Hb down to 9, consistent with GI bleed causing acute blood loss anemia. Acute GI bleed: Hx recurrent GI bleeds, and is s/p hernan-colectomy with repeat bleeding ' and 17. This admission underwent EGD/enteroscopy 01/10 showing esophageal polyps and single red spot in stomach treated with APC. Colonoscopy 01/10 and again 01/12 with old blood throughout entire colon but no acute bleeding after extensive washing. Tagged RBC scan 01/11 unable to identify source. Continued bleeding and transfusion requirements, thus repeat EGD/push enteroscopy on 01/16 showed nonbleeding cratered gastric ulcer 2cm (possibly site of previous APC) which was cauterized, and a single 5mm nonbleeding angiodysplastic lesion in stomach also cauterized. - GI following, appreciate assistance - continue PPI bid - Hb remains stable, although if has recurrent bleeds, consider transfer for further endoscopic evaluation Acute blood loss anemia: 2/2 above. S/p 8u prbc during admission, last units 01/16, Hb remains stable and pt hemodynamically stable - maintain T&C, monitor H&H q12h HFpEF and moderate PH: mild hypervolemia today w bibasilar crackles, lasix as above HTN: continue home meds Chronic back pain: continue home meds Hypothyroidism: home synthroid Generalized weakness: PT/OT following Anx/dep: home meds PPx: SCDs FEN: advance to softs, no MIVF Lines: PIV Consults: GI Code: Full Dispo: patient requires inpatient eval and management at this time, monitor for additional bleeding for another 24h, likely d/c tomorrow, PT/OT rec swing bed Internal Medicine: Result - Labs CBC & Chem 7: 01/18/19 04:00 01/16/19 04:18 Labs: Short CBC 01/18/19 Range/Units 04:00 WBC 12.3 H (4.3-11.1) K/mcL Hgb 9.4 L (12.9-16.9) g/dL Hct 29.4 L (37.5-50.1) % Plt Count 177 (140-400) K/mcL - ABG Interpretation ABG results: PT/INR, D-dimer PT 12.2 Seconds (9.4-12.1) H 01/09/19 13:50 Consult Discharge Plan - Plan [facility] Care Provider[facility] - 01/18/19 3:00 pm Cuate Adam MD [Partnered Physician] - (sent web request on 01-10-19 @ [phone])
[2019-01-18] MEDS: Lactobacillus 1 EACH CAP.SPRINK PO SCH (08:13)
[2019-01-18] MEDS: Cholecalciferol (D-3) 1,000 UNIT TABLET PO SCH (08:13)
[2019-01-18] MEDS: Sucralfate 1 GM TABLET PO SCH ×4 (08:14→20:56)
[2019-01-18] MEDS: Acetaminophen 325 MG TABLET PO PRN ×2 (08:14→16:14)
[2019-01-18] MEDS: Metoprolol XL (24 HR) Succ 25 MG TAB.ER.24H PO SCH (08:14)
[2019-01-18] MEDS ORDERED: Furosemide 40 MG/4 ML VIAL IVP ONE (11:44)
[2019-01-18 17:37] LABS: VBG HCO3 34 mEq/L (21-27); VBG PCO2 41 mmHg (41-51); VBG PH 7.53 pH Units (7.32-7.42); VBG PO2 140 mmHg (25-50)
[2019-01-18 17:41] LABS: Hematocrit 29.8 % (37.5-50.1); Hemoglobin 9.8 g/dL (12.9-16.9); Mean Corpuscular HGB Conc 32.9 g/dL (31.6-35.5); Mean Corpuscular Hemoglobin 29.7 pg (28.0-33.3); Mean Corpuscular Volume 90.3 fL (83.0-100.0); Mean Platelet Volume 10.4 fL (9.4-12.4); Platelet Count 187 K/mcL (140-400); Red Cell Distribution Width 14.2 % (11.5-14.5); White Blood Count 15.4 K/mcL (4.3-11.1)
[2019-01-18 17:46] LABS: INR 1.2; Prothrombin Time 14.1 Seconds (9.4-12.1)
[2019-01-18 17:48] LABS: BUN/Creatinine Ratio 14 (6-26); Blood Urea Nitrogen 9 mg/dL (8-23); Calcium 8.1 mg/dL (8.6-10.3); Carbon Dioxide 34 mEq/L (23-29); Chloride 94 mEq/L (98-107); Glucose 143 mg/dL (70-105); Magnesium 1.9 mg/dL (1.6-2.6); Osmolality,Calculated 281 (280-300); Potassium 3.3 mEq/L (3.5-5.1); Sodium 135 mEq/L (136-145); eGFR For African Americans > 60 (> 60); eGFR For Non-African Americans > 60 (> 60)
[2019-01-18 17:49] LABS: Troponin I < 0.03 ng/mL (< 0.04)
[2019-01-18] MEDS ORDERED: Potassium Chloride Elixir 20 MEQ/15 ML UDC PO ONE ×2 (18:00→20:45)
[2019-01-19] MEDS: Pantoprazole 40 MG VIAL IVP SCH ×3 (00:52→12:07)
[2019-01-19] MEDS: Piperacillin/Tazobactam 3.375 GM in 0.9 % Sodium Chloride Mini Bag 100 ML IVPB SCH ×4 (00:52→23:58)
[2019-01-19 04:59] LABS: Hematocrit 29.8 % (37.5-50.1); Hemoglobin 9.5 g/dL (12.9-16.9); Mean Corpuscular HGB Conc 31.9 g/dL (31.6-35.5); Mean Corpuscular Hemoglobin 29.1 pg (28.0-33.3); Mean Corpuscular Volume 91.1 fL (83.0-100.0); Mean Platelet Volume 10.2 fL (9.4-12.4); Platelet Count 207 K/mcL (140-400); Red Blood Count 3.27 M/mcL (4.19-5.50); White Blood Count 15.1 K/mcL (4.3-11.1)
[2019-01-19 05:07] LABS: INR 1.2; Prothrombin Time 14.1 Seconds (9.4-12.1)
[2019-01-19 05:17] LABS: Alanine Aminotransferase 4 Units/L (7-52); Albumin 2.6 g/dL (3.5-5.7); Albumin/Globulin Ratio 0.9 (1.1-2.2); Alkaline Phosphatase 61 Units/L (34-104); Aspartate Amino Transferase 14 Units/L (13-39); BUN/Creatinine Ratio 17 (6-26); Bilirubin,Direct 0.2 mg/dL (0.0-0.2); Bilirubin,Indirect 0.5 mg/dL (0.0-1.2); Bilirubin,Total 0.7 mg/dL (0.3-1.0); Blood Urea Nitrogen 11 mg/dL (8-23); Calcium 8.2 mg/dL (8.6-10.3); Carbon Dioxide 33 mEq/L (23-29); Chloride 96 mEq/L (98-107); Globulin 2.8 g/dL (2.4-3.5); Glucose 123 mg/dL (70-105); Magnesium 2.1 mg/dL (1.6-2.6); Osmolality,Calculated 285 (280-300); Potassium 3.8 mEq/L (3.5-5.1); Sodium 137 mEq/L (136-145); Total Protein 5.4 g/dL (6.4-8.9); eGFR For African Americans > 60 (> 60); eGFR For Non-African Americans > 60 (> 60)
[2019-01-19] MEDS: Morphine Sulfate ER (12 HR) 15 MG TABLET.ER PO SCH ×2 (05:57→16:23)
[2019-01-19] MEDS: Levothyroxine 25 MCG TABLET PO SCH (05:57)
[2019-01-19] MEDS: Cholecalciferol (D-3) 1,000 UNIT TABLET PO SCH (09:15)
[2019-01-19] MEDS: Sucralfate 1 GM TABLET PO SCH ×4 (09:16→21:06)
[2019-01-19] MEDS: Metoprolol XL (24 HR) Succ 25 MG TAB.ER.24H PO SCH (09:16)
[2019-01-19] MEDS: Lactobacillus 1 EACH CAP.SPRINK PO SCH (09:16)
[2019-01-19] MEDS: Furosemide 40 MG TABLET PO SCH (09:16)
[2019-01-19] MEDS: Acetaminophen 325 MG TABLET PO PRN ×2 (09:28→19:28)
--- NOTE | 2019-01-19 09:34 | Event Note ---
Date of Encounter: 01/18/19 Time of Encounter: 12:30 Notified by RN that patient found sleeping in his room without O2, sats in mid 70s%, and that upon awakening the patient he was profoundly confused, nonverbal, continuously moaning during exhalation, and not following commands. Instructed RN to immediately maximize O2 delivery, check CXR, and call RT. Pt seen and examined at bedside. At this time, O2 improved to 90% on 10-12L oxymask. He was still groaning but able to look at me, state his name, and follow basic commands, although still with attention deficit and fluctuating level of consciousness. Neuro exam without deficit, including no pupillary defect, no motor weakness, downgoing babinsky, normal LE reflexes, and pt w naming and comprehension intact able to follow some commands. Pulm exam with persistent LLL crackles worse than noted this AM, diminished RLL sounds. CXR remarkable for bilateral lower lobe batwing-appearing infiltrates with superimposed edematous markings and vascular congestion. Pt given Lasix 40 iv x1 and condom cath placed. As pt mental status improving slightly and able to take deep breaths, O2 sats improved to high 90s%. RT arrived and placed pt on Bipap, which he tolerated well. After a 1-hr trial on bipap, the patient clinical status slightly improved however still moaning uncontrollably during exhalation, and lungs still w crackles. He was sent for CT of both head and chest; head CT unremarkable, and chest CT confirms multilobar consolidations. He very shortly thereafter spiked a fever, for which empiric Zosyn was started. Lactate unremarkable, and blood cultures obtained prior to abx initiation. Dx: acute on chronic hypoxic respiratory failure, sepsis, multilobar pneumonia, acute pulmonary edema 60 minutes spent at bedside providing critical care time for this patient
--- NOTE | 2019-01-19 09:37 | Internal Med Progress Note ---
Hospitalist Progress Note - Encounter Date of Encounter: 01/19/19 Time of Encounter: 09:37 - Subjective Interval History: Pt had rough day yesterday but eventually improved, today is almost back to baseline able to talk and interact, not groaning. says he has no appetite. Pt denies N/V/D, no blood per rectum, does not remember yesterday, no cough or SOB but has not gotten up or done anything in a while. - Exam Vitals: Temp Pulse Resp BP Pulse Ox 99.7 F H 96 16 139/89 95 01/19/19 07:15 01/19/19 07:15 01/19/19 07:15 01/19/19 07:15 01/19/19 07:15 Exam: General: NAD, good eye contact, relatively well appearing Thoracic: Coarse L-sided basilar crackles and diminished lung sounds R base Cardio: Normal S1 and S2, regular rate and rhythm Abdomen: Soft, nontender Extremities: Warm, well perfused. DP pulses 2+ b/l. No edema. Skin: Intact. No rashes, bruises, or ulcers Neuro: Awake, fully oriented. Speech fluent - Summary of Assessment and Plan Summary of Assessment and Plan: Surinder Abel is a 68 M w hx HFpEF, HTN, hypothyroidism, anx/dep, chronic back pain, and recurrent GI bleeds s/p hemicolectomy, who p/w several episodes BRBPR, Hb down to 9, consistent with GI bleed causing acute blood loss anemia. Hospital course c/b persistent bleeding requiring multiple transfusions, and eventual repeat EGD w re-intervention for ulcer. Additional complication of pneumonia and pulmonary edema requiring abx and diuresis. RML PNA causing sepsis: CXR and CT showing RML/RLL infiltrates, worsening hypoxia and confusion, lactate wnl, UAgs negative, pt condition much improved today - BCx pending - empiric zosyn - mrsa nasal swab - RVP Sepsis: Suspected infection as above - BCx x2 pending - UA - CXR, in flu season consider flu swab or RVP - lactate Acute GI bleed: Hx recurrent GI bleeds, and is s/p hernan-colectomy with repeat bleeding ' and 17. This admission underwent EGD/enteroscopy 01/10 showing esophageal polyps and single red spot in stomach treated with APC. Colonoscopy 01/10 and again 01/12 with old blood throughout entire colon but no acute bleeding after extensive washing. Tagged RBC scan 01/11 unable to identify source. Continued bleeding and transfusion requirements, thus repeat EGD/push enteros copy on 01/16 showed nonbleeding cratered gastric ulcer 2cm (possibly site of previous APC) which was cauterized, and a single 5mm nonbleeding angiodysplastic lesion in stomach also cauterized. No further bleeding and Hb stable. - continue PPI bid Acute blood loss anemia: 2/2 above. S/p 8u prbc during admission, last units 01/16, Hb remains stable and pt hemodynamically stable. Maintain T&C, monitor H&H HFpEF and moderate PH: continue home lasix HTN: continue home meds Chronic back pain: continue home meds Hypothyroidism: home synthroid Generalized weakness: PT/OT following Anx/dep: home meds PPx: SCDs FEN: softs, no MIVF Lines: PIV Consults: GI Code: Full Dispo: inpatient, monitor over weekend to ensure no bleeding and PNA improves, likely d/c Tuesday to bed Internal Medicine: Result - Labs CBC & Chem 7: 01/19/19 04:39 01/19/19 04:39 Labs: Short CBC 01/18/19 01/19/19 Range/Units 17:12 04:39 WBC 15.4 H 15.1 H (4.3-11.1) K/mcL Hgb 9.8 L 9.5 L (12.9-16.9) g/dL Hct 29.8 L 29.8 L (37.5-50.1) % Plt Count 187 207 (140-400) K/mcL BMP 01/18/19 01/19/19 17:12 04:39 Sodium 135 L 137 Potassium 3.3 L 3.8 Chloride 94 L 96 L Carbon Dioxide 34 H 33 H BUN 9 11 Creatinine 0.63 L 0.64 L Glucose 143 H 123 H Calcium 8.1 L 8.2 L Cardiac Enzymes 01/18/19 Range/Units 17:12 Troponin I < 0.03 (< 0.04) ng/mL Liver Function 01/19/19 Range/Units 04:39 Total Bilirubin 0.7 (0.3-1.0) mg/dL Direct Bilirubin 0.2 (0.0-0.2) mg/dL AST 14 (13-39) Units/L ALT 4 L (7-52) Units/L Alkaline Phosphatase 61 (34-104) Units/L Albumin 2.6 L (3.5-5.7) g/dL - ABG Interpretation ABG results: PT/INR, D-dimer PT 14.1 Seconds (9.4-12.1) H 01/19/19 04:39 - Impressions Impressions Chest X-Ray 01/18/19 13:20 IMPRESSION: 1. New right lung base infiltrate, concerning for pneumonia. Follow-up radiographs are recommended to ensure resolution. D/ / Christopher Ramirez MD / Christopher Ramirez MD Interpreting Provider: Christopher Ramirez MD Head CT 01/18/19 15:03 IMPRESSION: No acute intracranial hemorrhage. 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 No acute infarct. D/ / Marquis Robertson MD / Marquis Robertson MD Interpreting Provider: Marquis Robertson MD Chest CT 01/18/19 15:22 IMPRESSION: 1. New superior segment right lower lobe consolidation with some underlying air bronchograms, new small right pleural effusion and new larger extensive masslike consolidation in the middle lobe with surrounding ground-glass attenuation and some underlying cavitary areas. Findings suggestive of multifocal pneumonia. Please correlate clinically. Follow-up to resolution advised. 2. Prominence of pulmonary trunk noted which can be seen in pulmonary hypertension. 3. Emphysema and scattered bronchiectasis unchanged. D/ / Marquis Robertson MD / Marquis Robertson MD Interpreting Provider: Marquis Robertson MD Consult Discharge Plan - Plan [facility]errals: [facility] [Primary Care Provider] - 01/18/19 3:00 pm Cuate Adam MD [Partnered Physician] - (sent web request on 01-10-19 @ [id number])
[2019-01-19] MEDS: Azithromycin 250 MG TABLET PO SCH (11:44)
[2019-01-19] MEDS: SPIRIVA IH SCH (11:46)
[2019-01-19] MEDS: Budesonide/Formoterol 160/4.5 1 PUFF INH IH SCH ×2 (11:46→21:14)
[2019-01-19 18:08] LABS: Adenovirus Not Detected (Not Detect); Bordetella Pertussis Not Detected (Not Detect); Chlamydophila pneumoniae Not Detected (Not Detect); Coronavirus 229E Not Detected (Not Detect); Coronavirus HKU1 Not Detected (Not Detect); Coronavirus NL63 Not Detected (Not Detect); Coronavirus OC43 Not Detected (Not Detect); Human Metapneumovirus Not Detected (Not Detect); Human Rhinovirus/Enterovirus Not Detected (Not Detect); Influenza A Subtype 2009 H1 Not Detected (Not Detect); Influenza A Untypeable Not Detected (Not Detect); Influenza B Not Detected (Not Detect); Mycoplasma pneumoniae Not Detected (Not Detect); Parainfluenza Virus 1 Not Detected (Not Detect); Parainfluenza Virus 2 Not Detected (Not Detect); Parainfluenza Virus 3 Not Detected (Not Detect); Parainfluenza Virus 4 Not Detected (Not Detect); Respiratory Syncytial Virus Not Detected (Not Detect)
[2019-01-19 20:24] LABS: Hematocrit 29.5 % (37.5-50.1); Hemoglobin 9.5 g/dL (12.9-16.9)
[2019-01-19] MEDS: Levalbuterol Neb 1.25 MG/3 ML IH SCH ×2 (21:14→21:25)
[2019-01-20] MEDS: Levalbuterol Neb 1.25 MG/3 ML IH SCH ×4 (03:35→22:22)
[2019-01-20] MEDS: Levothyroxine 25 MCG TABLET PO SCH (05:28)
[2019-01-20] MEDS: Morphine Sulfate ER (12 HR) 15 MG TABLET.ER PO SCH ×2 (05:28→18:30)
[2019-01-20 05:45] LABS: Basophils % 0.1 %; Eosinophils # 0.2 K/mcL (0.0-0.6); Eosinophils % 0.9 %; Hematocrit 29.4 % (37.5-50.1); Hemoglobin 9.3 g/dL (12.9-16.9); Immature Granulocytes % 1.1 % (0-4); Lymphocytes # 0.8 K/mcL (0.6-4.6); Lymphocytes % 4.9 %; Mean Corpuscular HGB Conc 31.6 g/dL (31.6-35.5); Mean Corpuscular Hemoglobin 29.2 pg (28.0-33.3); Mean Corpuscular Volume 92.2 fL (83.0-100.0); Mean Platelet Volume 10.6 fL (9.4-12.4); Monocytes # 1.2 K/mcL (0.0-1.3); Monocytes % 7.1 %; Neutrophils # 14.5 K/mcL (1.6-8.9); Platelet Count 242 K/mcL (140-400); Red Blood Count 3.19 M/mcL (4.19-5.50); Red Cell Distribution Width 14.1 % (11.5-14.5); Segmented Neutrophils % 85.9 %; White Blood Count 16.9 K/mcL (4.3-11.1)
[2019-01-20 06:03] LABS: BUN/Creatinine Ratio 21 (6-26); Blood Urea Nitrogen 15 mg/dL (8-23); Carbon Dioxide 33 mEq/L (23-29); Chloride 95 mEq/L (98-107); Glucose 113 mg/dL (70-105); Magnesium 2.1 mg/dL (1.6-2.6); Osmolality,Calculated 286 (280-300); Potassium 3.7 mEq/L (3.5-5.1); Sodium 137 mEq/L (136-145); eGFR For African Americans > 60 (> 60); eGFR For Non-African Americans > 60 (> 60)
--- NOTE | 2019-01-20 08:19 | Internal Med Progress Note ---
Hospitalist Progress Note - Encounter Date of Encounter: 01/20/19 Time of Encounter: 08:19 - Subjective Interval History: Pt again today feels wiped out/tired. Did not get out of bed much yesterday, and only drank a little including one ensure. Denies abd pain, N/V. Did have one liquid BM last evening which was dark concerning for some old blood. Breathing is good, no SOB. - Exam Vitals: Temp Pulse Resp BP Pulse Ox 99.2 F 106 15 139/82 98 01/20/19 06:33 01/20/19 06:33 01/20/19 06:33 01/20/19 06:33 01/20/19 06:33 Exam: General: NAD, good eye contact, tired appearing Thoracic: Coarse L-sided basilar crackles and diminished lung sounds R base Cardio: Normal S1 and S2, regular rate and rhythm Abdomen: Soft, nontender Extremities: Warm, well perfused. DP pulses 2+ b/l. No edema. Skin: Intact. No rashes, bruises, or ulcers Neuro: Awake, fully oriented. Speech fluent - Summary of Assessment and Plan Summary of Assessment and Plan: Surinder Abel is a 68 M w hx HFpEF, HTN, hypothyroidism, anx/dep, chronic back lazara n, and recurrent GI bleeds s/p hemicolectomy, who p/w several episodes BRBPR, Hb down to 9, consistent with GI bleed causing acute blood loss anemia. Hospital course c/b persistent bleeding requiring multiple transfusions, and eventual repeat EGD w re-intervention for ulcer. Additional complication of pneumonia and pulmonary edema requiring abx and diuresis. RML PNA causing sepsis: CXR and CT showing RML/RLL infiltrates. Condition improving, no longer confused, still requiring 4L over home 2. Nasal MRSA swab negative, RVP negative. - BCx pending - empiric zosyn Sepsis: still SIRS 2/4, PNA - BCx x2 pending Acute on chronic hypoxic respiratory failure: O2 as above, home 2L Deconditioning: encourage movement and nutritional supplements Acute GI bleed: Hx recurrent GI bleeds, and is s/p hernan-colectomy with repeat bleeding '16 and 17. This admission underwent EGD/enteroscopy 01/10 showing esophageal polyps and single red spot in stomach treated with APC. Colonoscopy 01/10 and again 01/12 with old blood throughout entire colon but no acute bleeding after extensive washing. Tagged RBC scan 01/11 unable to identify source. Continued bleeding and transfusion requirements, thus repeat EGD/push enteroscopy on 01/16 showed nonbleeding cratered gastric ulcer 2cm (possibly site of previous APC) which was cauterized, and a single 5mm nonbleeding angiodysplastic lesion in stomach also cauterized. No further bleeding and Hb stable. - continue PPI bid Acute blood loss anemia: s/p 8u prbc during admission, last units 01/16, Hb remains stable COPD: not in acute exacerbation, home inhalers HFpEF and moderate PH: continue home lasix HTN: continue home meds Chronic back pain: continue home meds Hypothyroidism: home synthroid Generalized weakness: PT/OT following Anx/dep: home meds PPx: SCDs FEN: softs, no MIVF Lines: PIV Consults: GI Code: Full Dispo: inpatient, monitor over weekend to ensure no bleeding and PNA improves, likely d/c Tuesday to bed Internal Medicine: Result - Labs CBC & Chem 7: 01/20/19 04:24 01/20/19 04:24 Labs: Short CBC 01/19/19 01/20/19 Range/Units 20:13 04:24 WBC 16.9 H (4.3-11.1) K/mcL Hgb 9.5 L 9.3 L (12.9-16.9) g/dL Hct 29.5 L 29.4 L (37.5-50.1) % Plt Count 242 (140-400) K/mcL Neutrophils # 14.5 H (1.6-8.9) K/mcL BMP 01/20/19 04:24 Sodium 137 Potassium 3.7 Chloride 95 L Carbon Dioxide 33 H BUN 15 Creatinine 0.70 Glucose 113 H Calcium 8.0 L - ABG Interpretation ABG results: PT/INR, D-dimer PT 14.1 Seconds (9.4-12.1) H 01/19/19 04:39 - VTE Documentation of Mechanical Device: Intermittent pneumatic compression device Consult Discharge Plan - Plan [facility]errals: [facility] [Primary Care Provider[facility] - 01/18/19 3:00 pm Cuate Adam MD [Partnered Physician] - (sent web request on 01-10-19 @ [phone])
[2019-01-20] MEDS: Metoprolol XL (24 HR) Succ 25 MG TAB.ER.24H PO SCH (08:49)
[2019-01-20] MEDS: Lactobacillus 1 EACH CAP.SPRINK PO SCH (08:49)
[2019-01-20] MEDS: Furosemide 40 MG TABLET PO SCH (08:49)
[2019-01-20] MEDS: Sucralfate 1 GM TABLET PO SCH ×4 (08:49→22:11)
[2019-01-20] MEDS: Cholecalciferol (D-3) 1,000 UNIT TABLET PO SCH (08:49)
[2019-01-20] MEDS: Piperacillin/Tazobactam 3.375 GM in 0.9 % Sodium Chloride Mini Bag 100 ML IVPB SCH ×2 (08:58→15:24)
[2019-01-20] MEDS: Budesonide/Formoterol 160/4.5 1 PUFF INH IH SCH ×2 (10:40→22:23)
[2019-01-20] MEDS: SPIRIVA IH SCH (10:40)
[2019-01-20] MEDS: Pantoprazole 40 MG VIAL IVP SCH ×2 (11:14)
--- NOTE | 2019-01-20 14:13 | Electrocardiograph Report ---
[place] [id number] Test Date: 2019-01-19 Pat Name: Surinder Abel Department: 111 Room: [facility] Gender: M Supervisor Refining: : [id number] Requested By: Rene Hughes Order Number: [id number] Reading MD: Chan Ramirez Measurements Intervals [place] Rate: 114 P: 66 MI: 148 QRS: 22 QRSD: 93 T: 31 QT: 343 QTc: 411 Interpretive Statements SINUS TACHYCARDIA WITH VENTRICULAR PREMATURE COMPLEXES Electronically Signed On 01-20-2019 14:11:54 EDT by Chan Ramirez
[2019-01-20] MEDS: Acetaminophen 325 MG TABLET PO PRN ×2 (15:23→22:03)
[2019-01-21] MEDS: Piperacillin/Tazobactam 3.375 GM in 0.9 % Sodium Chloride Mini Bag 100 ML IVPB SCH ×4 (00:37→23:15)
[2019-01-21] MEDS: Pantoprazole 40 MG VIAL IVP SCH ×2 (00:38→12:11)
[2019-01-21] MEDS: Levalbuterol Neb 1.25 MG/3 ML IH SCH ×4 (03:42→21:27)
[2019-01-21] MEDS: Morphine Sulfate ER (12 HR) 15 MG TABLET.ER PO SCH ×2 (05:41→17:08)
[2019-01-21] MEDS: Levothyroxine 25 MCG TABLET PO SCH (05:42)
[2019-01-21 06:44] LABS: Hematocrit 27.6 % (37.5-50.1); Hemoglobin 8.8 g/dL (12.9-16.9); Mean Corpuscular HGB Conc 31.9 g/dL (31.6-35.5); Mean Corpuscular Hemoglobin 29.6 pg (28.0-33.3); Mean Corpuscular Volume 92.9 fL (83.0-100.0); Mean Platelet Volume 10.4 fL (9.4-12.4); Platelet Count 281 K/mcL (140-400); Red Blood Count 2.97 M/mcL (4.19-5.50); White Blood Count 15.6 K/mcL (4.3-11.1)
[2019-01-21] MEDS: Acetaminophen 325 MG TABLET PO PRN ×2 (06:57→21:08)
[2019-01-21 07:10] LABS: BUN/Creatinine Ratio 20 (6-26); Blood Urea Nitrogen 13 mg/dL (8-23); Carbon Dioxide 34 mEq/L (23-29); Chloride 94 mEq/L (98-107); Glucose 127 mg/dL (70-105); Osmolality,Calculated 284 (280-300); Potassium 3.5 mEq/L (3.5-5.1); Sodium 136 mEq/L (136-145); eGFR For African Americans > 60 (> 60); eGFR For Non-African Americans > 60 (> 60)
--- NOTE | 2019-01-21 07:52 | Internal Med Progress Note ---
Hospitalist Progress Note - Encounter Date of Encounter: 01/21/19 Time of Encounter: 07:52 - Subjective Interval History: Pt states he felt ill this AM due to having a fever, but tylenol brought it down and has not recurred. Got up to chair for a bit already this AM. Drank two shakes yesterday and says he'll drink more today. No further black bowel move ments. Breathing is still a bit short with exertion requiring 4L. - Exam Vitals: Temp Pulse Resp BP Pulse Ox 100.8 F H 106 14 129/74 93 01/21/19 06:51 01/21/19 06:51 01/21/19 06:51 01/21/19 06:51 01/21/19 06:51 Exam: General: NAD, good eye contact, actually appears better today despite statements otherwise Thoracic: Coarse L-sided basilar crackles and today has rhonchi/squeaking R base Cardio: Normal S1 and S2, regular rate and rhythm Abdomen: Soft, nontender Extremities: Warm, well perfused. DP pulses 2+ b/l. No edema. Skin: Intact. No rashes, bruises, or ulcers Neuro: Awake, fully oriented. Speech fluent - Summary of Assessment and Plan Summary of Assessment and Plan: Surinder Abel is a 68 M w hx HFpEF, HTN, hypothyroidism, anx/dep, chronic back pain, and recurrent GI bleeds s/p hemicolectomy, who p/w several episodes BRBPR, Hb down to 9, consistent with GI bleed causing acute blood loss anemia. Hospital course c/b persistent bleeding requiring multiple transfusions, and eventual repeat EGD w re-intervention for ulcer. Additional complication of pneumonia and pulmonary edema requiring abx and diuresis. Pt deconditioned and will benefit from swing bed. RML/RLL PNA: CXR and CT showing RML/RLL infiltrates. Nasal MRSA swab negative, RVP negative. Still febrile overnight - BCx ngtd - continue empiric zosyn Sepsis: resolved Acute on chronic hypoxic respiratory failure: requiring 4L here whereas home is 2L Deconditioning: encourage movement and nutritional supplements GI bleed: Hx recurrent GI bleeds, and is s/p hernan-colectomy with repeat bleeding ' and . This admission underwent EGD/enteroscopy 01/10 showing esophageal polyps and single red spot in stomach treated with APC. Continued bleeding and transfusion requirements, thus repeat EGD/push enteroscopy on 01/16 showed two nonbleeding lesions which were cauterized. No further bleeding and Hb stable. - continue PPI bid Acute blood loss anemia: s/p 8u prbc during admission, last units 01/16, Hb remains stable COPD: not in acute exacerbation, home inhalers HFpEF and moderate PH: continue home lasix HTN: continue home meds Chronic back pain: continue home meds Hypothyroidism: home synthroid Generalized weakness: PT/OT following Anx/dep: home meds PPx: SCDs FEN: softs, no MIVF Lines: PIV Consults: GI Code: Full Dispo: inpatient, monitor over weekend to ensure no bleeding and PNA improves, likely d/c in 1-2 days to swing bed Internal Medicine: Result - Labs CBC & Chem 7: 01/21/19 06:24 01/21/19 06:24 Labs: Short CBC 01/21/19 Range/Units 06:24 WBC 15.6 H (4.3-11.1) K/mcL Hgb 8.8 L (12.9-16.9) g/dL Hct 27.6 L (37.5-50.1) % Plt Count 281 (140-400) K/mcL BMP 01/21/19 06:24 Sodium 136 Potassium 3.5 Chloride 94 L Carbon Dioxide 34 H BUN 13 Creatinine 0.64 L Glucose 127 H Calcium 8.0 L - ABG Interpretation ABG results: PT/INR, D-dimer PT 14.1 Seconds (9.4-12.1) H 01/19/19 04:39 - VTE Documentation of Mechanical Device: Intermittent pneumatic compression device Consult Discharge Plan - Plan [facility]errals: [facility] [Primary Care Provider] - 01/18/19 3:00 pm Cuate Adam MD [Partnered Physician] - (sent web request on 01-10-19 @ 1616)
[2019-01-21] MEDS: Cholecalciferol (D-3) 1,000 UNIT TABLET PO SCH (08:50)
[2019-01-21] MEDS: Furosemide 40 MG TABLET PO SCH (08:50)
[2019-01-21] MEDS: Sucralfate 1 GM TABLET PO SCH ×4 (08:50→21:09)
[2019-01-21] MEDS: Lactobacillus 1 EACH CAP.SPRINK PO SCH (08:50)
[2019-01-21] MEDS: Metoprolol XL (24 HR) Succ 25 MG TAB.ER.24H PO SCH (08:51)
[2019-01-21] MEDS: Budesonide/Formoterol 160/4.5 1 PUFF INH IH SCH ×2 (10:57→21:27)
[2019-01-21] MEDS: SPIRIVA IH SCH (10:58)
[2019-01-21] MEDS: Ondansetron 4 MG/2 ML VIAL IVP PRN (17:13)
[2019-01-22] MEDS: Pantoprazole 40 MG VIAL IVP SCH ×2 (00:35→12:27)
[2019-01-22] MEDS ORDERED: Mirtazapine 15 MG TABLET PO SCH (01:00)
[2019-01-22] MEDS: Levalbuterol Neb 1.25 MG/3 ML IH SCH ×2 (04:15→09:22)
[2019-01-22] MEDS: Levothyroxine 25 MCG TABLET PO SCH (05:25)
[2019-01-22] MEDS: Morphine Sulfate ER (12 HR) 15 MG TABLET.ER PO SCH (05:25)
[2019-01-22 07:38] LABS: Hematocrit 28.4 % (37.5-50.1); Hemoglobin 8.6 g/dL (12.9-16.9); Mean Corpuscular HGB Conc 30.3 g/dL (31.6-35.5); Mean Corpuscular Hemoglobin 28.2 pg (28.0-33.3); Mean Corpuscular Volume 93.1 fL (83.0-100.0); Mean Platelet Volume 11.8 fL (9.4-12.4); Platelet Count 233 K/mcL (140-400); Red Blood Count 3.05 M/mcL (4.19-5.50); Red Cell Distribution Width 14.3 % (11.5-14.5); White Blood Count 10.8 K/mcL (4.3-11.1)
[2019-01-22] MEDS: Sucralfate 1 GM TABLET PO SCH ×2 (07:41→11:30)
[2019-01-22] MEDS: Furosemide 40 MG TABLET PO SCH (07:41)
[2019-01-22] MEDS: Lactobacillus 1 EACH CAP.SPRINK PO SCH (07:41)
[2019-01-22] MEDS: Metoprolol XL (24 HR) Succ 25 MG TAB.ER.24H PO SCH (07:41)
[2019-01-22] MEDS: Cholecalciferol (D-3) 1,000 UNIT TABLET PO SCH (07:42)
[2019-01-22] MEDS: Piperacillin/Tazobactam 3.375 GM in 0.9 % Sodium Chloride Mini Bag 100 ML IVPB SCH (07:42)
[2019-01-22 07:45] VITALS: BP 146/84
[2019-01-22 07:55] LABS: BUN/Creatinine Ratio 16 (6-26); Blood Urea Nitrogen 11 mg/dL (8-23); Calcium 8.2 mg/dL (8.6-10.3); Carbon Dioxide 32 mEq/L (23-29); Chloride 95 mEq/L (98-107); Glucose 103 mg/dL (70-105); Osmolality,Calculated 280 (280-300); Potassium 3.6 mEq/L (3.5-5.1); Sodium 135 mEq/L (136-145); eGFR For African Americans > 60 (> 60); eGFR For Non-African Americans > 60 (> 60)
--- NOTE | 2019-01-22 07:58 | Discharge Summary ---
- NOTES TO OUTPATIENT PROVIDER Notes to Outpatient Provider: S/p GI bleed, please recheck Hb (on d/c 8.6) Date of Encounter: 01/22/19 Time of Encounter: 07:56 Hospital course: Dear Doctors, I recently had the opportunity to care for this patient during their recent hospital stay at [facility]. Surinder Abel is a 68 M w hx HFpEF, HTN, hypothyroidism, anx/dep, chronic back pain, and recurrent GI bleeds s/p hemicolectomy, who presented at time of admission on 01/10/2019 with several episodes BRBPR. In the ED, patient's Hb was acutely already down to 9, consistent with GI bleed causing acute blood loss anemia. Pt type&crossed, given fluids, GI alerted, and admitted. In the hospital, GI took patient for EGD/enteroscopy 01/10 showing esophageal polyps and single red spot in stomach treated with APC. Colonoscopy 01/10 and again 01/12 with old blood throughout entire colon but no acute bleeding after extensive washing. Tagged RBC scan 01/11 unable to identify additional source. Continued bleeding and transfusion requirements, however (total 8u), and thus repeat EGD/push enteroscopy on 01/16 showed nonbleeding cratered gastric ulcer 2cm which was cauterized, and a single 5mm nonbleeding angiodysplastic lesion in stomach also cauterized. No further bleeding and Hb thereafter remained stable. Hospital course complicated by pneumonia and sepsis requiring abx; no source identified and pt de-escalated from zosyn to levaquin after fever and leukocytosis resolved. Pt deconditioned and will benefit from swing bed placement. Dx: Acute blood loss anemia 2/2 bleeding gastric ulcer, hospital acquired pneumonia, sepsis, acute on chronic hypoxic respiratory failure, deconditioning Pertinent tests/consults: GI consultation, two EGDs 01/10 and 01/16, two colonoscopies 01/10 and 01/12, tagged RBC scan 01/11 Follow up: PCP 1 week, GI 3-4 weeks Tests pending: blood cultures ngtd Med changes: - new omeprazole 40 bid - new sucralfate qid - new levaquin 750 daily, last dose 01/27 - decrease lisinopril from 40 to 20 Mental status: awake, fully oriented Code status: [employer] spent on discharge: 35 minutes It has been my pleasure participating in this patient's care. Please contact me with any questions or concerns regarding their hospital stay. Sincerely, Choco York MD - Discharge Medications Prescriptions: New Sucralfate [Carafate] 1 gm PO QIDAC #99 tablet levoFLOXacin [Levaquin] 750 mg PO DAILY #5 tablet Omeprazole [PriLOSEC] 40 mg PO BID #60 cap Continued Budesonide/Formoterol 160/4.5 [Symbicort 160/4.5] 2 puff IH BID Albuterol Neb [Proventil Neb] 2.5 mg IH QID PRN PRN Reason: Shortness Of Breath Gabapentin [Neurontin] 1,200 mg PO HS Gabapentin [Neurontin] 900 mg PO QAM Levothyroxine [Synthroid] 25 mcg PO DAILY L. Acidophilus/Pectin, [place] [Acidophilus Probiotic Capsule] 1 cap PO DAILY Fluticasone Propionate Nasal [Flonase] 2 spray NS DAILY Albuterol Sulfate [Albuterol Inhaler] 2 puff IH Q6HR PRN PRN Reason: Shortness Of Breath guaiFENesin [Guaifenesin] 400 mg PO TID Metoprolol Succinate [Toprol Xl] 12.5 mg PO DAILY Tiotropium [place] [Spiriva Respimat] 2 puff IH DAILY Furosemide [Lasix] 40 mg PO DAILY PRN PRN Reason: Edema Meloxicam [Mobic] 7.5 mg PO BID Escitalopram [Lexapro] 20 mg PO QAM Melatonin [Melatin] 3 mg PO HS Prazosin [Minipress] 5 mg PO QAM Ergocalciferol (VITAMIN D2) [Vitamin D2] 50,000 unit PO FR Atorvastatin [Lipitor] 20 mg PO DAILY Azithromycin [Zithromax] 500 mg PO MOWEFR Benzoyl Peroxide [Bpo] 1 appl TP DAILY PRN PRN Reason: INFECTION/PIMPLE Mirtazapine [Remeron] 15 mg PO HS Gabapentin [Neurontin] 900 mg PO QPM Morphine Sulfate [Arymo ER] 30 mg PO BID 2 Days #4 tab.po.er Changed Lisinopril [Zestril] 20 mg PO DAILY #0 Discontinued predniSONE [PredniSONE] 10 mg PO DAILY Home Medications: Albuterol Neb [Proventil Neb] 2.5 mg IH QID PRN 04/09/16 [History] Budesonide/Formoterol 160/4.5 [Symbicort 160/4.5] 2 puff IH BID 04/09/16 [History] Fluticasone Propionate Nasal [Flonase] 2 spray NS DAILY 04/09/16 [History] Gabapentin [Neurontin] 1,200 mg PO HS 04/09/16 [History] Gabapentin [Neurontin] 900 mg PO QAM 04/09/16 [History] L. Acidophilus/Pectin, [place] [Acidophilus Probiotic Capsule] 1 cap PO DAILY 04/09/16 [History] Levothyroxine [Synthroid] 25 mcg PO DAILY 04/09/16 [History] Albuterol Sulfate [Albuterol Inhaler] 2 puff IH Q6HR PRN 11/30/16 [History] Furosemide [Lasix] 40 mg PO DAILY PRN 09/26/18 [History] Meloxicam [Mobic] 7.5 mg PO BID 09/26/18 [History] Metoprolol Succinate [Toprol Xl] 12.5 mg PO DAILY 09/26/18 [History] Tiotropium [place] [Spiriva Respimat] 2 puff IH DAILY 09/26/18 [History] guaiFENesin [Guaifenesin] 400 mg PO TID 09/26/18 [History] Ergocalciferol (VITAMIN D2) [Vitamin D2] 50,000 unit PO FR 01/09/19 [History] Escitalopram [Lexapro] 20 mg PO QAM 01/09/19 [History] Melatonin [Melatin] 3 mg PO HS 01/09/19 [History] Prazosin [Minipress] 5 mg PO QAM 01/09/19 [History] Atorvastatin [Lipitor] 20 mg PO DAILY 01/11/19 [History] Azithromycin [Zithromax] 500 mg PO MOWEFR 01/11/19 [History] Benzoyl Peroxide [Bpo] 1 appl TP DAILY PRN 01/11/19 [History] Gabapentin [Neurontin] 900 mg PO QPM 01/11/19 [History] Mirtazapine [Remeron] 15 mg PO HS 01/11/19 [History] Lisinopril [Zestril] 20 mg PO DAILY #0 01/22/19 [Rx] Morphine Sulfate [Arymo ER] 30 mg PO BID 2 Days #4 tab.po.er 01/22/19 [Rx] Omeprazole [PriLOSEC] 40 mg PO BID #60 cap 01/22/19 [Rx] Sucralfate [Carafate] 1 gm PO QIDAC #99 tablet 01/22/19 [Rx] levoFLOXacin [Levaquin] 750 mg PO DAILY #5 tablet 01/22/19 [Rx] Allergies/Adverse Reactions: Allergy/AdvReac Type Severity Reaction Status Date / Time No Known Allergies Allergy Verified 01/11/19 10:36 Date of admission: 01/09/19 16:14 Primary care physician: PCP [facility] - Constitutional Vitals: Temp Pulse Resp BP Pulse Ox 99.6 F 94 18 146/84 93 01/22/19 07:41 01/22/19 07:41 01/22/19 07:41 01/22/19 07:41 01/22/19 07:41 Exam: General: NAD, good eye contact, appears comfortable Thoracic: Coarse L-sided basilar crackles and R-sided basilar rhonchi/squeaking Cardio: Normal S1 and S2, regular rate and rhythm Abdomen: Soft, nontender Extremities: Warm, well perfused. DP pulses 2+ b/l. No edema. Skin: Intact. No rashes, bruises, or ulcers Neuro: Awake, fully oriented. Speech fluent - Patient Status Disposition: Transfer Hospital Swing Bed Condition: Fair Functional capacity at discharge: uses cane/walker Overall status at discharge: patient is progressing back to baseline - Discharge Instructions Instructions: Sucralfate (By mouth), Omeprazole (By mouth), Levofloxacin (By mouth), Morphine Sulfate Liposome (Injection), Gastrointestinal Bleeding (DC), Pneumonia (DC) Follow Up With: [facility],PCP [Primary Care Provider] - 01/18/19 3:00 pm Cuate Adam MD [Partnered Physician] - (3-4 weeks) - Diet and Activity Activity: increase activity as tolerated, resume usual activities as tolerated Diet: advance to your usual diet - VTE Documentation of Mechanical Device: Intermittent pneumatic compression device
[2019-01-22] MEDS: Budesonide/Formoterol 160/4.5 1 PUFF INH IH SCH (09:22)
[2019-01-22] MEDS: SPIRIVA IH SCH (11:16)
[2019-01-22] MEDS: Acetaminophen 325 MG TABLET PO PRN (11:30)
[2019-01-22] MEDS: Azithromycin 250 MG TABLET PO SCH (11:31)
[2019-01-22] MEDS ORDERED: levoFLOXacin 750 MG TABLET PO ONE (11:37)
--- NOTE | 2019-01-22 11:52 | Physician Discharge Referral ---
ExtendedCare Referral Info Transfer To: Swing bed Provider in Charge after Transfer: PCP Institutional Level of Care: Skilled - Transfer Medications Prescriptions: Morphine Sulfate [Arymo ER] 30 mg PO BID 2 Days #4 tab.po.er Sucralfate [Carafate] 1 gm PO QIDAC #99 tablet levoFLOXacin [Levaquin] 750 mg PO DAILY #5 tablet Omeprazole [PriLOSEC] 40 mg PO BID #60 cap Home Medications: Albuterol Neb [Proventil Neb] 2.5 mg IH QID PRN 04/09/16 [History] Budesonide/Formoterol 160/4.5 [Symbicort 160/4.5] 2 puff IH BID 04/09/16 [History] Fluticasone Propionate Nasal [Flonase] 2 spray NS DAILY 04/09/16 [History] Gabapentin [Neurontin] 1,200 mg PO HS 04/09/16 [History] Gabapentin [Neurontin] 900 mg PO QAM 04/09/16 [History] L. Acidophilus/Pectin, [place] [Acidophilus Probiotic Capsule] 1 cap PO DAILY 04/09/16 [History] Levothyroxine [Synthroid] 25 mcg PO DAILY 04/09/16 [History] Albuterol Sulfate [Albuterol Inhaler] 2 puff IH Q6HR PRN 11/30/16 [History] Furosemide [Lasix] 40 mg PO DAILY PRN 09/26/18 [History] Meloxicam [Mobic] 7.5 mg PO BID 09/26/18 [History] Metoprolol Succinate [Toprol Xl] 12.5 mg PO DAILY 09/26/18 [History] Tiotropium [place] [Spiriva Respimat] 2 puff IH DAILY 09/26/18 [History] guaiFENesin [Guaifenesin] 400 mg PO TID 09/26/18 [History] Ergocalciferol (VITAMIN D2) [Vitamin D2] 50,000 unit PO FR 01/09/19 [History] Escitalopram [Lexapro] 20 mg PO QAM 01/09/19 [History] Melatonin [Melatin] 3 mg PO HS 01/09/19 [History] Prazosin [Minipress] 5 mg PO QAM 01/09/19 [History] Atorvastatin [Lipitor] 20 mg PO DAILY 01/11/19 [History] Azithromycin [Zithromax] 500 mg PO MOWEFR 01/11/19 [History] Benzoyl Peroxide [Bpo] 1 appl TP DAILY PRN 01/11/19 [History] Gabapentin [Neurontin] 900 mg PO QPM 01/11/19 [History] Mirtazapine [Remeron] 15 mg PO HS 01/11/19 [History] Lisinopril [Zestril] 20 mg PO DAILY #0 01/22/19 [Rx] Morphine Sulfate [Arymo ER] 30 mg PO BID 2 Days #4 tab.po.er 01/22/19 [Rx] Omeprazole [PriLOSEC] 40 mg PO BID #60 cap 01/22/19 [Rx] Sucralfate [Carafate] 1 gm PO QIDAC #99 tablet 01/22/19 [Rx] levoFLOXacin [Levaquin] 750 mg PO DAILY #5 tablet 01/22/19 [Rx] Allergies/Adverse Reactions: Allergy/AdvReac Type Severity Reaction Status Date / Time No Known Allergies Allergy Verified 01/11/19 10:36 - Respiratory Orders Oxygen / L per min (4L) Smoking Cessation: Smoking cessation has been advised. For more information, call the [place] Tobacco Quit Line at 4-709-IGTK-NOW. - Ancillary Orders May use pressure relief devices daily prn, May go on DIMA w/family/respon alliance party w/meds at nurse discretion PRN, May consult with Dentist, Wig Stylist, Paraffin Plant Operator PRN - Advance Directives Code Status: Full Code - Mobility Orders Ambulate - Rehabiliation Orders Rehab Potential: Good Rehab Orders: Evaluation for Physical Therapy, Evaluation for Occupational Therapy - Diet Orders Mechanical Soft CERTIFICATION: I certify that the transfer of the above named patient to an Extended Care Facility is necessary for the continuing treatment of the diagnosis listed. The above information is true and accurate reflection of patient's current condition. Confidential - Redisclosure prohibited without a patient's written consent.
== END 2019-01-22 13:58 | disposition other institution (70) | DRG 377 ==
LOC: EMEROOARM 12:58 → SUATTDRO 16:14 → 2NNU 16:14 → 2NENU 01-16 00:31
PROVIDERS: ADMIT Internal Medicine Nephrology; ATTEND Internal Medicine

== ENCOUNTER 2019-05-13 20:31 | Inpatient (IN) ==
[~2019-05-13 20:31] MED LIST: Albuterol 2.5 MG/3 ML NEBULIZER IH PRN
[2019-05-13] MEDS ORDERED: Isovue-370 500 ML BOTTLE IVP ONE (21:43)
[2019-05-13 22:14] LABS: BUN/Creatinine Ratio 18 (6-26); Blood Urea Nitrogen 18 mg/dL (8-23); Calcium 8.8 mg/dL (8.6-10.3); Carbon Dioxide 30 mEq/L (23-29); Chloride 104 mEq/L (98-107); Glucose 84 mg/dL (70-105); Osmolality,Calculated 295 (280-300); Potassium 4.3 mEq/L (3.5-5.1); Sodium 142 mEq/L (136-145); Troponin I 0.03 ng/mL (< 0.04); eGFR For African Americans > 60 (> 60); eGFR For Non-African Americans > 60 (> 60)
[2019-05-13] MEDS ORDERED: levoFLOXacin 750 MG/150 ML 750 MG/150 ML BAG IVPB ONE (22:56)
[2019-05-13] MEDS ORDERED: Ipratropium/Albuterol Neb 3 ML IH ONE (22:58)
[2019-05-13] MEDS ORDERED: methylPREDNISolone 125 MG/2 ML VIAL IVP ONE (22:58)
[2019-05-13 23:02] LABS: Basophils % 0.2 %; Eosinophils # 0.2 K/mcL (0.0-0.6); Eosinophils % 1.5 %; Hematocrit 36.3 % (37.5-50.1); Immature Granulocytes % 0.4 % (0-4); Immature Platelets 6.1 % (1.1-6.1); Lymphocytes # 1.3 K/mcL (0.6-4.6); Lymphocytes % 10.4 %; Mean Corpuscular HGB Conc 30.3 g/dL (31.6-35.5); Mean Corpuscular Hemoglobin 28.4 pg (28.0-33.3); Mean Corpuscular Volume 93.8 fL (83.0-100.0); Mean Platelet Volume 10.9 fL (9.4-12.4); Monocytes # 0.9 K/mcL (0.0-1.3); Monocytes % 7.3 %; Neutrophils # 9.9 K/mcL (1.6-8.9); Platelet Count 157 K/mcL (140-400); Red Blood Count 3.87 M/mcL (4.19-5.50); Red Cell Distribution Width 14.5 % (11.5-14.5); Segmented Neutrophils % 80.2 %; White Blood Count 12.4 K/mcL (4.3-11.1)
[2019-05-13] MEDS ORDERED: Naloxone 0.4 MG/ML INJ IVP PRN (23:30)
[2019-05-13] MEDS ORDERED: BENZOYL PEROXIDE APPL TP PRN (23:37)
[2019-05-13] MEDS ORDERED: Furosemide 40 MG TABLET PO PRN (23:37)
[2019-05-14] MEDS: Ipratropium/Albuterol Neb 3 ML IH SCH ×6 (04:25→23:07)
[2019-05-14] MEDS: Levothyroxine 25 MCG TABLET PO SCH (04:35)
[2019-05-14 04:41] LABS: Basophils % 0.3 %; Eosinophils # 0.1 K/mcL (0.0-0.6); Eosinophils % 0.6 %; Hematocrit 37.4 % (37.5-50.1); Hemoglobin 11.3 g/dL (12.9-16.9); Immature Granulocytes % 0.4 % (0-4); Lymphocytes # 0.7 K/mcL (0.6-4.6); Lymphocytes % 6.3 %; Mean Corpuscular HGB Conc 30.2 g/dL (31.6-35.5); Mean Corpuscular Hemoglobin 28.7 pg (28.0-33.3); Mean Corpuscular Volume 94.9 fL (83.0-100.0); Mean Platelet Volume 11.6 fL (9.4-12.4); Monocytes # 0.2 K/mcL (0.0-1.3); Monocytes % 1.9 %; Neutrophils # 9.4 K/mcL (1.6-8.9); Platelet Count 159 K/mcL (140-400); Red Blood Count 3.94 M/mcL (4.19-5.50); Red Cell Distribution Width 14.6 % (11.5-14.5); Segmented Neutrophils % 90.5 %; White Blood Count 10.4 K/mcL (4.3-11.1)
[2019-05-14 04:45] LABS: INR 1.1
[2019-05-14 04:48] LABS: Activated Partial Thrombo Time 26.9 Seconds (26.0-36.0)
[2019-05-14 05:01] LABS: Alanine Aminotransferase 9 Units/L (7-52); Albumin 3.6 g/dL (3.5-5.7); Albumin/Globulin Ratio 1.3 (1.1-2.2); Alkaline Phosphatase 96 Units/L (34-104); Aspartate Amino Transferase 14 Units/L (13-39); BUN/Creatinine Ratio 19 (6-26); Bilirubin,Total 0.4 mg/dL (0.3-1.0); Blood Urea Nitrogen 16 mg/dL (8-23); Calcium 8.6 mg/dL (8.6-10.3); Carbon Dioxide 27 mEq/L (23-29); Chloride 104 mEq/L (98-107); Globulin 2.7 g/dL (2.4-3.5); Glucose 128 mg/dL (70-105); Osmolality,Calculated 287 (280-300); Potassium 4.3 mEq/L (3.5-5.1); Sodium 137 mEq/L (136-145); Total Protein 6.3 g/dL (6.4-8.9); eGFR For African Americans > 60 (> 60); eGFR For Non-African Americans > 60 (> 60)
[2019-05-14] MEDS ORDERED: MethylPREDNISolone 40 MG/ML VIAL IVP SCH (06:00)
[2019-05-14] MEDS: Metoprolol XL (24 HR) Succ 25 MG TAB.ER.24H PO SCH (08:11)
[2019-05-14] MEDS: Gabapentin 300 MG CAPSULE PO SCH ×2 (08:11→17:47)
[2019-05-14] MEDS: Lisinopril 20 MG TABLET PO SCH (08:12)
[2019-05-14] MEDS: Cholecalciferol (D-3) 1,000 UNIT (25MCG) TABLET PO SCH (08:12)
[2019-05-14] MEDS ORDERED: Diltiazem CD (24hr) 120 MG CAPSULE PO SCH (12:08)
[2019-05-14] MEDS: Diltiazem CD (24hr) 120 MG CAPSULE PO SCH (12:29)
[2019-05-14] MEDS: cefTRIAXone 1,000 MG in Water for inj. (sterile) 10 ML IVP SCH (12:29)
[2019-05-14] MEDS: Azithromycin 500 MG in 0.9 % Sodium Chloride 250 ML IVPB SCH (12:30)
[2019-05-14] MEDS ORDERED: GuaiFENesin Liq 200 MG/10 ML UDC PO PRN (13:49)
[2019-05-14] MEDS ORDERED: *HR* Heparin 5,000 UNIT/ML VIAL IVP PRN (17:32)
[2019-05-14] MEDS ORDERED: *HR* Heparin 5,000 UNIT/ML VIAL IVP ONE ×2 (17:32→20:45)
[2019-05-14] MEDS: predniSONE 20 MG TABLET PO SCH (17:46)
[2019-05-14 18:25] LABS: Hematocrit 37.8 % (37.5-50.1); Hemoglobin 11.6 g/dL (12.9-16.9); Mean Corpuscular HGB Conc 30.7 g/dL (31.6-35.5); Mean Corpuscular Hemoglobin 28.6 pg (28.0-33.3); Mean Corpuscular Volume 93.3 fL (83.0-100.0); Mean Platelet Volume 11.3 fL (9.4-12.4); Platelet Count 178 K/mcL (140-400); Red Blood Count 4.05 M/mcL (4.19-5.50); Red Cell Distribution Width 14.6 % (11.5-14.5); White Blood Count 11.9 K/mcL (4.3-11.1)
[2019-05-14 18:33] LABS: INR 1.1; Prothrombin Time 12.8 Seconds (9.4-12.1)
[2019-05-14 18:35] LABS: Activated Partial Thrombo Time 26.6 Seconds (26.0-36.0)
[2019-05-14] MEDS: Gabapentin 400 MG CAPSULE PO SCH (20:38)
[2019-05-14] MEDS: Heparin 25,000 UNIT/250 ML D5W 25,000 UNIT/250 ML IV.SOLN IVC SCH (20:38)
[2019-05-14] MEDS: Mirtazapine 15 MG TABLET PO SCH (20:38)
[2019-05-14] MEDS ORDERED: traMADol 50 MG TABLET PO PRN (20:48)
[2019-05-15] MEDS: Ipratropium/Albuterol Neb 3 ML IH SCH ×6 (03:41→23:55)
[2019-05-15 04:48] LABS: Hematocrit 35.2 % (37.5-50.1); Hemoglobin 10.6 g/dL (12.9-16.9); Immature Granulocytes % 0.6 % (0-4); Lymphocytes # 0.5 K/mcL (0.6-4.6); Lymphocytes % 3.7 %; Mean Corpuscular HGB Conc 30.1 g/dL (31.6-35.5); Mean Corpuscular Volume 93.1 fL (83.0-100.0); Mean Platelet Volume 11.6 fL (9.4-12.4); Monocytes # 0.7 K/mcL (0.0-1.3); Neutrophils # 12.7 K/mcL (1.6-8.9); Platelet Count 177 K/mcL (140-400); Red Blood Count 3.78 M/mcL (4.19-5.50); Red Cell Distribution Width 14.6 % (11.5-14.5); Segmented Neutrophils % 90.7 %
[2019-05-15 05:05] LABS: BUN/Creatinine Ratio 23 (6-26); Blood Urea Nitrogen 22 mg/dL (8-23); Calcium 8.8 mg/dL (8.6-10.3); Carbon Dioxide 28 mEq/L (23-29); Chloride 102 mEq/L (98-107); Glucose 192 mg/dL (70-105); Magnesium 2.2 mg/dL (1.6-2.6); Osmolality,Calculated 297 (280-300); Phosphorous 3.1 mg/dL (2.7-4.5); Potassium 3.9 mEq/L (3.5-5.1); Sodium 139 mEq/L (136-145); eGFR For African Americans > 60 (> 60); eGFR For Non-African Americans > 60 (> 60)
[2019-05-15] MEDS: Levothyroxine 25 MCG TABLET PO SCH (05:09)
[2019-05-15] MEDS: *HR* Heparin 5,000 UNIT/ML VIAL IVP PRN ×2 (05:09→18:29)
[2019-05-15] MEDS: Tiotropium 18 MCG inhalation IH SCH (07:46)
[2019-05-15] MEDS: Metoprolol XL (24 HR) Succ 25 MG TAB.ER.24H PO SCH (08:10)
[2019-05-15] MEDS: Gabapentin 300 MG CAPSULE PO SCH ×2 (08:12→16:19)
[2019-05-15] MEDS: predniSONE 20 MG TABLET PO SCH ×2 (08:13→16:19)
[2019-05-15] MEDS: Diltiazem CD (24hr) 120 MG CAPSULE PO SCH (08:13)
[2019-05-15] MEDS: Lisinopril 20 MG TABLET PO SCH (08:13)
[2019-05-15] MEDS: Cyanocobalamin (B-12) 1,000 MCG TABLET PO SCH (08:13)
[2019-05-15] MEDS: Cholecalciferol (D-3) 1,000 UNIT (25MCG) TABLET PO SCH (08:13)
[2019-05-15] MEDS: cefTRIAXone 1,000 MG in Water for inj. (sterile) 10 ML IVP SCH (08:13)
[2019-05-15] MEDS: Azithromycin 500 MG in 0.9 % Sodium Chloride 250 ML IVPB SCH (08:14)
[2019-05-15] MEDS: Gabapentin 400 MG CAPSULE PO SCH (21:13)
[2019-05-15] MEDS: Mirtazapine 15 MG TABLET PO SCH (21:13)
[2019-05-15] MEDS: Heparin 25,000 UNIT/250 ML D5W 25,000 UNIT/250 ML IV.SOLN IVC SCH (21:15)
[2019-05-15] MEDS ORDERED: Morphine Sulfate ER (12 HR) 15 MG TABLET.ER PO ONE (22:30)
[2019-05-16 01:14] LABS: Hematocrit 34.5 % (37.5-50.1); Hemoglobin 10.6 g/dL (12.9-16.9); Immature Granulocytes % 0.4 % (0-4); Lymphocytes # 0.6 K/mcL (0.6-4.6); Lymphocytes % 3.7 %; Mean Corpuscular HGB Conc 30.7 g/dL (31.6-35.5); Mean Corpuscular Hemoglobin 29.2 pg (28.0-33.3); Mean Platelet Volume 11.3 fL (9.4-12.4); Monocytes # 0.6 K/mcL (0.0-1.3); Monocytes % 4.3 %; Neutrophils # 13.7 K/mcL (1.6-8.9); Platelet Count 160 K/mcL (140-400); Red Blood Count 3.63 M/mcL (4.19-5.50); Red Cell Distribution Width 14.8 % (11.5-14.5); Segmented Neutrophils % 91.6 %
[2019-05-16 01:37] LABS: BUN/Creatinine Ratio 24 (6-26); Blood Urea Nitrogen 25 mg/dL (8-23); Calcium 8.8 mg/dL (8.6-10.3); Carbon Dioxide 27 mEq/L (23-29); Chloride 106 mEq/L (98-107); Glucose 186 mg/dL (70-105); Magnesium 2.2 mg/dL (1.6-2.6); Osmolality,Calculated 297 (280-300); Potassium 3.9 mEq/L (3.5-5.1); Sodium 139 mEq/L (136-145); eGFR For African Americans > 60 (> 60); eGFR For Non-African Americans > 60 (> 60)
[2019-05-16 01:40] LABS: Phosphorous 2.9 mg/dL (2.7-4.5)
[2019-05-16] MEDS: Ipratropium/Albuterol Neb 3 ML IH SCH ×3 (03:30→11:04)
[2019-05-16] MEDS: Levothyroxine 25 MCG TABLET PO SCH (05:51)
[2019-05-16 07:05] VITALS: BP 133/77
[2019-05-16] MEDS: Tiotropium 18 MCG inhalation IH SCH (08:00)
[2019-05-16] MEDS: Cholecalciferol (D-3) 1,000 UNIT (25MCG) TABLET PO SCH (08:27)
[2019-05-16] MEDS: Gabapentin 300 MG CAPSULE PO SCH (08:27)
[2019-05-16] MEDS: predniSONE 20 MG TABLET PO SCH (08:28)
[2019-05-16] MEDS: Metoprolol XL (24 HR) Succ 25 MG TAB.ER.24H PO SCH (08:28)
[2019-05-16] MEDS: Diltiazem CD (24hr) 120 MG CAPSULE PO SCH (08:28)
[2019-05-16] MEDS: Cyanocobalamin (B-12) 1,000 MCG TABLET PO SCH (08:29)
[2019-05-16] MEDS: Lisinopril 20 MG TABLET PO SCH (08:29)
[2019-05-16] MEDS ORDERED: Morphine Sulfate ER (12 HR) 15 MG TABLET.ER PO SCH (09:26)
[2019-05-16] MEDS ORDERED: Apixaban 5 MG TABLET PO SCH (10:30)
== END 2019-05-16 16:36 | disposition home or self-care (01) | DRG 308 ==
LOC: 2NENU 20:31 → EMEROOARM 20:31 → 2NENU 05-14 → SUATTDRO 05-15 14:26
PROVIDERS: ADMIT Internal Medicine; ATTEND Internal Medicine

== ENCOUNTER 2019-09-10 05:38 | Inpatient (IN) ==
[2019-09-10] MEDS ORDERED: Azithromycin 500 MG in 0.9 % Sodium Chloride 250 ML IVPB ONE (05:58)
[2019-09-10] MEDS ORDERED: cefTRIAXone 1,000 MG in Water for inj. (sterile) 10 ML IVP ONE (05:58)
[2019-09-10] MEDS ORDERED: 0.9 % Sodium Chloride 1,000 ML IVC ONE (05:58)
[2019-09-10] MEDS ORDERED: Ipratropium/Albuterol Neb 3 ML IH ONE (06:01)
[2019-09-10 06:14] LABS: Basophils % 0.3 %; Eosinophils # 0.1 K/mcL (0.0-0.6); Eosinophils % 0.7 %; Hematocrit 40.1 % (37.5-50.1); Hemoglobin 12.9 g/dL (12.9-16.9); Immature Granulocytes % 1.7 % (0-4); Lymphocytes # 0.5 K/mcL (0.6-4.6); Lymphocytes % 3.9 %; Mean Corpuscular HGB Conc 32.2 g/dL (31.6-35.5); Mean Corpuscular Hemoglobin 33.9 pg (28.0-33.3); Mean Corpuscular Volume 105.5 fL (83.0-100.0); Mean Platelet Volume 10.6 fL (9.4-12.4); Monocytes % 7.2 %; Neutrophils # 11.7 K/mcL (1.6-8.9); Nucleated Red Blood Cells 0.4 /100 WBC (0); Platelet Count 130 K/mcL (140-400); Red Cell Distribution Width 17.9 % (11.5-14.5); Segmented Neutrophils % 86.2 %; White Blood Count 13.6 K/mcL (4.3-11.1)
[2019-09-10 06:39] LABS: Alanine Aminotransferase 12 Units/L (7-52); Albumin 3.6 g/dL (3.5-5.7); Albumin/Globulin Ratio 1.5 (1.1-2.2); Alkaline Phosphatase 73 Units/L (34-104); Aspartate Amino Transferase 33 Units/L (13-39); BUN/Creatinine Ratio 24 (6-26); Bilirubin,Direct 0.1 mg/dL (0.0-0.2); Bilirubin,Indirect 0.7 mg/dL (0.0-1.0); Bilirubin,Total 0.8 mg/dL (0.3-1.0); Blood Urea Nitrogen 23 mg/dL (8-23); Calcium 8.9 mg/dL (8.6-10.3); Carbon Dioxide 36 mEq/L (23-29); Chloride 98 mEq/L (98-107); Globulin 2.4 g/dL (2.4-3.5); Glucose 114 mg/dL (70-105); Osmolality,Calculated 297 (280-300); Potassium 4.4 mEq/L (3.5-5.1); Sodium 141 mEq/L (136-145); Troponin I 0.03 ng/mL (< 0.04); eGFR For African Americans > 60 (> 60); eGFR For Non-African Americans > 60 (> 60)
[2019-09-10] MEDS ORDERED: methylPREDNISolone 125 MG/2 ML VIAL IVP ONE (06:40)
[2019-09-10] MEDS ORDERED: Ondansetron 4 MG/2 ML VIAL IVP PRN (07:43)
[2019-09-10] MEDS ORDERED: Naloxone 0.4 MG/ML INJ IVP PRN (07:43)
[2019-09-10] MEDS ORDERED: 0.9 % Sodium Chloride 1,000 ML IVC SCH (07:45)
[2019-09-10] MEDS ORDERED: Ipratropium/Albuterol Neb 3 ML IH SCH (08:00)
[2019-09-10] MEDS ORDERED: 0.9 % Sodium Chloride 1,000 ML ONE (08:31)
[2019-09-10] MEDS ORDERED: 0.9 % Sodium Chloride 1,000 ML IV STA (08:33)
[2019-09-10 08:44] LABS: Adenovirus Not Detected (Not Detect); Coronavirus 229E Not Detected (Not Detect); Coronavirus HKU1 Not Detected (Not Detect); Coronavirus NL63 Not Detected (Not Detect); Coronavirus OC43 Not Detected (Not Detect); Human Metapneumovirus Not Detected (Not Detect); Human Rhinovirus/Enterovirus Not Detected (Not Detect)
[2019-09-10 08:45] LABS: Bordetella Pertussis Not Detected (Not Detect); Chlamydophila pneumoniae Not Detected (Not Detect); Influenza A Subtype 2009 H1 Not Detected (Not Detect); Mycoplasma pneumoniae Not Detected (Not Detect); Parainfluenza Virus 1 Not Detected (Not Detect); Parainfluenza Virus 2 Not Detected (Not Detect); Parainfluenza Virus 3 Not Detected (Not Detect); Parainfluenza Virus 4 Not Detected (Not Detect); Respiratory Syncytial Virus Not Detected (Not Detect)
[2019-09-10 08:47] LABS: Influenza B DETECTED (Not Detect)
[2019-09-10] MEDS ORDERED: 0.9 % Sodium Chloride 1,000 ML IV ONE (09:26)
[2019-09-10] MEDS ORDERED: Albuterol 2.5 MG/3 ML NEBULIZER IH PRN (09:28)
[2019-09-10] MEDS ORDERED: Vancomycin (wt based) 1,000 MG VIAL IVPB SCH (10:00)
[2019-09-10 10:55] LABS: INR 1.1
[2019-09-10 10:58] LABS: Activated Partial Thrombo Time 28.9 Seconds (26.0-36.0); Heparin anti-factor XA UFH 0.03 IU/mL (0.30-0.70)
[2019-09-10] MEDS ORDERED: Ipratropium/Albuterol Neb 3 ML ONE (11:05)
[2019-09-10] MEDS ORDERED: *HR* Heparin 5,000 UNIT/ML VIAL IVP PRN ×2 (11:06)
[2019-09-10] MEDS: Ipratropium/Albuterol Neb 3 ML IH SCH ×4 (11:13→23:12)
[2019-09-10 11:40] LABS: ABG Base Excess 5 mEq/L (-2 to 3); ABG HCO3 34 mEq/L (21-27); ABG Oxygen Saturation 97 % (95-98); ABG PCO2 79 mmHg (35-45); ABG PH 7.24 pH Units (7.32-7.45); ABG PO2 107 mmHg (85-104); ABG TCO2 37 mEq/L (20-26); Blood Gas Modality ST; Blood Gas Pressure Support 12 cm H2O
[2019-09-10] MEDS: Heparin 25,000 UNIT/250 ML D5W 25,000 UNIT/250 ML IV.SOLN IVC SCH (11:57)
[2019-09-10] MEDS: MethylPREDNISolone 40 MG/ML VIAL IVP SCH ×2 (14:18→20:41)
[2019-09-10] MEDS: Piperacillin/Tazobactam 3.375 GM in 0.9 % Sodium Chloride Mini Bag 100 ML IVPB SCH (16:19)
[2019-09-10] MEDS ORDERED: D5% in Water 1,000 ML IVC PRN (18:31)
[2019-09-10] MEDS ORDERED: *HR* Dextrose 50 % in Water (Syg) 50 ML SYRINGE IVP PRN (18:31)
[2019-09-10] MEDS ORDERED: Dextrose Gel 15 GM/37.5 ML TUBE PO PRN ×2 (18:31)
[2019-09-10 18:47] LABS: Hematocrit 32.7 % (37.5-50.1); Hemoglobin 10.9 g/dL (12.9-16.9); Immature Platelets 6.9 % (1.1-6.1); Mean Corpuscular HGB Conc 33.3 g/dL (31.6-35.5); Mean Corpuscular Hemoglobin 34.5 pg (28.0-33.3); Mean Corpuscular Volume 103.5 fL (83.0-100.0); Mean Platelet Volume 10.6 fL (9.4-12.4); Red Blood Count 3.16 M/mcL (4.19-5.50); Red Cell Distribution Width 17.6 % (11.5-14.5); White Blood Count 9.8 K/mcL (4.3-11.1)
[2019-09-10] MEDS: Budesonide/Formoterol 80/4.5 1 PUFF INH IH SCH (19:28)
[2019-09-11] MEDS: Piperacillin/Tazobactam 3.375 GM in 0.9 % Sodium Chloride Mini Bag 100 ML IVPB SCH ×3 (00:20→15:58)
[2019-09-11] MEDS: Insulin LISPRO 300 UNITS/3 ML VIAL SQ SCH ×4 (00:34→18:00)
[2019-09-11 02:53] LABS: Basophils % 0.1 %; Hematocrit 33.2 % (37.5-50.1); Immature Granulocytes % 1.1 % (0-4); Lymphocytes # 0.5 K/mcL (0.6-4.6); Lymphocytes % 4.5 %; Mean Corpuscular HGB Conc 32.2 g/dL (31.6-35.5); Mean Corpuscular Hemoglobin 33.8 pg (28.0-33.3); Mean Corpuscular Volume 104.7 fL (83.0-100.0); Mean Platelet Volume 11.1 fL (9.4-12.4); Monocytes # 0.3 K/mcL (0.0-1.3); Monocytes % 2.7 %; Neutrophils # 9.1 K/mcL (1.6-8.9); Platelet Count 102 K/mcL (140-400); Red Blood Count 3.17 M/mcL (4.19-5.50); Red Cell Distribution Width 16.9 % (11.5-14.5); Segmented Neutrophils % 91.6 %
[2019-09-11 02:59] LABS: Hemoglobin 10.7 g/dL (12.9-16.9)
[2019-09-11 03:13] LABS: BUN/Creatinine Ratio 30 (6-26); Blood Urea Nitrogen 24 mg/dL (8-23); Calcium 8.2 mg/dL (8.6-10.3); Carbon Dioxide 31 mEq/L (23-29); Chloride 105 mEq/L (98-107); Glucose 177 mg/dL (70-105); Osmolality,Calculated 300 (280-300); Potassium 4.4 mEq/L (3.5-5.1); Sodium 141 mEq/L (136-145); eGFR For African Americans > 60 (> 60); eGFR For Non-African Americans > 60 (> 60)
[2019-09-11] MEDS: Ipratropium/Albuterol Neb 3 ML IH SCH ×6 (03:29→23:48)
[2019-09-11] MEDS: MethylPREDNISolone 40 MG/ML VIAL IVP SCH (05:26)
[2019-09-11] MEDS: Heparin 25,000 UNIT/250 ML D5W 25,000 UNIT/250 ML IV.SOLN IVC SCH ×2 (05:40→21:05)
[2019-09-11] MEDS ORDERED: Azithromycin 500 MG in 0.9 % Sodium Chloride 250 ML IVPB SCH (06:30)
[2019-09-11] MEDS ORDERED: cefTRIAXone 1,000 MG in Water for inj. (sterile) 10 ML IVPB SCH (06:30)
[2019-09-11] MEDS: Budesonide/Formoterol 80/4.5 1 PUFF INH IH SCH ×2 (07:35→20:03)
[2019-09-11] MEDS ORDERED: Morphine Sulfate ER (12 HR) 30 MG TABLET.ER PO PRN (08:10)
[2019-09-11] MEDS ORDERED: GuaiFENesin Liq 200 MG/10 ML UDC PO PRN ×2 (08:39→18:07)
[2019-09-11] MEDS ORDERED: Cholecalciferol (D-3) 1,000 UNIT (25MCG) TABLET PO SCH (09:00)
[2019-09-11] MEDS ORDERED: MethylPREDNISolone 40 MG/ML VIAL IVP SCH (09:00)
[2019-09-11] MEDS ORDERED: Morphine Sulfate ER (12 HR) 30 MG TABLET.ER PO SCH (09:00)
[2019-09-11] MEDS ORDERED: Metoprolol XL (24 HR) Succ 25 MG TAB.ER.24H PO SCH (09:00)
[2019-09-11] MEDS ORDERED: Tiotropium 18 MCG inhalation IH SCH (10:00)
[2019-09-11] MEDS: Furosemide 40 MG TABLET PO SCH ×2 (10:04→10:51)
[2019-09-11] MEDS: Gabapentin 300 MG CAPSULE PO SCH ×3 (10:52→20:59)
[2019-09-11] MEDS ORDERED: DilTIAZem 50 MG in 0.9 % Sodium Chloride 40 ML IVC SCH ×2 (13:45→18:07)
[2019-09-11] MEDS ORDERED: Furosemide 20 MG/2 ML VIAL IVP ONE (16:44)
[2019-09-11] MEDS ORDERED: Albuterol 2.5 MG/3 ML NEBULIZER IH PRN (18:07)
[2019-09-11] MEDS ORDERED: *HR* Heparin 5,000 UNIT/ML VIAL IVP PRN ×2 (18:07)
[2019-09-11] MEDS ORDERED: Ondansetron 4 MG/2 ML VIAL IVP PRN (18:07)
[2019-09-11] MEDS ORDERED: D5% in Water 1,000 ML IVC PRN (18:07)
[2019-09-11] MEDS ORDERED: Naloxone 0.4 MG/ML INJ IVP PRN (18:07)
[2019-09-11] MEDS ORDERED: *HR* Dextrose 50 % in Water (Syg) 50 ML SYRINGE IVP PRN (18:07)
[2019-09-11] MEDS ORDERED: Dextrose Gel 15 GM/37.5 ML TUBE PO PRN ×2 (18:07)
[2019-09-11] MEDS: Morphine Sulfate ER (12 HR) 30 MG TABLET.ER PO SCH (20:59)
[2019-09-12] MEDS ORDERED: Insulin LISPRO 300 UNITS/3 ML VIAL SQ SCH
[2019-09-12] MEDS: Piperacillin/Tazobactam 3.375 GM in 0.9 % Sodium Chloride Mini Bag 100 ML IVPB SCH ×3 (01:12→16:43)
[2019-09-12 01:36] LABS: Basophils % 0.1 %; Hematocrit 31.5 % (37.5-50.1); Hemoglobin 10.3 g/dL (12.9-16.9); Immature Granulocytes % 0.9 % (0-4); Lymphocytes # 0.4 K/mcL (0.6-4.6); Mean Corpuscular HGB Conc 32.7 g/dL (31.6-35.5); Mean Platelet Volume 11.1 fL (9.4-12.4); Monocytes # 0.5 K/mcL (0.0-1.3); Monocytes % 4.1 %; Neutrophils # 11.8 K/mcL (1.6-8.9); Nucleated Red Blood Cells 0.2 /100 WBC (0); Platelet Count 110 K/mcL (140-400); Red Blood Count 3.03 M/mcL (4.19-5.50); Red Cell Distribution Width 16.9 % (11.5-14.5); Segmented Neutrophils % 91.9 %; White Blood Count 12.9 K/mcL (4.3-11.1)
[2019-09-12 02:02] LABS: Alanine Aminotransferase 8 Units/L (7-52); Albumin/Globulin Ratio 1.3 (1.1-2.2); Alkaline Phosphatase 49 Units/L (34-104); Aspartate Amino Transferase 20 Units/L (13-39); BUN/Creatinine Ratio 23 (6-26); Bilirubin,Total 0.4 mg/dL (0.3-1.0); Blood Urea Nitrogen 21 mg/dL (8-23); Calcium 8.1 mg/dL (8.6-10.3); Carbon Dioxide 33 mEq/L (23-29); Chloride 100 mEq/L (98-107); Globulin 2.3 g/dL (2.4-3.5); Glucose 121 mg/dL (70-105); Magnesium 1.9 mg/dL (1.6-2.6); Osmolality,Calculated 300 (280-300); Phosphorous 2.5 mg/dL (2.7-4.5); Potassium 3.5 mEq/L (3.5-5.1); Sodium 143 mEq/L (136-145); Total Protein 5.3 g/dL (6.4-8.9); eGFR For African Americans > 60 (> 60); eGFR For Non-African Americans > 60 (> 60)
[2019-09-12] MEDS: Ipratropium/Albuterol Neb 3 ML IH SCH ×6 (03:46→23:38)
[2019-09-12] MEDS: Levothyroxine 25 MCG TABLET PO SCH (04:41)
[2019-09-12] MEDS: Heparin 25,000 UNIT/250 ML D5W 25,000 UNIT/250 ML IV.SOLN IVC SCH (04:44)
[2019-09-12] MEDS ORDERED: Azithromycin 500 MG in 0.9 % Sodium Chloride 250 ML IVPB SCH (06:00)
[2019-09-12] MEDS ORDERED: Levothyroxine 25 MCG TABLET PO SCH (06:30)
[2019-09-12] MEDS: MethylPREDNISolone 40 MG/ML VIAL IVP SCH ×2 (07:22→07:57)
[2019-09-12] MEDS ORDERED: Aminoglycoside Consult 1 EACH MC ONE (07:43)
[2019-09-12] MEDS: Budesonide/Formoterol 80/4.5 1 PUFF INH IH SCH ×2 (07:49→20:06)
[2019-09-12] MEDS: Tiotropium 18 MCG inhalation IH SCH (07:52)
[2019-09-12] MEDS: Gabapentin 300 MG CAPSULE PO SCH ×3 (07:54→21:18)
[2019-09-12] MEDS: Furosemide 40 MG TABLET PO SCH (07:54)
[2019-09-12] MEDS: Cholecalciferol (D-3) 1,000 UNIT (25MCG) TABLET PO SCH (07:54)
[2019-09-12] MEDS: Insulin LISPRO 300 UNITS/3 ML VIAL SQ SCH ×4 (07:54→21:19)
[2019-09-12] MEDS: Morphine Sulfate ER (12 HR) 30 MG TABLET.ER PO SCH ×2 (07:55→21:18)
[2019-09-12] MEDS: Cyanocobalamin (B-12) 1,000 MCG TABLET PO SCH (07:55)
[2019-09-12] MEDS ORDERED: NON-FORMULARY MEDICATION 1 EACH EACH (Cholecalciferol (Vitamin D3) [Vitamin D3] 2,000 UNIT PO SCH (09:00)
[2019-09-12] MEDS ORDERED: DilTIAZem CD (24hr) 120 MG CAP.ER.24H PO SCH (09:00)
[2019-09-12] MEDS ORDERED: Cyanocobalamin (B-12) 1,000 MCG TABLET PO SCH (09:00)
[2019-09-12] MEDS: Loratadine 10 MG TABLET PO SCH (09:29)
[2019-09-12] MEDS: Metoprolol XL (24 HR) Succ 25 MG TAB.ER.24H PO SCH (09:29)
[2019-09-12] MEDS: Apixaban 2.5 MG TABLET PO SCH ×2 (11:08→21:18)
[2019-09-12] MEDS: Sucralfate 1 GM TABLET PO SCH ×3 (11:08→21:18)
[2019-09-12] MEDS: Melatonin 3 MG TABLET PO SCH (21:18)
[2019-09-12] MEDS: Mirtazapine 15 MG TABLET PO SCH (21:18)
[2019-09-13] MEDS: Piperacillin/Tazobactam 3.375 GM in 0.9 % Sodium Chloride Mini Bag 100 ML IVPB SCH ×4 (00:13→23:41)
[2019-09-13] MEDS: DilTIAZem 50 MG in 0.9 % Sodium Chloride 40 ML IVC SCH ×3 (01:46→15:01)
[2019-09-13 02:49] LABS: Red Cell Distribution Width 16.9 % (11.5-14.5)
[2019-09-13 02:52] LABS: Basophils % 0.1 %; Hematocrit 29.4 % (37.5-50.1); Hemoglobin 9.3 g/dL (12.9-16.9); Immature Granulocytes % 0.8 % (0-4); Immature Platelets 4.5 % (1.1-6.1); Lymphocytes # 0.3 K/mcL (0.6-4.6); Lymphocytes % 3.7 %; Mean Corpuscular HGB Conc 31.6 g/dL (31.6-35.5); Mean Corpuscular Hemoglobin 33.7 pg (28.0-33.3); Mean Corpuscular Volume 106.5 fL (83.0-100.0); Mean Platelet Volume 10.8 fL (9.4-12.4); Monocytes # 0.5 K/mcL (0.0-1.3); Monocytes % 6.8 %; Nucleated Red Blood Cells 0.3 /100 WBC (0); Red Blood Count 2.76 M/mcL (4.19-5.50); Segmented Neutrophils % 88.6 %; White Blood Count 7.9 K/mcL (4.3-11.1)
[2019-09-13 02:55] LABS: Platelet Count 98 K/mcL (140-400)
[2019-09-13 03:06] LABS: BUN/Creatinine Ratio 20 (6-26); Blood Urea Nitrogen 19 mg/dL (8-23); Calcium 8.1 mg/dL (8.6-10.3); Carbon Dioxide 31 mEq/L (23-29); Chloride 106 mEq/L (98-107); Glucose 159 mg/dL (70-105); Osmolality,Calculated 302 (280-300); Potassium 3.4 mEq/L (3.5-5.1); Sodium 143 mEq/L (136-145); eGFR For African Americans > 60 (> 60); eGFR For Non-African Americans > 60 (> 60)
[2019-09-13] MEDS: Ipratropium/Albuterol Neb 3 ML IH SCH ×5 (04:33→19:56)
[2019-09-13] MEDS: Levothyroxine 25 MCG TABLET PO SCH (05:58)
[2019-09-13] MEDS: Budesonide/Formoterol 80/4.5 1 PUFF INH IH SCH ×2 (07:35→19:56)
[2019-09-13] MEDS: Tiotropium 18 MCG inhalation IH SCH (07:39)
[2019-09-13] MEDS: DilTIAZem CD (24hr) 120 MG CAP.ER.24H PO SCH (08:14)
[2019-09-13] MEDS: Insulin LISPRO 300 UNITS/3 ML VIAL SQ SCH ×4 (08:15→20:58)
[2019-09-13] MEDS: Sucralfate 1 GM TABLET PO SCH ×4 (08:15→20:57)
[2019-09-13] MEDS: Metoprolol XL (24 HR) Succ 25 MG TAB.ER.24H PO SCH (08:24)
[2019-09-13] MEDS ORDERED: Apixaban 2.5 MG TABLET PO SCH ×2 (09:00→21:00)
[2019-09-13] MEDS: Gabapentin 300 MG CAPSULE PO SCH ×3 (10:39→20:56)
[2019-09-13] MEDS: Cholecalciferol (D-3) 1,000 UNIT (25MCG) TABLET PO SCH ×2 (10:40→11:05)
[2019-09-13] MEDS: Azithromycin 250 MG TABLET PO SCH (10:40)
[2019-09-13] MEDS: Cyanocobalamin (B-12) 1,000 MCG TABLET PO SCH (10:41)
[2019-09-13] MEDS: Apixaban 2.5 MG TABLET PO SCH ×2 (10:42→20:57)
[2019-09-13] MEDS: Morphine Sulfate ER (12 HR) 30 MG TABLET.ER PO SCH ×2 (10:42→20:56)
[2019-09-13] MEDS: Furosemide 40 MG TABLET PO SCH (10:43)
[2019-09-13] MEDS: MethylPREDNISolone 40 MG/ML VIAL IVP SCH (10:43)
[2019-09-13] MEDS: Loratadine 10 MG TABLET PO SCH (10:43)
[2019-09-13 17:44] LABS: Adenovirus F 40/41 PCR Not detected (Not detect); Astrovirus PCR Not detected (Not detect); C.difficile Toxin A/B Gene PCR Not detected (Not detect); Campylobacter by PCR Not detected (Not detect); Cryptosporidium by PCR Not detected (Not detect); Cyclospora cayetanensis PCR Not detected (Not detect); E. coli O157 by PCR Not detected (Not detect); Entamoeba histolytica PCR Not detected (Not detect); Enteroaggregative E.coli(EAEC) Not detected (Not detect); Enteropathogenic E.coli(EPEC) Not detected (Not detect); Enterotoxigenic E.coli (ETEC) Not detected (Not detect); Giardia lamblia PCR Not detected (Not detect); Norovirus GI/GII PCR Not detected (Not detect); Plesiomonas shigelloides PCR Not detected (Not detect); Rotavirus A PCR Not detected (Not detect); Salmonella PCR Not detected (Not detect); Sapovirus PCR Not detected (Not detect); Shig/EnteroinvasiveE coli EIEC Not detected (Not detect); Shigalike tox-prod E coli STEC Not detected (Not detect); Vibrio PCR Not detected (Not detect); Vibrio cholerae PCR Not detected (Not detect); Yersinia enterocolitica PCR Not detected (Not detect)
[2019-09-13] MEDS: Mirtazapine 15 MG TABLET PO SCH (20:57)
[2019-09-13] MEDS: Melatonin 3 MG TABLET PO SCH (22:08)
[2019-09-14] MEDS: Ipratropium/Albuterol Neb 3 ML IH SCH ×4 (03:35→11:00)
[2019-09-14 04:06] LABS: Basophils % 0.1 %; Hematocrit 31.6 % (37.5-50.1); Hemoglobin 10.3 g/dL (12.9-16.9); Immature Granulocytes % 1.2 % (0-4); Lymphocytes # 0.5 K/mcL (0.6-4.6); Lymphocytes % 6.7 %; Mean Corpuscular HGB Conc 32.6 g/dL (31.6-35.5); Mean Corpuscular Hemoglobin 33.8 pg (28.0-33.3); Mean Corpuscular Volume 103.6 fL (83.0-100.0); Mean Platelet Volume 10.8 fL (9.4-12.4); Monocytes # 0.3 K/mcL (0.0-1.3); Monocytes % 4.4 %; Neutrophils # 6.8 K/mcL (1.6-8.9); Nucleated Red Blood Cells 0.3 /100 WBC (0); Platelet Count 105 K/mcL (140-400); Red Blood Count 3.05 M/mcL (4.19-5.50); Red Cell Distribution Width 16.7 % (11.5-14.5); Segmented Neutrophils % 87.6 %; White Blood Count 7.8 K/mcL (4.3-11.1)
[2019-09-14 04:25] LABS: BUN/Creatinine Ratio 23 (6-26); Blood Urea Nitrogen 23 mg/dL (8-23); Calcium 8.5 mg/dL (8.6-10.3); Carbon Dioxide 32 mEq/L (23-29); Chloride 103 mEq/L (98-107); Glucose 179 mg/dL (70-105); Osmolality,Calculated 302 (280-300); Potassium 3.8 mEq/L (3.5-5.1); Sodium 142 mEq/L (136-145); eGFR For African Americans > 60 (> 60); eGFR For Non-African Americans > 60 (> 60)
[2019-09-14 04:39] LABS: Platelet Estimate Slight Decrease (Normal); Reactive Lymphocytes Present (Not Present)
[2019-09-14] MEDS: Levothyroxine 25 MCG TABLET PO SCH (06:07)
[2019-09-14] MEDS: Budesonide/Formoterol 80/4.5 1 PUFF INH IH SCH (07:47)
[2019-09-14] MEDS: Tiotropium 18 MCG inhalation IH SCH (07:48)
[2019-09-14] MEDS: MethylPREDNISolone 40 MG/ML VIAL IVP SCH (08:19)
[2019-09-14] MEDS: Cyanocobalamin (B-12) 1,000 MCG TABLET PO SCH (08:19)
[2019-09-14] MEDS: Azithromycin 250 MG TABLET PO SCH (08:19)
[2019-09-14] MEDS: Furosemide 40 MG TABLET PO SCH (08:20)
[2019-09-14] MEDS: Gabapentin 300 MG CAPSULE PO SCH (08:20)
[2019-09-14] MEDS: Loratadine 10 MG TABLET PO SCH (08:20)
[2019-09-14] MEDS: Sucralfate 1 GM TABLET PO SCH (08:20)
[2019-09-14] MEDS: Metoprolol XL (24 HR) Succ 25 MG TAB.ER.24H PO SCH (08:20)
[2019-09-14] MEDS: DilTIAZem CD (24hr) 120 MG CAP.ER.24H PO SCH (08:20)
[2019-09-14] MEDS: Cholecalciferol (D-3) 1,000 UNIT (25MCG) TABLET PO SCH (08:20)
[2019-09-14] MEDS: Apixaban 2.5 MG TABLET PO SCH (08:20)
[2019-09-14] MEDS: Piperacillin/Tazobactam 3.375 GM in 0.9 % Sodium Chloride Mini Bag 100 ML IVPB SCH (08:21)
[2019-09-14] MEDS: Morphine Sulfate ER (12 HR) 30 MG TABLET.ER PO SCH (08:21)
[2019-09-14] MEDS: Insulin LISPRO 300 UNITS/3 ML VIAL SQ SCH (08:23)
[2019-09-14 08:54] VITALS: BP 143/73
== END 2019-09-14 11:23 | disposition home or self-care (01) | DRG 871 ==
LOC: EMEROOARM 05:38 → CDU 05:38 → SUATTDRO 07:49 → ICNU 09:00 → 2ANU 09-11 21:45
PROVIDERS: ADMIT Internal Medicine; ATTEND Family Medicine

== ENCOUNTER 2020-01-22 11:40 | Inpatient (IN) ==
[2020-01-22] MEDS ORDERED: methylPREDNISolone 125 MG/2 ML VIAL IVP ONE (12:11)
[2020-01-22 12:40] LABS: Hematocrit 35.7 % (37.5-50.1); Hemoglobin 10.8 g/dL (12.9-16.9); Mean Corpuscular HGB Conc 30.3 g/dL (31.6-35.5); Mean Corpuscular Hemoglobin 33.5 pg (28.0-33.3); Mean Corpuscular Volume 110.9 fL (83.0-100.0); Mean Platelet Volume 10.7 fL (9.4-12.4); Monocytes # 0.6 K/mcL (0.0-1.3); Nucleated Red Blood Cells 0.4 /100 WBC (0); Platelet Count 124 K/mcL (140-400); Red Blood Count 3.22 M/mcL (4.19-5.50); Red Cell Distribution Width 14.2 % (11.5-14.5)
[2020-01-22 13:12] LABS: BUN/Creatinine Ratio 25 (6-26); Blood Urea Nitrogen 25 mg/dL (8-23); Calcium 8.4 mg/dL (8.6-10.3); Carbon Dioxide 34 mEq/L (23-29); Chloride 108 mEq/L (98-107); Glucose 117 mg/dL (70-105); Osmolality,Calculated 307 (280-300); Potassium 3.9 mEq/L (3.5-5.1); Sodium 146 mEq/L (136-145); Troponin I 0.08 ng/mL (< 0.04); eGFR For African Americans > 60 (> 60); eGFR For Non-African Americans > 60 (> 60)
[2020-01-22 13:17] LABS: Eosinophils # 0.2 K/mcL (0.0-0.6); Lymphocytes # 1.9 K/mcL (0.6-4.6)
[2020-01-22 13:18] LABS: Platelet Estimate Normal (Normal)
[2020-01-22] MEDS ORDERED: Furosemide 40 MG TABLET PO PRN (17:52)
[2020-01-22] MEDS ORDERED: Naloxone 0.4 MG/ML INJ IVP PRN (17:52)
[2020-01-22] MEDS ORDERED: Ondansetron 4 MG/2 ML VIAL IVP PRN (17:52)
[2020-01-22] MEDS ORDERED: cefTRIAXone 1,000 MG in Water for inj. (sterile) 10 ML IVP ONE (17:53)
[2020-01-22] MEDS ORDERED: Azithromycin 500 MG in D5% in Water 250 ML IVPB ONE (17:53)
[2020-01-22] MEDS: Apixaban 2.5 MG TABLET PO SCH (19:58)
[2020-01-22] MEDS: MethylPREDNISolone 40 MG/ML VIAL IVP SCH (19:58)
[2020-01-22] MEDS: Gabapentin 300 MG CAPSULE PO SCH (19:59)
[2020-01-22] MEDS: Metoprolol XL (24 HR) Succ 25 MG TAB.ER.24H PO SCH (19:59)
[2020-01-22] MEDS: Morphine Sulfate ER (12 HR) 30 MG TABLET.ER PO SCH (19:59)
[2020-01-22] MEDS: Mirtazapine 15 MG TABLET PO SCH (19:59)
[2020-01-22] MEDS ORDERED: Ipratropium/Albuterol Neb 3 ML IH SCH (20:00)
[2020-01-23 04:47] LABS: Hematocrit 35.1 % (37.5-50.1); Hemoglobin 10.9 g/dL (12.9-16.9); Immature Granulocytes % 1.3 % (0-4); Lymphocytes # 0.4 K/mcL (0.6-4.6); Mean Corpuscular HGB Conc 31.1 g/dL (31.6-35.5); Mean Corpuscular Hemoglobin 34.5 pg (28.0-33.3); Mean Corpuscular Volume 111.1 fL (83.0-100.0); Mean Platelet Volume 10.7 fL (9.4-12.4); Monocytes # 0.2 K/mcL (0.0-1.3); Monocytes % 4.8 %; Neutrophils # 3.4 K/mcL (1.6-8.9); Platelet Count 123 K/mcL (140-400); Red Blood Count 3.16 M/mcL (4.19-5.50); Red Cell Distribution Width 13.9 % (11.5-14.5); Segmented Neutrophils % 84.9 %
[2020-01-23 05:09] LABS: BUN/Creatinine Ratio 29 (6-26); Blood Urea Nitrogen 23 mg/dL (8-23); Calcium 8.1 mg/dL (8.6-10.3); Carbon Dioxide 34 mEq/L (23-29); Chloride 103 mEq/L (98-107); Glucose 170 mg/dL (70-105); Osmolality,Calculated 302 (280-300); Potassium 4.9 mEq/L (3.5-5.1); Sodium 142 mEq/L (136-145); Troponin I 0.03 ng/mL (< 0.04); eGFR For African Americans > 60 (> 60); eGFR For Non-African Americans > 60 (> 60)
[2020-01-23 05:12] LABS: Macrocytosis Present (Not Present); Platelet Estimate Slight Decrease (Normal)
[2020-01-23] MEDS: Levothyroxine 25 MCG TABLET PO SCH (06:21)
[2020-01-23] MEDS: Gabapentin 300 MG CAPSULE PO SCH ×3 (06:21→20:17)
[2020-01-23] MEDS: MethylPREDNISolone 40 MG/ML VIAL IVP SCH ×2 (06:21→17:18)
[2020-01-23] MEDS: Cyanocobalamin (B-12) 1,000 MCG TABLET PO SCH (07:56)
[2020-01-23] MEDS: DilTIAZem CD (24hr) 240 MG CAP.ER.24H PO SCH (07:56)
[2020-01-23] MEDS: lisinopriL 20 MG TABLET PO SCH (07:56)
[2020-01-23] MEDS: Apixaban 2.5 MG TABLET PO SCH (07:58)
[2020-01-23] MEDS: Cholecalciferol (D-3) 1,000 UNIT (25MCG) TABLET PO SCH (07:59)
[2020-01-23] MEDS: Metoprolol XL (24 HR) Succ 25 MG TAB.ER.24H PO SCH (08:00)
[2020-01-23] MEDS: Morphine Sulfate ER (12 HR) 30 MG TABLET.ER PO SCH ×2 (08:01→22:36)
[2020-01-23] MEDS ORDERED: *HR* Metoprolol 5 MG/5 ML VIAL IVP ONE (10:40)
[2020-01-23] MEDS: Azithromycin 500 MG in 0.9 % Sodium Chloride 250 ML IVPB SCH (17:03)
[2020-01-23] MEDS: cefTRIAXone 1,000 MG in Water for inj. (sterile) 10 ML IVP SCH (17:15)
[2020-01-23] MEDS: Mirtazapine 15 MG TABLET PO SCH (20:17)
[2020-01-23] MEDS: Apixaban 5 MG TABLET PO SCH (20:17)
[2020-01-23] MEDS: Tobramycin for INHALATION 300 MG/5 ML AMPUL IH SCH (22:10)
[2020-01-24] MEDS: Gabapentin 300 MG CAPSULE PO SCH ×3 (05:51→21:07)
[2020-01-24] MEDS: Levothyroxine 25 MCG TABLET PO SCH (05:51)
[2020-01-24] MEDS: MethylPREDNISolone 40 MG/ML VIAL IVP SCH (05:51)
[2020-01-24 06:17] LABS: Basophils % 0.2 %; Hematocrit 34.4 % (37.5-50.1); Hemoglobin 10.5 g/dL (12.9-16.9); Immature Granulocytes % 0.8 % (0-4); Lymphocytes # 0.4 K/mcL (0.6-4.6); Lymphocytes % 7.9 %; Mean Corpuscular HGB Conc 30.5 g/dL (31.6-35.5); Mean Corpuscular Hemoglobin 33.9 pg (28.0-33.3); Mean Platelet Volume 10.4 fL (9.4-12.4); Monocytes # 0.6 K/mcL (0.0-1.3); Monocytes % 11.6 %; Platelet Count 129 K/mcL (140-400); Red Cell Distribution Width 13.6 % (11.5-14.5); Segmented Neutrophils % 79.5 %; White Blood Count 4.8 K/mcL (4.3-11.1)
[2020-01-24 06:18] LABS: Neutrophils # 3.8 K/mcL (1.6-8.9)
[2020-01-24 06:32] LABS: Platelet Estimate Decreased (Normal)
[2020-01-24 06:47] LABS: ABG Base Excess 6 mEq/L (-2 to 3); ABG HCO3 34 mEq/L (21-27); ABG Oxygen Saturation 94 % (95-98); ABG PCO2 65 mmHg (35-45); ABG PH 7.32 pH Units (7.32-7.45); ABG PO2 78 mmHg (85-104); ABG TCO2 36 mEq/L (20-26)
[2020-01-24 06:50] LABS: BUN/Creatinine Ratio 37 (6-26); Blood Urea Nitrogen 36 mg/dL (8-23); Calcium 8.4 mg/dL (8.6-10.3); Carbon Dioxide 35 mEq/L (23-29); Chloride 102 mEq/L (98-107); Glucose 188 mg/dL (70-105); Osmolality,Calculated 303 (280-300); Potassium 4.9 mEq/L (3.5-5.1); Sodium 140 mEq/L (136-145); eGFR For African Americans > 60 (> 60); eGFR For Non-African Americans > 60 (> 60)
[2020-01-24] MEDS: Apixaban 5 MG TABLET PO SCH ×2 (08:05→21:08)
[2020-01-24] MEDS: Cyanocobalamin (B-12) 1,000 MCG TABLET PO SCH (08:05)
[2020-01-24] MEDS: Morphine Sulfate ER (12 HR) 30 MG TABLET.ER PO SCH ×2 (08:05→21:08)
[2020-01-24] MEDS: lisinopriL 20 MG TABLET PO SCH (08:06)
[2020-01-24] MEDS: Cholecalciferol (D-3) 1,000 UNIT (25MCG) TABLET PO SCH (08:09)
[2020-01-24] MEDS: DilTIAZem CD (24hr) 240 MG CAP.ER.24H PO SCH (08:10)
[2020-01-24] MEDS ORDERED: Isovue-370 500 ML BOTTLE IVP ONE (08:24)
[2020-01-24] MEDS ORDERED: Furosemide 40 MG TABLET PO SCH (09:00)
[2020-01-24] MEDS: Tobramycin for INHALATION 300 MG/5 ML AMPUL IH SCH ×2 (09:53→20:25)
[2020-01-24] MEDS: methylPREDNISolone 125 MG/2 ML VIAL IVP SCH ×3 (12:03→23:23)
[2020-01-24] MEDS: cefTRIAXone 1,000 MG in Water for inj. (sterile) 10 ML IVP SCH (17:19)
[2020-01-24] MEDS: Furosemide 40 MG/4 ML VIAL IVP SCH (17:21)
[2020-01-24] MEDS: Azithromycin 500 MG in 0.9 % Sodium Chloride 250 ML IVPB SCH (17:21)
[2020-01-24] MEDS: Mirtazapine 15 MG TABLET PO SCH (21:08)
[2020-01-25] MEDS: Levothyroxine 25 MCG TABLET PO SCH (05:45)
[2020-01-25] MEDS: methylPREDNISolone 125 MG/2 ML VIAL IVP SCH ×4 (05:45→23:57)
[2020-01-25] MEDS: Gabapentin 300 MG CAPSULE PO SCH ×3 (05:47→21:44)
[2020-01-25 06:21] LABS: Hematocrit 34.1 % (37.5-50.1); Hemoglobin 10.4 g/dL (12.9-16.9); Immature Granulocytes % 1.1 % (0-4); Lymphocytes # 0.3 K/mcL (0.6-4.6); Lymphocytes % 5.4 %; Mean Corpuscular HGB Conc 30.5 g/dL (31.6-35.5); Mean Corpuscular Volume 111.4 fL (83.0-100.0); Mean Platelet Volume 10.7 fL (9.4-12.4); Monocytes # 0.6 K/mcL (0.0-1.3); Monocytes % 10.9 %; Neutrophils # 4.3 K/mcL (1.6-8.9); Platelet Count 131 K/mcL (140-400); Red Blood Count 3.06 M/mcL (4.19-5.50); Red Cell Distribution Width 13.6 % (11.5-14.5); Segmented Neutrophils % 82.6 %; White Blood Count 5.2 K/mcL (4.3-11.1)
[2020-01-25 06:43] LABS: BUN/Creatinine Ratio 40 (6-26); Blood Urea Nitrogen 43 mg/dL (8-23); Calcium 8.3 mg/dL (8.6-10.3); Carbon Dioxide 35 mEq/L (23-29); Chloride 101 mEq/L (98-107); Glucose 278 mg/dL (70-105); Osmolality,Calculated 313 (280-300); Potassium 4.6 mEq/L (3.5-5.1); Sodium 141 mEq/L (136-145); eGFR For African Americans > 60 (> 60); eGFR For Non-African Americans > 60 (> 60)
[2020-01-25 06:46] LABS: Hypochromasia Present (Not Present); Macrocytosis Present (Not Present); Platelet Estimate Slight Decrease (Normal)
[2020-01-25] MEDS: Furosemide 40 MG/4 ML VIAL IVP SCH ×2 (07:40→16:39)
[2020-01-25] MEDS: lisinopriL 20 MG TABLET PO SCH (07:40)
[2020-01-25] MEDS: DilTIAZem CD (24hr) 240 MG CAP.ER.24H PO SCH (07:40)
[2020-01-25] MEDS: Apixaban 5 MG TABLET PO SCH ×2 (07:41→21:45)
[2020-01-25] MEDS: Cholecalciferol (D-3) 1,000 UNIT (25MCG) TABLET PO SCH (07:41)
[2020-01-25] MEDS: Morphine Sulfate ER (12 HR) 30 MG TABLET.ER PO SCH ×2 (07:41→21:45)
[2020-01-25] MEDS: Tobramycin for INHALATION 300 MG/5 ML AMPUL IH SCH ×2 (10:13→23:10)
[2020-01-25] MEDS: Cyanocobalamin (B-12) 1,000 MCG TABLET PO SCH (10:49)
[2020-01-25] MEDS: Azithromycin 250 MG TABLET PO SCH (16:38)
[2020-01-25] MEDS: cefTRIAXone 1,000 MG in Water for inj. (sterile) 10 ML IVP SCH (16:38)
[2020-01-25] MEDS: Mirtazapine 15 MG TABLET PO SCH (21:44)
[2020-01-26] MEDS: methylPREDNISolone 125 MG/2 ML VIAL IVP SCH ×3 (05:19→18:00)
[2020-01-26] MEDS: Levothyroxine 25 MCG TABLET PO SCH (05:35)
[2020-01-26 06:17] LABS: Basophils % 0.2 %; Hematocrit 34.2 % (37.5-50.1); Hemoglobin 10.2 g/dL (12.9-16.9); Immature Granulocytes % 1.7 % (0-4); Lymphocytes # 0.3 K/mcL (0.6-4.6); Mean Corpuscular HGB Conc 29.8 g/dL (31.6-35.5); Mean Corpuscular Volume 110.7 fL (83.0-100.0); Mean Platelet Volume 10.8 fL (9.4-12.4); Monocytes # 0.5 K/mcL (0.0-1.3); Monocytes % 8.5 %; Neutrophils # 4.6 K/mcL (1.6-8.9); Platelet Count 129 K/mcL (140-400); Red Blood Count 3.09 M/mcL (4.19-5.50); Red Cell Distribution Width 13.5 % (11.5-14.5); Segmented Neutrophils % 84.6 %; White Blood Count 5.4 K/mcL (4.3-11.1)
[2020-01-26 06:39] LABS: BUN/Creatinine Ratio 44 (6-26); Blood Urea Nitrogen 48 mg/dL (8-23); Calcium 8.3 mg/dL (8.6-10.3); Carbon Dioxide 39 mEq/L (23-29); Chloride 99 mEq/L (98-107); Glucose 242 mg/dL (70-105); Osmolality,Calculated 313 (280-300); Potassium 4.4 mEq/L (3.5-5.1); Sodium 141 mEq/L (136-145); eGFR For African Americans > 60 (> 60); eGFR For Non-African Americans > 60 (> 60)
[2020-01-26] MEDS: Gabapentin 300 MG CAPSULE PO SCH ×3 (06:50→21:46)
[2020-01-26 06:56] LABS: Anisocytosis 1+ (Not Present); Macrocytosis Present (Not Present)
[2020-01-26 06:58] LABS: Basophilic Stippling 1+ (Not Present); Platelet Estimate Normal (Normal)
[2020-01-26] MEDS: Cholecalciferol (D-3) 1,000 UNIT (25MCG) TABLET PO SCH (08:03)
[2020-01-26] MEDS: Cyanocobalamin (B-12) 1,000 MCG TABLET PO SCH (08:03)
[2020-01-26] MEDS: lisinopriL 20 MG TABLET PO SCH (08:04)
[2020-01-26] MEDS: DilTIAZem CD (24hr) 240 MG CAP.ER.24H PO SCH (08:04)
[2020-01-26] MEDS: Apixaban 5 MG TABLET PO SCH ×2 (08:04→21:45)
[2020-01-26] MEDS: Morphine Sulfate ER (12 HR) 30 MG TABLET.ER PO SCH ×2 (08:04→21:46)
[2020-01-26] MEDS: Furosemide 40 MG/4 ML VIAL IVP SCH (08:05)
[2020-01-26] MEDS: Tobramycin for INHALATION 300 MG/5 ML AMPUL IH SCH ×2 (11:05→23:52)
[2020-01-26] MEDS: Furosemide 40 MG TABLET PO SCH (15:58)
[2020-01-26] MEDS: cefTRIAXone 1,000 MG in Water for inj. (sterile) 10 ML IVP SCH (15:58)
[2020-01-26] MEDS: Azithromycin 250 MG TABLET PO SCH (18:00)
[2020-01-26] MEDS: Mirtazapine 15 MG TABLET PO SCH (21:46)
[2020-01-27 02:04] LABS: Basophils % 0.3 %; Hematocrit 31.3 % (37.5-50.1); Hemoglobin 9.6 g/dL (12.9-16.9); Lymphocytes # 0.2 K/mcL (0.6-4.6); Lymphocytes % 2.3 %; Mean Corpuscular HGB Conc 30.7 g/dL (31.6-35.5); Mean Corpuscular Hemoglobin 34.3 pg (28.0-33.3); Mean Corpuscular Volume 111.8 fL (83.0-100.0); Mean Platelet Volume 10.9 fL (9.4-12.4); Monocytes # 0.6 K/mcL (0.0-1.3); Monocytes % 7.3 %; Platelet Count 127 K/mcL (140-400); Red Cell Distribution Width 13.5 % (11.5-14.5); Segmented Neutrophils % 88.1 %; White Blood Count 7.9 K/mcL (4.3-11.1)
[2020-01-27] MEDS: methylPREDNISolone 125 MG/2 ML VIAL IVP SCH ×3 (02:21→12:24)
[2020-01-27 02:24] LABS: BUN/Creatinine Ratio 48 (6-26); Blood Urea Nitrogen 50 mg/dL (8-23); Calcium 7.7 mg/dL (8.6-10.3); Carbon Dioxide 37 mEq/L (23-29); Chloride 101 mEq/L (98-107); Glucose 293 mg/dL (70-105); Osmolality,Calculated 320 (280-300); Potassium 4.5 mEq/L (3.5-5.1); Sodium 143 mEq/L (136-145); eGFR For African Americans > 60 (> 60); eGFR For Non-African Americans > 60 (> 60)
[2020-01-27 02:50] LABS: Anisocytosis 1+ (Not Present)
[2020-01-27 02:51] LABS: Platelet Estimate Normal (Normal)
[2020-01-27] MEDS: Gabapentin 300 MG CAPSULE PO SCH ×3 (04:59→20:00)
[2020-01-27] MEDS: Levothyroxine 25 MCG TABLET PO SCH (04:59)
[2020-01-27] MEDS: Tobramycin for INHALATION 300 MG/5 ML AMPUL IH SCH ×2 (07:35→20:03)
[2020-01-27] MEDS: Apixaban 5 MG TABLET PO SCH ×2 (08:29→20:01)
[2020-01-27] MEDS: Furosemide 40 MG TABLET PO SCH ×2 (08:29→17:14)
[2020-01-27] MEDS: Cholecalciferol (D-3) 1,000 UNIT (25MCG) TABLET PO SCH (08:29)
[2020-01-27] MEDS: lisinopriL 20 MG TABLET PO SCH (08:29)
[2020-01-27] MEDS: Cyanocobalamin (B-12) 1,000 MCG TABLET PO SCH (08:29)
[2020-01-27] MEDS: Morphine Sulfate ER (12 HR) 30 MG TABLET.ER PO SCH ×2 (08:30→20:01)
[2020-01-27] MEDS: DilTIAZem CD (24hr) 240 MG CAP.ER.24H PO SCH (08:30)
[2020-01-27] MEDS ORDERED: D5% in Water 1,000 ML IVC PRN (13:23)
[2020-01-27] MEDS ORDERED: *HR* Dextrose 50 % in Water (Vial) 50 ML VIAL IVP PRN (13:23)
[2020-01-27] MEDS ORDERED: Dextrose Gel 15 GM/37.5 ML TUBE PO PRN ×2 (13:23)
[2020-01-27] MEDS: Insulin LISPRO 300 UNITS/3 ML VIAL SQ SCH (17:13)
[2020-01-27] MEDS: Azithromycin 250 MG TABLET PO SCH (17:14)
[2020-01-27] MEDS: cefTRIAXone 1,000 MG in Water for inj. (sterile) 10 ML IVP SCH (17:14)
[2020-01-27] MEDS: Mirtazapine 15 MG TABLET PO SCH (20:01)
[2020-01-27] MEDS ORDERED: Insulin LISPRO 300 UNITS/3 ML VIAL SQ SCH (21:00)
[2020-01-28 02:53] LABS: BUN/Creatinine Ratio 42 (6-26); Blood Urea Nitrogen 50 mg/dL (8-23); Calcium 8.4 mg/dL (8.6-10.3); Carbon Dioxide 42 mEq/L (23-29); Chloride 100 mEq/L (98-107); Glucose 178 mg/dL (70-105); Osmolality,Calculated 320 (280-300); Potassium 4.1 mEq/L (3.5-5.1); Sodium 146 mEq/L (136-145); eGFR For African Americans > 60 (> 60); eGFR For Non-African Americans 60 (> 60)
[2020-01-28] MEDS: Gabapentin 300 MG CAPSULE PO SCH ×3 (06:01→20:54)
[2020-01-28] MEDS: Levothyroxine 25 MCG TABLET PO SCH (06:01)
[2020-01-28 07:02] LABS: Estimated Average Glucose 166 mg/dl; Hemoglobin A1C 7.4 %
[2020-01-28] MEDS: lisinopriL 20 MG TABLET PO SCH (08:11)
[2020-01-28] MEDS: predniSONE 20 MG TABLET PO SCH (08:11)
[2020-01-28] MEDS: Apixaban 5 MG TABLET PO SCH ×2 (08:12→20:54)
[2020-01-28] MEDS: Cyanocobalamin (B-12) 1,000 MCG TABLET PO SCH (08:12)
[2020-01-28] MEDS: DilTIAZem CD (24hr) 240 MG CAP.ER.24H PO SCH (08:13)
[2020-01-28] MEDS: Furosemide 40 MG TABLET PO SCH ×2 (08:13→17:08)
[2020-01-28] MEDS: Cholecalciferol (D-3) 1,000 UNIT (25MCG) TABLET PO SCH (08:13)
[2020-01-28] MEDS: Morphine Sulfate ER (12 HR) 30 MG TABLET.ER PO SCH ×2 (08:13→20:53)
[2020-01-28] MEDS: Insulin LISPRO 300 UNITS/3 ML VIAL SQ SCH ×4 (09:11→20:53)
[2020-01-28] MEDS: Tobramycin for INHALATION 300 MG/5 ML AMPUL IH SCH ×2 (10:10→20:34)
[2020-01-28] MEDS: Azithromycin 250 MG TABLET PO SCH (17:07)
[2020-01-28] MEDS: cefTRIAXone 1,000 MG in Water for inj. (sterile) 10 ML IVP SCH (17:08)
[2020-01-28] MEDS: Budesonide/Formoterol 160/4.5 1 PUFF INH IH SCH (20:34)
[2020-01-28] MEDS: Mirtazapine 15 MG TABLET PO SCH (20:53)
[2020-01-28] MEDS: Insulin DETEMIR 100 UNIT/ML X5UNITS SQ SCH (20:53)
[2020-01-29 04:23] LABS: BUN/Creatinine Ratio 49 (6-26); Blood Urea Nitrogen 45 mg/dL (8-23); Calcium 7.7 mg/dL (8.6-10.3); Carbon Dioxide 42 mEq/L (23-29); Chloride 100 mEq/L (98-107); Glucose 153 mg/dL (70-105); Osmolality,Calculated 315 (280-300); Potassium 3.9 mEq/L (3.5-5.1); Sodium 145 mEq/L (136-145); eGFR For African Americans > 60 (> 60); eGFR For Non-African Americans > 60 (> 60)
[2020-01-29] MEDS: Levothyroxine 25 MCG TABLET PO SCH (06:43)
[2020-01-29] MEDS: Insulin LISPRO 300 UNITS/3 ML VIAL SQ SCH ×4 (07:41→20:34)
[2020-01-29] MEDS: Budesonide/Formoterol 160/4.5 1 PUFF INH IH SCH ×2 (07:41→20:15)
[2020-01-29] MEDS: Cholecalciferol (D-3) 1,000 UNIT (25MCG) TABLET PO SCH (07:48)
[2020-01-29] MEDS: Cyanocobalamin (B-12) 1,000 MCG TABLET PO SCH (07:48)
[2020-01-29] MEDS: Insulin DETEMIR 100 UNIT/ML X5UNITS SQ SCH ×2 (07:48→20:37)
[2020-01-29] MEDS: DilTIAZem CD (24hr) 240 MG CAP.ER.24H PO SCH (07:48)
[2020-01-29] MEDS: lisinopriL 20 MG TABLET PO SCH (07:48)
[2020-01-29] MEDS: predniSONE 20 MG TABLET PO SCH (07:48)
[2020-01-29] MEDS: Morphine Sulfate ER (12 HR) 30 MG TABLET.ER PO SCH ×2 (07:49→20:34)
[2020-01-29] MEDS: Furosemide 40 MG TABLET PO SCH (07:49)
[2020-01-29] MEDS: Apixaban 5 MG TABLET PO SCH ×2 (07:49→20:33)
[2020-01-29] MEDS: Gabapentin 300 MG CAPSULE PO SCH ×3 (07:53→20:34)
[2020-01-29] MEDS: Lactobacillus 1 EACH CAP.SPRINK PO SCH ×2 (10:53→20:34)
[2020-01-29] MEDS: Tobramycin for INHALATION 300 MG/5 ML AMPUL IH SCH ×2 (11:02→22:56)
[2020-01-29] MEDS: cefTRIAXone 1,000 MG in Water for inj. (sterile) 10 ML IVP SCH (16:20)
[2020-01-29] MEDS: Azithromycin 250 MG TABLET PO SCH (16:20)
[2020-01-29] MEDS: Mirtazapine 15 MG TABLET PO SCH (20:34)
[2020-01-30] MEDS: Levothyroxine 25 MCG TABLET PO SCH (05:26)
[2020-01-30 06:20] LABS: BUN/Creatinine Ratio 42 (6-26); Blood Urea Nitrogen 43 mg/dL (8-23); Calcium 7.8 mg/dL (8.6-10.3); Carbon Dioxide 41 mEq/L (23-29); Chloride 101 mEq/L (98-107); Glucose 153 mg/dL (70-105); Osmolality,Calculated 314 (280-300); Potassium 4.2 mEq/L (3.5-5.1); Sodium 145 mEq/L (136-145); eGFR For African Americans > 60 (> 60); eGFR For Non-African Americans > 60 (> 60)
[2020-01-30] MEDS: Insulin LISPRO 300 UNITS/3 ML VIAL SQ SCH ×2 (07:26→11:40)
[2020-01-30] MEDS: Budesonide/Formoterol 160/4.5 1 PUFF INH IH SCH (07:40)
[2020-01-30] MEDS: lisinopriL 20 MG TABLET PO SCH (08:39)
[2020-01-30] MEDS: Morphine Sulfate ER (12 HR) 30 MG TABLET.ER PO SCH (08:39)
[2020-01-30] MEDS: Apixaban 5 MG TABLET PO SCH (08:39)
[2020-01-30] MEDS: Lactobacillus 1 EACH CAP.SPRINK PO SCH (08:39)
[2020-01-30] MEDS: DilTIAZem CD (24hr) 240 MG CAP.ER.24H PO SCH (08:39)
[2020-01-30] MEDS: Gabapentin 300 MG CAPSULE PO SCH ×2 (08:39→15:20)
[2020-01-30] MEDS: predniSONE 20 MG TABLET PO SCH (08:39)
[2020-01-30] MEDS: Cholecalciferol (D-3) 1,000 UNIT (25MCG) TABLET PO SCH (08:39)
[2020-01-30] MEDS: Cyanocobalamin (B-12) 1,000 MCG TABLET PO SCH (08:40)
[2020-01-30] MEDS: Insulin DETEMIR 100 UNIT/ML X5UNITS SQ SCH (08:41)
[2020-01-30] MEDS ORDERED: Furosemide 40 MG TABLET PO SCH (09:00)
[2020-01-30] MEDS: Tobramycin for INHALATION 300 MG/5 ML AMPUL IH SCH (10:46)
[2020-01-30 14:40] VITALS: BP 97/61
== END 2020-01-30 16:43 | disposition home or self-care (01) | DRG 190 ==
LOC: 2NENU 11:40 → EMEROOARM 11:40 → SUATTDRO 18:29 → 2NENU 19:51 → 2ANU 01-26 18:26
PROVIDERS: ADMIT Pharmacist; ATTEND Internal Medicine

== ENCOUNTER 2020-02-07 17:27 | Inpatient (IN) ==
[2020-02-07] MEDS ORDERED: Ipratropium/Albuterol Neb 3 ML IH ONE (17:37)
[2020-02-07] MEDS ORDERED: methylPREDNISolone 125 MG/2 ML VIAL IVP ONE (17:37)
[2020-02-07] MEDS ORDERED: Furosemide 60 MG in 0.9 % Sodium Chloride 50 ML IV STA (17:39)
[2020-02-07] MEDS ORDERED: MethylPREDNISolone 40 MG/ML VIAL IVP ONE (17:45)
[2020-02-07] MEDS ORDERED: Furosemide 40 MG/4 ML VIAL ONE (17:48)
[2020-02-07 18:10] LABS: VBG HCO3 33 mEq/L (21-27); VBG PCO2 59 mmHg (41-51); VBG PH 7.36 pH Units (7.32-7.42); VBG PO2 119 mmHg (25-50)
[2020-02-07 18:16] LABS: Prothrombin Time 11.2 Seconds (9.4-12.1)
[2020-02-07 18:19] LABS: Activated Partial Thrombo Time 25.1 Seconds (26.0-36.0); Hematocrit 30.9 % (37.5-50.1); Hemoglobin 9.3 g/dL (12.9-16.9); Immature Platelets 3.9 % (1.1-6.1); Mean Corpuscular HGB Conc 30.1 g/dL (31.6-35.5); Mean Corpuscular Hemoglobin 34.2 pg (28.0-33.3); Mean Corpuscular Volume 113.6 fL (83.0-100.0); Mean Platelet Volume 10.7 fL (9.4-12.4); Platelet Count 132 K/mcL (140-400); Red Blood Count 2.72 M/mcL (4.19-5.50); Red Cell Distribution Width 14.2 % (11.5-14.5); White Blood Count 4.9 K/mcL (4.3-11.1)
[2020-02-07] MEDS ORDERED: Cefepime HCl 2,000 MG in Water for inj. (sterile) 20 ML IVP STA (18:25)
[2020-02-07] MEDS ORDERED: Azithromycin 500 MG in 0.9 % Sodium Chloride 250 ML IVPB ONE (18:26)
[2020-02-07] MEDS ORDERED: Vancomycin 1,500 MG/265 ML IV.SOLN IVPB ONE (18:26)
[2020-02-07 18:28] LABS: Alanine Aminotransferase 10 Units/L (7-52); Albumin 2.7 g/dL (3.5-5.7); Alkaline Phosphatase 49 Units/L (34-104); Aspartate Amino Transferase 14 Units/L (13-39); BUN/Creatinine Ratio 32 (6-26); Bilirubin,Direct 0.1 mg/dL (0.0-0.2); Bilirubin,Indirect 0.5 mg/dL (0.0-1.0); Bilirubin,Total 0.6 mg/dL (0.3-1.0); Blood Urea Nitrogen 37 mg/dL (8-23); Carbon Dioxide 34 mEq/L (23-29); Chloride 101 mEq/L (98-107); Globulin 2.7 g/dL (2.4-3.5); Glucose 179 mg/dL (70-105); Osmolality,Calculated 297 (280-300); Potassium 5.5 mEq/L (3.5-5.1); Sodium 137 mEq/L (136-145); Total Protein 5.4 g/dL (6.4-8.9); eGFR For African Americans > 60 (> 60); eGFR For Non-African Americans > 60 (> 60)
[2020-02-07 18:43] LABS: Hypochromasia Present (Not Present); Lymphocytes # 0.6 K/mcL (0.6-4.6); Macrocytosis Present (Not Present); Monocytes # 0.3 K/mcL (0.0-1.3); Platelet Estimate Slight Decrease (Normal)
[2020-02-07] MEDS ORDERED: Ondansetron 4 MG/2 ML VIAL IVP PRN (19:46)
[2020-02-07] MEDS ORDERED: Naloxone 0.4 MG/ML INJ IVP PRN (19:46)
[2020-02-07] MEDS ORDERED: Melatonin 3 MG TABLET PO PRN (19:51)
[2020-02-07 20:32] LABS: Adenovirus Not Detected (Not Detect); Bordetella Pertussis Not Detected (Not Detect); Chlamydophila pneumoniae Not Detected (Not Detect); Coronavirus 229E Not Detected (Not Detect); Coronavirus HKU1 Not Detected (Not Detect); Coronavirus NL63 Not Detected (Not Detect); Coronavirus OC43 Not Detected (Not Detect); Human Metapneumovirus Not Detected (Not Detect); Human Rhinovirus/Enterovirus Not Detected (Not Detect); Influenza A Subtype 2009 H1 Not Detected (Not Detect); Influenza B Not Detected (Not Detect); Mycoplasma pneumoniae Not Detected (Not Detect); Parainfluenza Virus 1 Not Detected (Not Detect); Parainfluenza Virus 2 Not Detected (Not Detect); Parainfluenza Virus 3 Not Detected (Not Detect); Parainfluenza Virus 4 Not Detected (Not Detect); Respiratory Syncytial Virus Not Detected (Not Detect); SARS-CoV-2 Not Detected (Not Detect)
[2020-02-07] MEDS ORDERED: Ipratropium/Albuterol Neb 3 ML IH PRN (20:38)
[2020-02-07 21:04] LABS: Troponin I 0.03 ng/mL (< 0.04)
[2020-02-07 21:11] LABS: Potassium 5.9 mEq/L (3.5-5.1)
[2020-02-07] MEDS ORDERED: Perflutren Lipid Microsphere 1.3 ML in 0.9 % Sodium Chloride 8.7 ML IVP PRN (21:14)
[2020-02-07] MEDS: Budesonide/Formoterol 160/4.5 1 PUFF INH IH SCH (22:03)
[2020-02-07] MEDS: Ipratropium/Albuterol Neb 3 ML IH SCH (22:03)
[2020-02-08] MEDS: Mirtazapine 15 MG TABLET PO SCH ×2 (00:38→20:55)
[2020-02-08] MEDS: Gabapentin 300 MG CAPSULE PO SCH ×4 (00:39→20:56)
[2020-02-08] MEDS: Morphine Sulfate ER (12 HR) 30 MG TABLET.ER PO SCH ×3 (00:40→20:56)
[2020-02-08] MEDS: Metoprolol XL (24 HR) Succ 25 MG TAB.ER.24H PO SCH ×3 (00:40→20:56)
[2020-02-08] MEDS: Apixaban 5 MG TABLET PO SCH ×3 (00:40→20:56)
[2020-02-08] MEDS: Cefepime HCl 2,000 MG in 0.9 % Sodium Chloride Mini Bag 100 ML IVPB SCH ×2 (00:43→09:12)
[2020-02-08] MEDS ORDERED: Insulin Human Regular 10 UNIT in 0.9 % Sodium Chloride 10 ML IV ONE (01:17)
[2020-02-08] MEDS ORDERED: *HR* Dextrose 50 % in Water (Vial) 50 ML VIAL IVP ONE (01:18)
[2020-02-08 03:35] LABS: Hemoglobin 8.2 g/dL (12.9-16.9)
[2020-02-08 03:37] LABS: Hematocrit 27.3 % (37.5-50.1); Immature Granulocytes % 0.7 % (0-4); Lymphocytes # 0.2 K/mcL (0.6-4.6); Lymphocytes % 7.5 %; Mean Corpuscular Hemoglobin 33.2 pg (28.0-33.3); Mean Corpuscular Volume 110.5 fL (83.0-100.0); Mean Platelet Volume 10.6 fL (9.4-12.4); Monocytes # 0.1 K/mcL (0.0-1.3); Monocytes % 2.5 %; Neutrophils # 2.5 K/mcL (1.6-8.9); Red Blood Count 2.47 M/mcL (4.19-5.50); Red Cell Distribution Width 14.1 % (11.5-14.5); Segmented Neutrophils % 89.3 %; White Blood Count 2.8 K/mcL (4.3-11.1)
[2020-02-08 03:40] LABS: Platelet Count 98 K/mcL (140-400)
[2020-02-08 03:42] LABS: INR 1.1; Prothrombin Time 12.5 Seconds (9.4-12.1)
[2020-02-08] MEDS: Ipratropium/Albuterol Neb 3 ML IH SCH ×4 (03:52→21:37)
[2020-02-08 03:56] LABS: Alanine Aminotransferase 9 Units/L (7-52); Albumin 2.5 g/dL (3.5-5.7); Alkaline Phosphatase 50 Units/L (34-104); Aspartate Amino Transferase 10 Units/L (13-39); BUN/Creatinine Ratio 33 (6-26); Bilirubin,Total 0.5 mg/dL (0.3-1.0); Blood Urea Nitrogen 40 mg/dL (8-23); Calcium 7.9 mg/dL (8.6-10.3); Carbon Dioxide 35 mEq/L (23-29); Chloride 100 mEq/L (98-107); Chol/HDL Ratio 3.2 (0-4.9); Cholesterol 133 mg/dL (< 200); Globulin 2.5 g/dL (2.4-3.5); Glucose 329 mg/dL (70-105); HDL Cholesterol 42 mg/dL (40-59); LDL Cholesterol,Calculated 60 mg/dL (< 100); Magnesium 2.1 mg/dL (1.6-2.6); Osmolality,Calculated 307 (280-300); Phosphorous 4.5 mg/dL (2.7-4.5); Potassium 5.1 mEq/L (3.5-5.1); Sodium 137 mEq/L (136-145); Triglycerides 153 mg/dL (< 150); eGFR For African Americans > 60 (> 60); eGFR For Non-African Americans 59 (> 60)
[2020-02-08 04:10] LABS: Thyroid Stimulating Hormone 0.228 mcIU/mL (0.340-5.600)
[2020-02-08 04:20] LABS: Folate 11.5 ng/mL (3.0-16.0)
[2020-02-08 04:23] LABS: Platelet Estimate Decreased (Normal)
[2020-02-08 04:24] LABS: Anisocytosis 1+ (Not Present); Hypochromasia Present (Not Present)
[2020-02-08] MEDS: Levothyroxine 25 MCG TABLET PO SCH (06:29)
[2020-02-08] MEDS: Vancomycin 1,250 MG/262.5 ML IV.SOLN IVPB SCH ×2 (06:30→18:07)
[2020-02-08] MEDS ORDERED: lisinopriL 20 MG TABLET PO SCH (09:00)
[2020-02-08] MEDS: Loratadine 10 MG TABLET PO SCH (09:07)
[2020-02-08] MEDS: Furosemide 40 MG/4 ML VIAL IVP SCH ×2 (09:07→20:57)
[2020-02-08] MEDS: MethylPREDNISolone 40 MG/ML VIAL IVP SCH ×2 (09:08→18:06)
[2020-02-08] MEDS: Cyanocobalamin (B-12) 1,000 MCG TABLET PO SCH (09:08)
[2020-02-08] MEDS: DilTIAZem CD (24hr) 240 MG CAP.ER.24H PO SCH (09:11)
[2020-02-08] MEDS: Budesonide/Formoterol 160/4.5 1 PUFF INH IH SCH ×2 (10:09→21:37)
[2020-02-08] MEDS ORDERED: Piperacillin/Tazobactam 3.375 GM in 0.9 % Sodium Chloride Mini Bag 100 ML IVPB SCH (16:00)
[2020-02-08] MEDS: Piperacillin/Tazobactam 3.375 GM in 0.9 % Sodium Chloride Mini Bag 100 ML IVPB SCH (16:07)
[2020-02-08] MEDS ORDERED: Azithromycin 500 MG in 0.9 % Sodium Chloride 250 ML IVPB SCH (20:00)
[2020-02-08] MEDS: Doxycycline 100 MG CAPSULE PO SCH (20:55)
[2020-02-09] MEDS: Piperacillin/Tazobactam 3.375 GM in 0.9 % Sodium Chloride Mini Bag 100 ML IVPB SCH ×3 (00:12→18:13)
[2020-02-09 01:57] LABS: Immature Granulocytes % 0.5 % (0-4); Mean Corpuscular HGB Conc 31.1 g/dL (31.6-35.5)
[2020-02-09 01:59] LABS: Eosinophils % 0.5 %; Hematocrit 26.7 % (37.5-50.1); Hemoglobin 8.3 g/dL (12.9-16.9); Immature Platelets 4.8 % (1.1-6.1); Lymphocytes # 0.2 K/mcL (0.6-4.6); Lymphocytes % 7.6 %; Mean Corpuscular Hemoglobin 33.5 pg (28.0-33.3); Mean Corpuscular Volume 107.7 fL (83.0-100.0); Mean Platelet Volume 10.5 fL (9.4-12.4); Monocytes # 0.2 K/mcL (0.0-1.3); Neutrophils # 1.7 K/mcL (1.6-8.9); Red Blood Count 2.48 M/mcL (4.19-5.50); Red Cell Distribution Width 13.6 % (11.5-14.5); Segmented Neutrophils % 80.4 %; White Blood Count 2.1 K/mcL (4.3-11.1)
[2020-02-09 02:00] LABS: Platelet Count 99 K/mcL (140-400)
[2020-02-09 02:17] LABS: Calcium 7.2 mg/dL (8.6-10.3); Magnesium 1.9 mg/dL (1.6-2.6); Potassium 4.3 mEq/L (3.5-5.1)
[2020-02-09 02:18] LABS: Platelet Estimate Decreased (Normal)
[2020-02-09] MEDS: Ipratropium/Albuterol Neb 3 ML IH SCH ×4 (03:45→22:17)
[2020-02-09] MEDS: Gabapentin 300 MG CAPSULE PO SCH (06:09)
[2020-02-09] MEDS: Levothyroxine 25 MCG TABLET PO SCH (06:09)
[2020-02-09] MEDS: MethylPREDNISolone 40 MG/ML VIAL IVP SCH ×2 (06:09→18:13)
[2020-02-09] MEDS: Doxycycline 100 MG CAPSULE PO SCH ×2 (08:35→19:53)
[2020-02-09] MEDS: Cyanocobalamin (B-12) 1,000 MCG TABLET PO SCH (08:35)
[2020-02-09] MEDS: DilTIAZem CD (24hr) 240 MG CAP.ER.24H PO SCH (08:36)
[2020-02-09] MEDS: Morphine Sulfate ER (12 HR) 30 MG TABLET.ER PO SCH ×2 (08:36→19:53)
[2020-02-09] MEDS: Metoprolol XL (24 HR) Succ 25 MG TAB.ER.24H PO SCH ×2 (08:36→19:53)
[2020-02-09] MEDS: Loratadine 10 MG TABLET PO SCH (08:36)
[2020-02-09] MEDS: Apixaban 5 MG TABLET PO SCH ×2 (08:36→19:53)
[2020-02-09] MEDS ORDERED: Furosemide 40 MG/4 ML VIAL IVP SCH (09:00)
[2020-02-09] MEDS: Budesonide/Formoterol 160/4.5 1 PUFF INH IH SCH ×2 (09:39→22:17)
[2020-02-09] MEDS: Mirtazapine 15 MG TABLET PO SCH (19:54)
[2020-02-10] MEDS: Piperacillin/Tazobactam 3.375 GM in 0.9 % Sodium Chloride Mini Bag 100 ML IVPB SCH ×4 (00:54→23:17)
[2020-02-10 03:15] LABS: Eosinophils % 0.4 %; Hematocrit 26.9 % (37.5-50.1); Hemoglobin 8.2 g/dL (12.9-16.9); Immature Granulocytes % 0.9 % (0-4); Immature Platelets 3.7 % (1.1-6.1); Lymphocytes # 0.1 K/mcL (0.6-4.6); Lymphocytes % 5.8 %; Mean Corpuscular HGB Conc 30.5 g/dL (31.6-35.5); Mean Corpuscular Hemoglobin 33.7 pg (28.0-33.3); Mean Corpuscular Volume 110.7 fL (83.0-100.0); Mean Platelet Volume 10.7 fL (9.4-12.4); Monocytes # 0.2 K/mcL (0.0-1.3); Monocytes % 9.8 %; Neutrophils # 1.9 K/mcL (1.6-8.9); Red Blood Count 2.43 M/mcL (4.19-5.50); Red Cell Distribution Width 13.2 % (11.5-14.5); Segmented Neutrophils % 83.1 %; White Blood Count 2.3 K/mcL (4.3-11.1)
[2020-02-10 03:24] LABS: Platelet Count 94 K/mcL (140-400)
[2020-02-10 03:31] LABS: Calcium 7.5 mg/dL (8.6-10.3); Potassium 4.4 mEq/L (3.5-5.1)
[2020-02-10 03:43] LABS: Platelet Estimate Decreased (Normal); Poikilocytosis 1+ (Not Present)
[2020-02-10] MEDS: Ipratropium/Albuterol Neb 3 ML IH SCH ×4 (03:53→21:51)
[2020-02-10] MEDS: Levothyroxine 25 MCG TABLET PO SCH (05:23)
[2020-02-10] MEDS: MethylPREDNISolone 40 MG/ML VIAL IVP SCH ×2 (05:23→18:13)
[2020-02-10] MEDS: DilTIAZem CD (24hr) 240 MG CAP.ER.24H PO SCH (09:29)
[2020-02-10] MEDS: Metoprolol XL (24 HR) Succ 25 MG TAB.ER.24H PO SCH ×2 (09:29→20:06)
[2020-02-10] MEDS: Morphine Sulfate ER (12 HR) 30 MG TABLET.ER PO SCH ×2 (09:29→20:06)
[2020-02-10] MEDS: Doxycycline 100 MG CAPSULE PO SCH ×2 (09:29→20:06)
[2020-02-10] MEDS: Apixaban 5 MG TABLET PO SCH ×2 (09:29→20:06)
[2020-02-10] MEDS: Cyanocobalamin (B-12) 1,000 MCG TABLET PO SCH (09:30)
[2020-02-10] MEDS: Loratadine 10 MG TABLET PO SCH (09:30)
[2020-02-10] MEDS: Budesonide/Formoterol 160/4.5 1 PUFF INH IH SCH ×2 (10:58→21:51)
[2020-02-10] MEDS: Mirtazapine 15 MG TABLET PO SCH (20:07)
[2020-02-11 02:19] LABS: Hemoglobin 8.7 g/dL (12.9-16.9)
[2020-02-11 02:21] LABS: Basophils % 0.4 %; Eosinophils % 0.7 %; Hematocrit 28.4 % (37.5-50.1); Immature Granulocytes % 1.5 % (0-4); Immature Platelets 10.4 % (1.1-6.1); Lymphocytes # 0.2 K/mcL (0.6-4.6); Lymphocytes % 5.9 %; Mean Corpuscular HGB Conc 30.6 g/dL (31.6-35.5); Mean Corpuscular Hemoglobin 33.3 pg (28.0-33.3); Mean Corpuscular Volume 108.8 fL (83.0-100.0); Monocytes # 0.2 K/mcL (0.0-1.3); Monocytes % 8.1 %; Neutrophils # 2.3 K/mcL (1.6-8.9); Nucleated Red Blood Cells 0.7 /100 WBC (0); Red Blood Count 2.61 M/mcL (4.19-5.50); Red Cell Distribution Width 13.4 % (11.5-14.5); Segmented Neutrophils % 83.4 %; White Blood Count 2.7 K/mcL (4.3-11.1)
[2020-02-11 02:22] LABS: Calcium 7.4 mg/dL (8.6-10.3); Magnesium 1.9 mg/dL (1.6-2.6); Potassium 4.4 mEq/L (3.5-5.1)
[2020-02-11 03:13] LABS: Platelet Count 60 K/mcL (140-400)
[2020-02-11 03:14] LABS: Platelet Estimate Decreased (Normal)
[2020-02-11] MEDS: Ipratropium/Albuterol Neb 3 ML IH SCH ×4 (03:46→21:09)
[2020-02-11] MEDS: Levothyroxine 25 MCG TABLET PO SCH (05:23)
[2020-02-11] MEDS: MethylPREDNISolone 40 MG/ML VIAL IVP SCH ×3 (05:23→16:40)
[2020-02-11] MEDS: Metoprolol XL (24 HR) Succ 25 MG TAB.ER.24H PO SCH ×2 (09:24→21:20)
[2020-02-11] MEDS: Apixaban 5 MG TABLET PO SCH ×2 (09:25→21:20)
[2020-02-11] MEDS: Cyanocobalamin (B-12) 1,000 MCG TABLET PO SCH (09:25)
[2020-02-11] MEDS: DilTIAZem CD (24hr) 240 MG CAP.ER.24H PO SCH (09:25)
[2020-02-11] MEDS: Morphine Sulfate ER (12 HR) 30 MG TABLET.ER PO SCH ×2 (09:25→21:20)
[2020-02-11] MEDS: Loratadine 10 MG TABLET PO SCH (09:25)
[2020-02-11] MEDS: Doxycycline 100 MG CAPSULE PO SCH ×2 (09:26→21:20)
[2020-02-11] MEDS: Piperacillin/Tazobactam 3.375 GM in 0.9 % Sodium Chloride Mini Bag 100 ML IVPB SCH ×3 (09:27→23:40)
[2020-02-11] MEDS ORDERED: Aminoglycoside Consult 1 EACH MC ONE (09:48)
[2020-02-11] MEDS: Budesonide/Formoterol 160/4.5 1 PUFF INH IH SCH ×2 (09:59→21:09)
[2020-02-11] MEDS ORDERED: Dextrose Gel 15 GM/37.5 ML TUBE PO PRN ×2 (10:10)
[2020-02-11] MEDS ORDERED: D5% in Water 1,000 ML IVC PRN (10:10)
[2020-02-11] MEDS ORDERED: *HR* Dextrose 50 % in Water (Vial) 50 ML VIAL IVP PRN (10:10)
[2020-02-11] MEDS: Insulin LISPRO 300 UNITS/3 ML VIAL SQ SCH ×3 (13:04→21:15)
[2020-02-11 14:39] LABS: Uric Acid 4.5 mg/dL (2.3-7.6)
[2020-02-11] MEDS ORDERED: 0.9 % Sodium Chloride 1,000 ML IVC SCH (15:00)
[2020-02-11 15:25] LABS: Hepatitis B Surface Antigen Nonreactive (Nonreactive)
[2020-02-11] MEDS ORDERED: Furosemide 20 MG/2 ML VIAL IVP ONE (15:32)
[2020-02-11 15:54] LABS: Hepatitis A Antibody IgM Nonreactive (Nonreactive); Hepatitis B Core IgM Nonreactive (Nonreactive)
[2020-02-11 15:56] LABS: Hepatitis C Virus Antibody Nonreactive (Nonreactive)
[2020-02-11] MEDS: Mirtazapine 15 MG TABLET PO SCH (21:20)
[2020-02-11] MEDS ORDERED: *HR* Metoprolol 5 MG/5 ML VIAL IVP PRN (23:30)
[2020-02-12 01:36] LABS: Bilirubin,Urine Negative (Negative); Blood,Urine Trace (Negative); Clarity,Urine Turbid (Clear); Color,Urine Light-Yellow (Yellow); Glucose,Urine (UA) 500 mg/dL (Normal); Hyaline Casts,Urine Few per lpf (None Seen); Ketones,Urine Negative (Negative); Leukocyte Esterase,Urine Negative (Negative); Mucus,Urine Few per lpf (None-Few); Nitrite,Urine Negative (Negative); PH,Urine 5.5 pH Units (5.0-8.0); Protein,Urine Trace mg/dL (Neg-Trace); RBC,Urine 0-3 per hpf (0-3); Specific Gravity,Urine 1.021 (1.010-1.025); Squamous Epithelial Cell,Urine Few per hpf (None-Few); Uric Acid Crystals,Urine Present; Urobilinogen,Urine Normal (Normal); WBC,Urine 0-3 per hpf (0-3)
[2020-02-12 03:00] LABS: Hemoglobin 8.3 g/dL (12.9-16.9); Mean Corpuscular Volume 109.6 fL (83.0-100.0); Segmented Neutrophils % 85.6 %
[2020-02-12 03:02] LABS: Basophils % 0.3 %; Hematocrit 27.4 % (37.5-50.1); Immature Granulocytes % 1.9 % (0-4); Immature Platelets 5.7 % (1.1-6.1); Lymphocytes # 0.1 K/mcL (0.6-4.6); Lymphocytes % 4.5 %; Mean Corpuscular HGB Conc 30.3 g/dL (31.6-35.5); Mean Corpuscular Hemoglobin 33.2 pg (28.0-33.3); Mean Platelet Volume 10.9 fL (9.4-12.4); Monocytes # 0.2 K/mcL (0.0-1.3); Monocytes % 7.7 %; Neutrophils # 2.7 K/mcL (1.6-8.9); Nucleated Red Blood Cells 0.6 /100 WBC (0); Red Cell Distribution Width 13.2 % (11.5-14.5); White Blood Count 3.1 K/mcL (4.3-11.1)
[2020-02-12 03:05] LABS: Platelet Count 90 K/mcL (140-400)
[2020-02-12 03:17] LABS: BUN/Creatinine Ratio 28 (6-26); Blood Urea Nitrogen 36 mg/dL (8-23); Calcium 7.8 mg/dL (8.6-10.3); Carbon Dioxide 37 mEq/L (23-29); Chloride 99 mEq/L (98-107); Glucose 299 mg/dL (70-105); Osmolality,Calculated 309 (280-300); Potassium 4.5 mEq/L (3.5-5.1); Sodium 140 mEq/L (136-145); eGFR For African Americans > 60 (> 60); eGFR For Non-African Americans 55 (> 60)
[2020-02-12] MEDS: Ipratropium Neb 0.5 MG NEBULIZER IH SCH ×4 (03:26→21:25)
[2020-02-12] MEDS: Levalbuterol Neb 1.25 MG/3 ML IH SCH ×4 (03:26→21:25)
[2020-02-12 03:30] LABS: Platelet Estimate Slight Decrease (Normal)
[2020-02-12] MEDS: MethylPREDNISolone 40 MG/ML VIAL IVP SCH (05:22)
[2020-02-12] MEDS: Levothyroxine 25 MCG TABLET PO SCH (05:22)
[2020-02-12] MEDS: Morphine Sulfate ER (12 HR) 30 MG TABLET.ER PO SCH ×2 (08:29→20:58)
[2020-02-12] MEDS: Doxycycline 100 MG CAPSULE PO SCH ×2 (08:29→20:58)
[2020-02-12] MEDS: Piperacillin/Tazobactam 3.375 GM in 0.9 % Sodium Chloride Mini Bag 100 ML IVPB SCH ×3 (08:30→23:58)
[2020-02-12] MEDS: Cyanocobalamin (B-12) 1,000 MCG TABLET PO SCH (08:30)
[2020-02-12] MEDS: Apixaban 5 MG TABLET PO SCH ×2 (08:30→20:58)
[2020-02-12] MEDS: Metoprolol XL (24 HR) Succ 25 MG TAB.ER.24H PO SCH ×2 (08:30→20:58)
[2020-02-12] MEDS: Loratadine 10 MG TABLET PO SCH (08:30)
[2020-02-12] MEDS: DilTIAZem CD (24hr) 240 MG CAP.ER.24H PO SCH (08:30)
[2020-02-12] MEDS: Insulin LISPRO 300 UNITS/3 ML VIAL SQ SCH ×4 (08:31→21:00)
[2020-02-12] MEDS: Furosemide 20 MG/2 ML VIAL IVP SCH (08:31)
[2020-02-12] MEDS: Budesonide/Formoterol 160/4.5 1 PUFF INH IH SCH ×2 (10:57→21:25)
[2020-02-12] MEDS: Mirtazapine 15 MG TABLET PO SCH (20:58)
[2020-02-13] MEDS: Ipratropium Neb 0.5 MG NEBULIZER IH SCH (03:29)
[2020-02-13] MEDS: Levalbuterol Neb 1.25 MG/3 ML IH SCH ×4 (03:29→21:41)
[2020-02-13] MEDS: Levothyroxine 25 MCG TABLET PO SCH (05:09)
[2020-02-13 05:27] LABS: Hemoglobin 8.7 g/dL (12.9-16.9)
[2020-02-13 05:29] LABS: Hematocrit 28.3 % (37.5-50.1); Immature Platelets 6.9 % (1.1-6.1); Mean Corpuscular HGB Conc 30.7 g/dL (31.6-35.5); Mean Corpuscular Hemoglobin 33.2 pg (28.0-33.3); Mean Platelet Volume 10.9 fL (9.4-12.4); Nucleated Red Blood Cells 2.3 /100 WBC (0); Platelet Count 104 K/mcL (140-400); Red Blood Count 2.62 M/mcL (4.19-5.50); Red Cell Distribution Width 13.2 % (11.5-14.5); White Blood Count 3.9 K/mcL (4.3-11.1)
[2020-02-13 05:46] LABS: BUN/Creatinine Ratio 27 (6-26); Blood Urea Nitrogen 33 mg/dL (8-23); Calcium 7.9 mg/dL (8.6-10.3); Carbon Dioxide 39 mEq/L (23-29); Chloride 100 mEq/L (98-107); Glucose 158 mg/dL (70-105); Osmolality,Calculated 305 (280-300); Potassium 4.2 mEq/L (3.5-5.1); Sodium 142 mEq/L (136-145); eGFR For African Americans > 60 (> 60); eGFR For Non-African Americans 58 (> 60)
[2020-02-13 06:05] LABS: Basophilic Stippling 1+ (Not Present); Large Platelets Present (Not Present); Lymphocytes # 0.9 K/mcL (0.6-4.6); Neutrophils # 2.9 K/mcL (1.6-8.9); Platelet Estimate Slight Decrease (Normal)
[2020-02-13] MEDS: DilTIAZem CD (24hr) 240 MG CAP.ER.24H PO SCH (07:35)
[2020-02-13] MEDS: Doxycycline 100 MG CAPSULE PO SCH ×2 (07:35→20:25)
[2020-02-13] MEDS: Morphine Sulfate ER (12 HR) 30 MG TABLET.ER PO SCH ×2 (07:35→20:25)
[2020-02-13] MEDS: Loratadine 10 MG TABLET PO SCH (07:35)
[2020-02-13] MEDS: Metoprolol XL (24 HR) Succ 25 MG TAB.ER.24H PO SCH ×2 (07:35→20:25)
[2020-02-13] MEDS: Apixaban 5 MG TABLET PO SCH ×2 (07:36→20:25)
[2020-02-13] MEDS: Insulin LISPRO 300 UNITS/3 ML VIAL SQ SCH ×4 (07:36→20:25)
[2020-02-13] MEDS: Cyanocobalamin (B-12) 1,000 MCG TABLET PO SCH (07:36)
[2020-02-13] MEDS: Piperacillin/Tazobactam 3.375 GM in 0.9 % Sodium Chloride Mini Bag 100 ML IVPB SCH ×2 (07:36→16:11)
[2020-02-13] MEDS: Furosemide 20 MG/2 ML VIAL IVP SCH (07:36)
[2020-02-13] MEDS ORDERED: MethylPREDNISolone 40 MG/ML VIAL IVP SCH (09:00)
[2020-02-13] MEDS: predniSONE 20 MG TABLET PO SCH (09:32)
[2020-02-13] MEDS: Budesonide/Formoterol 160/4.5 1 PUFF INH IH SCH ×2 (10:06→21:41)
[2020-02-13] MEDS: Gabapentin 100 MG CAPSULE PO SCH ×2 (16:11→20:25)
[2020-02-13] MEDS ORDERED: MethylPREDNISolone 40 MG/ML VIAL IVP ONE (18:00)
[2020-02-13] MEDS: Mirtazapine 15 MG TABLET PO SCH (20:25)
[2020-02-14] MEDS: Piperacillin/Tazobactam 3.375 GM in 0.9 % Sodium Chloride Mini Bag 100 ML IVPB SCH ×4 (00:12→23:56)
[2020-02-14] MEDS: Levalbuterol Neb 1.25 MG/3 ML IH SCH ×4 (03:47→21:53)
[2020-02-14] MEDS: Levothyroxine 25 MCG TABLET PO SCH (05:09)
[2020-02-14] MEDS: Budesonide/Formoterol 160/4.5 1 PUFF INH IH SCH ×2 (09:03→21:53)
[2020-02-14] MEDS: Doxycycline 100 MG CAPSULE PO SCH ×2 (10:34→21:39)
[2020-02-14] MEDS: Loratadine 10 MG TABLET PO SCH (10:36)
[2020-02-14] MEDS: Cyanocobalamin (B-12) 1,000 MCG TABLET PO SCH (10:37)
[2020-02-14] MEDS: Morphine Sulfate ER (12 HR) 30 MG TABLET.ER PO SCH ×2 (10:37→21:39)
[2020-02-14] MEDS: predniSONE 20 MG TABLET PO SCH (10:38)
[2020-02-14] MEDS: Apixaban 5 MG TABLET PO SCH ×2 (10:38→21:39)
[2020-02-14] MEDS: Gabapentin 100 MG CAPSULE PO SCH ×3 (10:38→21:39)
[2020-02-14] MEDS: DilTIAZem CD (24hr) 240 MG CAP.ER.24H PO SCH (10:38)
[2020-02-14] MEDS: Insulin LISPRO 300 UNITS/3 ML VIAL SQ SCH ×4 (10:39→21:40)
[2020-02-14] MEDS: Metoprolol XL (24 HR) Succ 25 MG TAB.ER.24H PO SCH ×2 (10:39→21:39)
[2020-02-14] MEDS: Furosemide 20 MG/2 ML VIAL IVP SCH (10:39)
[2020-02-14 15:05] LABS: Basophils % 0.3 %; Hematocrit 32.6 % (37.5-50.1); Immature Granulocytes % 4.6 % (0-4); Lymphocytes # 0.1 K/mcL (0.6-4.6); Lymphocytes % 1.4 %; Mean Corpuscular HGB Conc 30.7 g/dL (31.6-35.5); Mean Corpuscular Hemoglobin 34.1 pg (28.0-33.3); Mean Corpuscular Volume 111.3 fL (83.0-100.0); Mean Platelet Volume 11.1 fL (9.4-12.4); Monocytes # 0.5 K/mcL (0.0-1.3); Neutrophils # 8.7 K/mcL (1.6-8.9); Platelet Count 168 K/mcL (140-400); Red Blood Count 2.93 M/mcL (4.19-5.50); Red Cell Distribution Width 13.5 % (11.5-14.5); Segmented Neutrophils % 88.7 %
[2020-02-14 15:17] LABS: White Blood Count 9.8 K/mcL (4.3-11.1)
[2020-02-14 15:32] LABS: BUN/Creatinine Ratio 27 (6-26); Blood Urea Nitrogen 36 mg/dL (8-23); Calcium 8.4 mg/dL (8.6-10.3); Carbon Dioxide 36 mEq/L (23-29); Chloride 95 mEq/L (98-107); Glucose 409 mg/dL (70-105); Osmolality,Calculated 314 (280-300); Potassium 4.5 mEq/L (3.5-5.1); Sodium 139 mEq/L (136-145); eGFR For African Americans > 60 (> 60); eGFR For Non-African Americans 52 (> 60)
[2020-02-14 16:07] LABS: Macrocytosis Present (Not Present)
[2020-02-14] MEDS: Mirtazapine 15 MG TABLET PO SCH (21:39)
[2020-02-15 03:35] LABS: Hematocrit 27.3 % (37.5-50.1); Mean Corpuscular HGB Conc 30.4 g/dL (31.6-35.5); Mean Corpuscular Hemoglobin 33.9 pg (28.0-33.3); Mean Corpuscular Volume 111.4 fL (83.0-100.0); Mean Platelet Volume 11.3 fL (9.4-12.4); Nucleated Red Blood Cells 1.4 /100 WBC (0); Platelet Count 121 K/mcL (140-400); Red Blood Count 2.45 M/mcL (4.19-5.50); Red Cell Distribution Width 13.4 % (11.5-14.5); White Blood Count 5.6 K/mcL (4.3-11.1)
[2020-02-15 03:56] LABS: Hemoglobin 8.3 g/dL (12.9-16.9)
[2020-02-15] MEDS: Levalbuterol Neb 1.25 MG/3 ML IH SCH ×2 (03:59→11:03)
[2020-02-15 04:07] LABS: BUN/Creatinine Ratio 28 (6-26); Blood Urea Nitrogen 38 mg/dL (8-23); Calcium 8.2 mg/dL (8.6-10.3); Carbon Dioxide 38 mEq/L (23-29); Chloride 99 mEq/L (98-107); Glucose 183 mg/dL (70-105); Osmolality,Calculated 308 (280-300); Potassium 4.3 mEq/L (3.5-5.1); Sodium 142 mEq/L (136-145); eGFR For African Americans > 60 (> 60); eGFR For Non-African Americans 52 (> 60)
[2020-02-15 04:30] LABS: Lymphocytes # 0.5 K/mcL (0.6-4.6); Monocytes # 0.6 K/mcL (0.0-1.3); Neutrophils # 4.4 K/mcL (1.6-8.9)
[2020-02-15 04:31] LABS: Platelet Estimate Slight Decrease (Normal)
[2020-02-15 04:33] LABS: Large Platelets Present (Not Present)
[2020-02-15] MEDS: Levothyroxine 25 MCG TABLET PO SCH (05:26)
[2020-02-15 07:46] VITALS: BP 105/70
[2020-02-15] MEDS ORDERED: Furosemide 20 MG TABLET PO SCH (09:00)
[2020-02-15] MEDS: Gabapentin 100 MG CAPSULE PO SCH (10:01)
[2020-02-15] MEDS: Apixaban 5 MG TABLET PO SCH (10:01)
[2020-02-15] MEDS: Cyanocobalamin (B-12) 1,000 MCG TABLET PO SCH (10:01)
[2020-02-15] MEDS: DilTIAZem CD (24hr) 240 MG CAP.ER.24H PO SCH (10:03)
[2020-02-15] MEDS: predniSONE 20 MG TABLET PO SCH (10:03)
[2020-02-15] MEDS: Loratadine 10 MG TABLET PO SCH (10:03)
[2020-02-15] MEDS: Morphine Sulfate ER (12 HR) 30 MG TABLET.ER PO SCH (10:03)
[2020-02-15] MEDS: Doxycycline 100 MG CAPSULE PO SCH (10:03)
[2020-02-15] MEDS: Insulin LISPRO 300 UNITS/3 ML VIAL SQ SCH (10:04)
[2020-02-15] MEDS: Metoprolol XL (24 HR) Succ 25 MG TAB.ER.24H PO SCH (10:04)
[2020-02-15] MEDS: Piperacillin/Tazobactam 3.375 GM in 0.9 % Sodium Chloride Mini Bag 100 ML IVPB SCH (10:05)
[2020-02-15] MEDS: Budesonide/Formoterol 160/4.5 1 PUFF INH IH SCH (11:03)
== END 2020-02-15 15:50 | disposition home health service (06) | DRG 871 ==
LOC: EMEROOARM 17:27 → 2ANU 17:27 → SUATTDRO 21:04 → 2ANU 21:52 → SUATTDRO 02-08 17:51 → 2ANU 02-11 14:29
PROVIDERS: ADMIT Internal Medicine; ATTEND Internal Medicine

== ENCOUNTER 2020-04-30 13:11 | Inpatient (IN) ==
[2020-04-30] MEDS ORDERED: Azithromycin 500 MG in 0.9 % Sodium Chloride 250 ML IVPB ONE (13:18)
[2020-04-30] MEDS ORDERED: levoFLOXacin 750 MG/150 ML 750 MG/150 ML BAG IVPB ONE (13:18)
[2020-04-30] MEDS ORDERED: methylPREDNISolone 125 MG/2 ML VIAL IVP ONE (13:18)
[2020-04-30] MEDS ORDERED: Ipratropium/Albuterol Neb 3 ML IH ONE ×2 (13:18→19:38)
[2020-04-30] MEDS ORDERED: cefTRIAXone 1,000 MG in Water for inj. (sterile) 10 ML IVP ONE (13:18)
[2020-04-30 13:55] LABS: INR 1.4; Prothrombin Time 16.3 Seconds (9.4-12.1)
[2020-04-30 13:58] LABS: Activated Partial Thrombo Time 29.9 Seconds (26.0-36.0)
[2020-04-30 14:02] LABS: Basophils % 0.1 %; Hematocrit 30.1 % (37.5-50.1); Hemoglobin 9.2 g/dL (12.9-16.9); Immature Granulocytes % 1.3 % (0-4); Lymphocytes # 0.4 K/mcL (0.6-4.6); Lymphocytes % 5.2 %; Mean Corpuscular HGB Conc 30.6 g/dL (31.6-35.5); Mean Corpuscular Hemoglobin 35.1 pg (28.0-33.3); Mean Corpuscular Volume 114.9 fL (83.0-100.0); Mean Platelet Volume 9.6 fL (9.4-12.4); Monocytes # 0.4 K/mcL (0.0-1.3); Monocytes % 6.3 %; Nucleated Red Blood Cells 0.3 /100 WBC (0); Platelet Count 171 K/mcL (140-400); Red Blood Count 2.62 M/mcL (4.19-5.50); Red Cell Distribution Width 15.6 % (11.5-14.5); Segmented Neutrophils % 87.1 %; White Blood Count 6.9 K/mcL (4.3-11.1)
[2020-04-30 14:07] LABS: BUN/Creatinine Ratio 27 (6-26); Blood Urea Nitrogen 27 mg/dL (8-23); Calcium 9.4 mg/dL (8.6-10.3); Carbon Dioxide 37 mEq/L (23-29); Chloride 97 mEq/L (98-107); Glucose 140 mg/dL (70-105); Osmolality,Calculated 295 (280-300); Potassium 4.9 mEq/L (3.5-5.1); Sodium 139 mEq/L (136-145); Troponin I < 0.03 ng/mL (< 0.04); eGFR For African Americans > 60 (> 60); eGFR For Non-African Americans > 60 (> 60)
[2020-04-30 14:19] LABS: Bilirubin,Urine Negative (Negative); Blood,Urine Negative (Negative); Clarity,Urine Clear (Clear); Color,Urine Colorless (Yellow); Glucose,Urine (UA) Normal (Normal); Ketones,Urine Negative (Negative); Leukocyte Esterase,Urine Negative (Negative); Nitrite,Urine Negative (Negative); Protein,Urine Negative (Neg-Trace); Specific Gravity,Urine 1.013 (1.010-1.025); Urobilinogen,Urine Normal (Normal)
[2020-04-30 14:33] LABS: Anisocytosis 1+ (Not Present)
[2020-04-30 14:34] LABS: Platelet Estimate Normal (Normal)
[2020-04-30 15:10] LABS: VBG HCO3 35 mEq/L (21-27); VBG PCO2 51 mmHg (41-51); VBG PH 7.44 pH Units (7.32-7.42); VBG PO2 104 mmHg (25-50)
[2020-04-30 15:12] LABS: Adenovirus Not Detected (Not Detect); Bordetella Pertussis Not Detected (Not Detect); Chlamydophila pneumoniae Not Detected (Not Detect); Coronavirus 229E Not Detected (Not Detect); Coronavirus HKU1 Not Detected (Not Detect); Coronavirus NL63 Not Detected (Not Detect); Coronavirus OC43 Not Detected (Not Detect); Human Metapneumovirus Not Detected (Not Detect); Human Rhinovirus/Enterovirus Not Detected (Not Detect); Influenza A Subtype 2009 H1 Not Detected (Not Detect); Influenza B Not Detected (Not Detect); Mycoplasma pneumoniae Not Detected (Not Detect); Parainfluenza Virus 1 Not Detected (Not Detect); Parainfluenza Virus 2 Not Detected (Not Detect); Parainfluenza Virus 3 Not Detected (Not Detect); Parainfluenza Virus 4 Not Detected (Not Detect); Respiratory Syncytial Virus Not Detected (Not Detect); SARS-CoV-2 Not Detected (Not Detect)
[2020-04-30] MEDS ORDERED: Naloxone 0.4 MG/ML INJ IVP PRN (17:56)
[2020-04-30] MEDS ORDERED: Albuterol 2.5 MG/3 ML NEBULIZER IH PRN (18:10)
[2020-04-30] MEDS ORDERED: GuaiFENesin Liq 200 MG/10 ML UDC PO PRN (18:10)
[2020-04-30] MEDS ORDERED: Melatonin 3 MG TABLET PO PRN (18:10)
[2020-04-30] MEDS ORDERED: NON-FORMULARY MEDICATION 1 EACH EACH (Alendronate Sodium [Fosamax] 35 MG) PO SCH (18:15)
[2020-04-30 18:23] LABS: Magnesium 2.1 mg/dL (1.6-2.6)
[2020-04-30] MEDS: Loratadine 10 MG TABLET PO SCH (18:56)
[2020-04-30] MEDS ORDERED: DilTIAZem CD (24hr) 240 MG CAP.ER.24H PO SCH (19:00)
[2020-04-30] MEDS: Furosemide 20 MG/2 ML VIAL IVP SCH (19:36)
[2020-04-30] MEDS ORDERED: Ipratropium/Albuterol Neb 3 ML ONE (19:37)
[2020-04-30] MEDS ORDERED: Ipratropium/Albuterol Neb 3 ML IH PRN (19:38)
[2020-04-30] MEDS: Metoprolol XL (24 HR) Succ 25 MG TAB.ER.24H PO SCH (19:56)
[2020-04-30] MEDS: Mirtazapine 15 MG TABLET PO SCH (19:56)
[2020-04-30] MEDS: Apixaban 5 MG TABLET PO SCH (19:56)
[2020-04-30] MEDS: Gabapentin 100 MG CAPSULE PO SCH (19:56)
[2020-04-30] MEDS: Meropenem 1,000 MG in Water for inj. (sterile) 20 ML IVP SCH (19:57)
[2020-04-30] MEDS: Ipratropium/Albuterol Neb 3 ML IH SCH (21:26)
[2020-04-30] MEDS: Budesonide/Formoterol 160/4.5 1 PUFF INH IH SCH (21:26)
[2020-04-30] MEDS: Tobramycin for INHALATION 300 MG/5 ML AMPUL IH SCH (21:27)
[2020-05-01] MEDS: Ipratropium/Albuterol Neb 3 ML IH SCH ×4 (03:25→21:28)
[2020-05-01 04:22] LABS: Basophils % 0.2 %; Hematocrit 26.1 % (37.5-50.1); Hemoglobin 8.2 g/dL (12.9-16.9); Immature Granulocytes % 1.5 % (0-4); Lymphocytes # 0.3 K/mcL (0.6-4.6); Lymphocytes % 7.4 %; Mean Corpuscular HGB Conc 31.4 g/dL (31.6-35.5); Mean Corpuscular Hemoglobin 34.7 pg (28.0-33.3); Mean Corpuscular Volume 110.6 fL (83.0-100.0); Mean Platelet Volume 9.5 fL (9.4-12.4); Monocytes # 0.3 K/mcL (0.0-1.3); Monocytes % 6.9 %; Neutrophils # 3.9 K/mcL (1.6-8.9); Nucleated Red Blood Cells 0.7 /100 WBC (0); Platelet Count 145 K/mcL (140-400); Red Blood Count 2.36 M/mcL (4.19-5.50); Red Cell Distribution Width 15.2 % (11.5-14.5); White Blood Count 4.6 K/mcL (4.3-11.1)
[2020-05-01 04:42] LABS: BUN/Creatinine Ratio 26 (6-26); Blood Urea Nitrogen 26 mg/dL (8-23); Calcium 8.8 mg/dL (8.6-10.3); Carbon Dioxide 35 mEq/L (23-29); Chloride 96 mEq/L (98-107); Glucose 149 mg/dL (70-105); Osmolality,Calculated 292 (280-300); Sodium 137 mEq/L (136-145); eGFR For African Americans > 60 (> 60); eGFR For Non-African Americans > 60 (> 60)
[2020-05-01 05:34] LABS: Macrocytosis Present (Not Present)
[2020-05-01 05:35] LABS: Anisocytosis 1+ (Not Present); Platelet Estimate Normal (Normal)
[2020-05-01] MEDS: Levothyroxine 25 MCG TABLET PO SCH (05:38)
[2020-05-01] MEDS: Meropenem 1,000 MG in Water for inj. (sterile) 20 ML IVP SCH ×3 (05:38→20:39)
[2020-05-01] MEDS: *HR* OxyCODONE Immed Rel 5 MG TABLET PO PRN ×2 (05:42→18:13)
[2020-05-01] MEDS ORDERED: Ondansetron 4 MG/2 ML VIAL IVP PRN (08:03)
[2020-05-01] MEDS: Cholecalciferol (D-3) 1,000 UNIT (25MCG) TABLET PO SCH (08:45)
[2020-05-01] MEDS: Furosemide 20 MG/2 ML VIAL IVP SCH ×2 (08:45→20:38)
[2020-05-01] MEDS: Cyanocobalamin (B-12) 1,000 MCG TABLET PO SCH (08:46)
[2020-05-01] MEDS: DilTIAZem CD (24hr) 240 MG CAP.ER.24H PO SCH (08:46)
[2020-05-01] MEDS: Gabapentin 100 MG CAPSULE PO SCH ×3 (08:46→20:38)
[2020-05-01] MEDS: Metoprolol XL (24 HR) Succ 25 MG TAB.ER.24H PO SCH ×2 (08:47→20:38)
[2020-05-01] MEDS: Loratadine 10 MG TABLET PO SCH (08:47)
[2020-05-01] MEDS: Apixaban 5 MG TABLET PO SCH ×2 (08:47→20:38)
[2020-05-01] MEDS: Budesonide/Formoterol 160/4.5 1 PUFF INH IH SCH ×2 (11:39→21:28)
[2020-05-01] MEDS: Tobramycin for INHALATION 300 MG/5 ML AMPUL IH SCH ×2 (13:34→21:28)
[2020-05-01] MEDS: Azithromycin 500 MG in 0.9 % Sodium Chloride 250 ML IVPB SCH (18:13)
[2020-05-01] MEDS: predniSONE 20 MG TABLET PO SCH (20:37)
[2020-05-01] MEDS: Mirtazapine 15 MG TABLET PO SCH (20:37)
[2020-05-02 01:36] LABS: Hematocrit 27.2 % (37.5-50.1); Hemoglobin 8.5 g/dL (12.9-16.9); Mean Corpuscular HGB Conc 31.3 g/dL (31.6-35.5); Mean Corpuscular Hemoglobin 34.6 pg (28.0-33.3); Mean Corpuscular Volume 110.6 fL (83.0-100.0); Mean Platelet Volume 9.8 fL (9.4-12.4); Platelet Count 146 K/mcL (140-400); Red Blood Count 2.46 M/mcL (4.19-5.50); Red Cell Distribution Width 15.3 % (11.5-14.5); White Blood Count 4.7 K/mcL (4.3-11.1)
[2020-05-02 01:57] LABS: BUN/Creatinine Ratio 24 (6-26); Blood Urea Nitrogen 27 mg/dL (8-23); Calcium 8.6 mg/dL (8.6-10.3); Carbon Dioxide 39 mEq/L (23-29); Chloride 94 mEq/L (98-107); Glucose 160 mg/dL (70-105); Osmolality,Calculated 299 (280-300); Potassium 3.9 mEq/L (3.5-5.1); Sodium 140 mEq/L (136-145); eGFR For African Americans > 60 (> 60); eGFR For Non-African Americans > 60 (> 60)
[2020-05-02] MEDS: Ipratropium/Albuterol Neb 3 ML IH SCH ×4 (04:11→21:54)
[2020-05-02] MEDS: Meropenem 1,000 MG in Water for inj. (sterile) 20 ML IVP SCH ×3 (04:45→20:15)
[2020-05-02] MEDS: Levothyroxine 25 MCG TABLET PO SCH (05:54)
[2020-05-02] MEDS: Budesonide/Formoterol 160/4.5 1 PUFF INH IH SCH ×2 (09:53→21:57)
[2020-05-02] MEDS: Cholecalciferol (D-3) 1,000 UNIT (25MCG) TABLET PO SCH (10:39)
[2020-05-02] MEDS: Apixaban 5 MG TABLET PO SCH ×2 (10:39→20:11)
[2020-05-02] MEDS: Cyanocobalamin (B-12) 1,000 MCG TABLET PO SCH (10:39)
[2020-05-02] MEDS: predniSONE 20 MG TABLET PO SCH (10:39)
[2020-05-02] MEDS: DilTIAZem CD (24hr) 240 MG CAP.ER.24H PO SCH (10:40)
[2020-05-02] MEDS: Loratadine 10 MG TABLET PO SCH (10:40)
[2020-05-02] MEDS: Gabapentin 100 MG CAPSULE PO SCH ×3 (10:40→20:12)
[2020-05-02] MEDS: Furosemide 20 MG/2 ML VIAL IVP SCH ×2 (10:40→20:13)
[2020-05-02] MEDS: Metoprolol XL (24 HR) Succ 25 MG TAB.ER.24H PO SCH ×2 (10:40→20:12)
[2020-05-02] MEDS: Tobramycin for INHALATION 300 MG/5 ML AMPUL IH SCH ×2 (10:41→21:55)
[2020-05-02] MEDS ORDERED: Morphine Sulfate ER (12 HR) 30 MG TABLET.ER PO SCH (11:45)
[2020-05-02] MEDS: Morphine Sulfate Oral CONC 10 MG/0.5 ML ORAL.SYG PO PRN ×2 (12:28→18:32)
[2020-05-02] MEDS: polyethylene glycoL 3350 17 GM POWD.PACK PO PRN (12:44)
[2020-05-02] MEDS ORDERED: 3% Sodium Chloride Inhalation 4 ML VIAL.NEB IH ONE (13:30)
[2020-05-02] MEDS: Azithromycin 500 MG in 0.9 % Sodium Chloride 250 ML IVPB SCH (18:28)
[2020-05-02] MEDS: Mirtazapine 15 MG TABLET PO SCH (20:12)
[2020-05-02] MEDS: Morphine Sulfate ER (12 HR) 30 MG TABLET.ER PO SCH (21:49)
[2020-05-03] MEDS: Morphine Sulfate Oral CONC 10 MG/0.5 ML ORAL.SYG PO PRN ×2 (01:34→08:28)
[2020-05-03] MEDS: Ipratropium/Albuterol Neb 3 ML IH SCH ×4 (03:26→21:34)
[2020-05-03] MEDS: Meropenem 1,000 MG in Water for inj. (sterile) 20 ML IVP SCH ×3 (04:17→21:10)
[2020-05-03] MEDS: Morphine Sulfate ER (12 HR) 30 MG TABLET.ER PO SCH ×3 (05:08→22:19)
[2020-05-03] MEDS: Levothyroxine 25 MCG TABLET PO SCH (05:08)
[2020-05-03] MEDS: Furosemide 20 MG/2 ML VIAL IVP SCH (08:21)
[2020-05-03] MEDS: Cholecalciferol (D-3) 1,000 UNIT (25MCG) TABLET PO SCH (08:22)
[2020-05-03] MEDS: Cyanocobalamin (B-12) 1,000 MCG TABLET PO SCH (08:22)
[2020-05-03] MEDS: Metoprolol XL (24 HR) Succ 25 MG TAB.ER.24H PO SCH ×2 (08:22→21:10)
[2020-05-03] MEDS: Apixaban 5 MG TABLET PO SCH ×2 (08:22→21:10)
[2020-05-03] MEDS: Loratadine 10 MG TABLET PO SCH (08:22)
[2020-05-03] MEDS: DilTIAZem CD (24hr) 240 MG CAP.ER.24H PO SCH (08:22)
[2020-05-03] MEDS: predniSONE 20 MG TABLET PO SCH (08:22)
[2020-05-03] MEDS: Gabapentin 100 MG CAPSULE PO SCH ×3 (08:22→21:10)
[2020-05-03] MEDS: Budesonide/Formoterol 160/4.5 1 PUFF INH IH SCH ×2 (10:54→21:34)
[2020-05-03] MEDS: Tobramycin for INHALATION 300 MG/5 ML AMPUL IH SCH ×2 (10:54→21:34)
[2020-05-03] MEDS ORDERED: Ringers Solution, Lactated 1,000 ML IVC ONE (13:21)
[2020-05-03] MEDS: Azithromycin 500 MG in 0.9 % Sodium Chloride 250 ML IVPB SCH (18:17)
[2020-05-03] MEDS: Mirtazapine 15 MG TABLET PO SCH (21:10)
[2020-05-04] MEDS: Ipratropium/Albuterol Neb 3 ML IH SCH ×4 (03:15→21:50)
[2020-05-04] MEDS: Meropenem 1,000 MG in Water for inj. (sterile) 20 ML IVP SCH ×3 (04:39→21:07)
[2020-05-04] MEDS: Morphine Sulfate ER (12 HR) 30 MG TABLET.ER PO SCH ×3 (05:52→22:20)
[2020-05-04] MEDS: Levothyroxine 25 MCG TABLET PO SCH (05:52)
[2020-05-04] MEDS: Loratadine 10 MG TABLET PO SCH (08:59)
[2020-05-04] MEDS: DilTIAZem CD (24hr) 240 MG CAP.ER.24H PO SCH (08:59)
[2020-05-04] MEDS: Gabapentin 100 MG CAPSULE PO SCH ×3 (08:59→21:07)
[2020-05-04] MEDS: Cholecalciferol (D-3) 1,000 UNIT (25MCG) TABLET PO SCH (08:59)
[2020-05-04] MEDS: predniSONE 20 MG TABLET PO SCH (08:59)
[2020-05-04] MEDS: Furosemide 20 MG TABLET PO SCH (08:59)
[2020-05-04] MEDS: Apixaban 5 MG TABLET PO SCH ×2 (08:59→21:07)
[2020-05-04] MEDS: Metoprolol XL (24 HR) Succ 25 MG TAB.ER.24H PO SCH ×2 (08:59→21:08)
[2020-05-04] MEDS: Cyanocobalamin (B-12) 1,000 MCG TABLET PO SCH (09:00)
[2020-05-04] MEDS: Budesonide/Formoterol 160/4.5 1 PUFF INH IH SCH ×2 (09:32→21:49)
[2020-05-04] MEDS: Tobramycin for INHALATION 300 MG/5 ML AMPUL IH SCH ×2 (09:34→21:50)
[2020-05-04] MEDS: polyethylene glycoL 3350 17 GM POWD.PACK PO PRN (10:10)
[2020-05-04] MEDS: Sennosides 8.6 MG TABLET PO SCH (13:03)
[2020-05-04] MEDS: Azithromycin 500 MG in 0.9 % Sodium Chloride 250 ML IVPB SCH (18:51)
[2020-05-04] MEDS: Mirtazapine 15 MG TABLET PO SCH (21:07)
[2020-05-05 01:21] LABS: Hematocrit 30.1 % (37.5-50.1); Hemoglobin 9.5 g/dL (12.9-16.9); Mean Corpuscular HGB Conc 31.6 g/dL (31.6-35.5); Mean Corpuscular Hemoglobin 34.8 pg (28.0-33.3); Mean Corpuscular Volume 110.3 fL (83.0-100.0); Mean Platelet Volume 10.1 fL (9.4-12.4); Platelet Count 149 K/mcL (140-400); Red Blood Count 2.73 M/mcL (4.19-5.50); Red Cell Distribution Width 15.5 % (11.5-14.5)
[2020-05-05 01:23] LABS: White Blood Count 14.5 K/mcL (4.3-11.1)
[2020-05-05 01:41] LABS: BUN/Creatinine Ratio 34 (6-26); Blood Urea Nitrogen 32 mg/dL (8-23); Calcium 8.6 mg/dL (8.6-10.3); Carbon Dioxide 36 mEq/L (23-29); Chloride 98 mEq/L (98-107); Glucose 144 mg/dL (70-105); Magnesium 2.2 mg/dL (1.6-2.6); Osmolality,Calculated 299 (280-300); Potassium 4.2 mEq/L (3.5-5.1); Sodium 140 mEq/L (136-145); eGFR For African Americans > 60 (> 60); eGFR For Non-African Americans > 60 (> 60)
[2020-05-05] MEDS: Ipratropium/Albuterol Neb 3 ML IH SCH ×4 (03:25→22:02)
[2020-05-05] MEDS: Meropenem 1,000 MG in Water for inj. (sterile) 20 ML IVP SCH ×3 (04:36→19:54)
[2020-05-05] MEDS: Levothyroxine 25 MCG TABLET PO SCH (06:03)
[2020-05-05] MEDS: Morphine Sulfate ER (12 HR) 30 MG TABLET.ER PO SCH ×3 (06:03→21:02)
[2020-05-05] MEDS: predniSONE 20 MG TABLET PO SCH (08:32)
[2020-05-05] MEDS: DilTIAZem CD (24hr) 240 MG CAP.ER.24H PO SCH (08:32)
[2020-05-05] MEDS: Cholecalciferol (D-3) 1,000 UNIT (25MCG) TABLET PO SCH (08:32)
[2020-05-05] MEDS: Gabapentin 100 MG CAPSULE PO SCH ×3 (08:32→19:54)
[2020-05-05] MEDS: Sennosides 8.6 MG TABLET PO SCH (08:32)
[2020-05-05] MEDS: Furosemide 20 MG TABLET PO SCH (08:32)
[2020-05-05] MEDS: Metoprolol XL (24 HR) Succ 25 MG TAB.ER.24H PO SCH ×2 (08:33→19:54)
[2020-05-05] MEDS: Loratadine 10 MG TABLET PO SCH (08:33)
[2020-05-05] MEDS: Apixaban 5 MG TABLET PO SCH ×2 (08:33→19:54)
[2020-05-05] MEDS: Cyanocobalamin (B-12) 1,000 MCG TABLET PO SCH (08:33)
[2020-05-05] MEDS: Tobramycin for INHALATION 300 MG/5 ML AMPUL IH SCH ×2 (10:31→22:03)
[2020-05-05] MEDS: Budesonide/Formoterol 160/4.5 1 PUFF INH IH SCH ×2 (10:31→22:02)
[2020-05-05] MEDS: polyethylene glycoL 3350 17 GM POWD.PACK PO SCH (17:26)
[2020-05-05] MEDS: Azithromycin 250 MG TABLET PO SCH (17:26)
[2020-05-05] MEDS: Mirtazapine 15 MG TABLET PO SCH (19:54)
[2020-05-06] MEDS: Ipratropium/Albuterol Neb 3 ML IH SCH ×2 (03:33→11:04)
[2020-05-06] MEDS: Levothyroxine 25 MCG TABLET PO SCH (04:20)
[2020-05-06] MEDS: Morphine Sulfate ER (12 HR) 30 MG TABLET.ER PO SCH ×2 (04:20→14:00)
[2020-05-06] MEDS: Meropenem 1,000 MG in Water for inj. (sterile) 20 ML IVP SCH ×2 (04:20→13:59)
[2020-05-06] MEDS: Azithromycin 250 MG TABLET PO SCH (08:58)
[2020-05-06] MEDS: Cyanocobalamin (B-12) 1,000 MCG TABLET PO SCH (08:59)
[2020-05-06] MEDS: Apixaban 5 MG TABLET PO SCH (08:59)
[2020-05-06] MEDS: Furosemide 20 MG TABLET PO SCH (08:59)
[2020-05-06] MEDS: predniSONE 20 MG TABLET PO SCH (08:59)
[2020-05-06] MEDS: Cholecalciferol (D-3) 1,000 UNIT (25MCG) TABLET PO SCH (09:00)
[2020-05-06] MEDS: Gabapentin 100 MG CAPSULE PO SCH ×2 (09:01→14:00)
[2020-05-06] MEDS: Loratadine 10 MG TABLET PO SCH (09:01)
[2020-05-06] MEDS: Sennosides 8.6 MG TABLET PO SCH (09:02)
[2020-05-06] MEDS: polyethylene glycoL 3350 17 GM POWD.PACK PO SCH (09:02)
[2020-05-06] MEDS: DilTIAZem CD (24hr) 240 MG CAP.ER.24H PO SCH (09:25)
[2020-05-06] MEDS: Metoprolol XL (24 HR) Succ 25 MG TAB.ER.24H PO SCH (09:25)
[2020-05-06] MEDS: Budesonide/Formoterol 160/4.5 1 PUFF INH IH SCH (11:04)
[2020-05-06] MEDS: Tobramycin for INHALATION 300 MG/5 ML AMPUL IH SCH (11:04)
[2020-05-06 12:52] VITALS: BP 107/70
[2020-05-06] MEDS ORDERED: FLU Vac QV 20-21 (6Month+)/PF 0.5 ML SYRINGE IM ONE (13:27)
== END 2020-05-06 14:43 | disposition home health service (06) | DRG 177 ==
LOC: 2ANU 13:11 → EMEROOARM 13:11 → SUATTDRO 17:05 → 2ANU 17:20
PROVIDERS: ADMIT Internal Medicine; ATTEND Internal Medicine